=== PATIENT | female | born 1980 | race Hispanic/Latino ===

== ENCOUNTER 2018-11-29 10:14 | Inpatient (IN) | payer OTHER, SELFPAY ==
[2018-11-29 10:59] LABS: Absolute Lymphocytes (CBC) 0.7 K/uL (0.7-4.9); Absolute Neutrophil 10.1 K/uL (1.8-8.0); Basophils % 0.1 % (0-1.3); Lymphocytes % 6.3 % (15.3-44.8); MPV 8.6 fL (7.6-11.3); Monocytes % 8.8 % (3.3-12.3); RBC Red Blood Cell Count 4.02 M/uL (3.86-4.86)
[2018-11-29] MEDS ORDERED: NA CHLORIDE 0.9% 1,000 ML ONE ×2 (11:03→15:27)
--- NOTE | 2018-11-29 11:11 | RAD REPORT ---
EXAM DESCRIPTION: RAD - Chest Single View - 11/29/2018 11:03 am CLINICAL HISTORY: CHEST PAIN Chest pain. COMPARISON: CHEST SINGLE VIEW dated 06/06/2015 FINDINGS: Portable technique limits examination quality. Mild linear opacities are seen in the left lung base, suspicious developing infiltrate/pneumonia. The heart is normal in size. No displaced fractures.
[2018-11-29 11:14] LABS: BUN Blood Urea Nitrogen 10 mg/dL (7-18); Bicarbonate 25 mmol/L (21-32); Glucose Level 104 mg/dL (74-106); NT PRO-BNP 1895 pg/mL (<125); Potassium 3.5 mmol/L (3.5-5.1); Sodium Level 133 mmol/L (136-145); Troponin (Emerg Dept Use Only) < 0.02 ng/mL (0.0-0.045)
[2018-11-29] MEDS ORDERED: IBUPROFEN 200 MG TAB PO ONE (12:39)
[2018-11-29] MEDS ORDERED: Levofloxacin 750mg IV 750 MG/150 ML BAG IV ONE (12:40)
[2018-11-29 13:28] LABS: Urine Blood NEGATIVE (NEG); Urine Glucose NEGATIVE (NEG); Urine Protein NEGATIVE (NEG); Urine Specific Gravity <1.005 (1.005-1.030); Urine pH 6.5 (5.0-7.0)
--- NOTE | 2018-11-29 13:42 | RAD REPORT ---
EXAM DESCRIPTION: CT - Chest For Pe Angio - 11/29/2018 1:27 pm CLINICAL HISTORY: Chest pain COMPARISON: November 29, 2018 chest x-ray TECHNIQUE: Dynamically enhanced axial 3 mm thick images of the chest were obtained during administra tion of <100> mL Isovue 370 IV contrast. Coronal and oblique reconstruction images were generated and reviewed. Exam utilizes a protocol for optimal evaluation of pulmonary arterial tree. Maximum intensity projections 3D imaging was utilized All CT scans are performed using dose optimization technique as appropriate and may include automated exposure control or mA/KV adjustment according to patient size. FINDINGS: A pulmonary embolus is not seen. A thoracic aortic aneurysm is not noted. A pleural effusion is not seen. A pericardial effusion is not seen. A 2 centimeter left lower lobe opacity. [id number] lingular and right lower lobe alveolar opaci ties. Fatty liver IMPRESSION: Negative for a pulmonary embolism. These findings most likely represent a bilateral pneumonia. This should be followed until it is clear to help exclude a post obstructive process/underlying mass
[2018-11-29 13:50] LABS: Urine Bacteria 20-50 /HPF (<20); Urine Culture Reflex Order NOT NEEDED; Urine RBC <5 /HPF (NONE SEEN)
--- NOTE | 2018-11-29 13:57 | EDPHYS ---
Physician Documentation [facility] – [place], [place] Name: Serina Coello Age: 38 yrs Sex: Female : 1980 Arrival Date: 11/29/2018 Time: 10:18 Bed 4 Private MD: ED Physician Dennis Thao HPI: 11/29 10:33 This 38 yrs old Female presents to ER via Wheelchair with complaints of Chest rn Pain. 10:33 The patient or guardian reports chest pain that is located primarily in the anterior rn chest wall, left. The pain radiates to the left arm, the left shoulder. Associated signs and symptoms: Pertinent positives: cough, shortness of breath. The chest pain is described as tight. Duration: The patient or guardian reports a single episode. Modifying factors: The symptoms are alleviated by nothing. the symptoms are aggravated by nothing. Severity of pain: At its worst the pain was moderate in the emergency department the pain is unchanged. The patient has experienced a previous episode. Reports fever and chills last night, + mild cough and congestion, chest tightness, more trouble getting deep breath since last night, constant, not better this morning so came in for eval. Reports grandfather had heart problems at young age and of heart attack. No abd pain/vomiting/diarrhea. . 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 - Social history:: Smoking status: Patient uses tobacco products, smokes .75 packs per day, Patient uses alcohol, only on a social basis. - Ebola Screening: : No symptoms or risks identified at this time. - Family history:: pertinent for heart disease. - Hospitalizations: : No recent hospitalization is reported. ROS: 10:35 Constitutional: + fever and chills Eyes: Negative for injury, pain, redness, and rn occupational health, Neck: Negative for injury, pain, and swelling, Cardiovascular: Negative for chest pain, palpitations, and edema, Respiratory: + cough and sob Abdomen/GI: Negative for abdominal pain, nausea, vomiting, diarrhea, and constipation, Back: Negative for injury and pain, : Negative for injury, bleeding, discharge, and swelling, MS/Extremity: Negative for injury and deformity, Skin: Negative for injury, rash, and discoloration, Neuro: Negative for headache, weakness, numbness, tingling, and seizure. Exam: 10:35 Constitutional: This is a well developed, well nourished patient who is awake, alert, rn appears anxious Head/Face: Normocephalic, atraumatic. Eyes: Pupils equal round and reactive to light, extra-ocular motions intact. Lids and lashes normal. Conjunctiva and sclera are non-icteric and not injected. Cornea within normal limits. Periorbital areas with no swelling, redness, or edema. ENT: MMM Neck: Trachea midline, no thyromegaly or masses palpated, and no cervical lymphadenopathy. Supple, full range of motion without nuchal rigidity, or vertebral point tenderness. No Meningismus. Cardiovascular: tachycardic, regular, no murmur Respiratory: mild tachypnea, no retractions, clear bilaterally Abdomen/GI: soft, non-tender Skin: Warm, dry MS/ Extremity: Pulses equal, no cyanosis. Neurovascular intact. Full, normal range of motion. Equal circumference. Neuro: Awake and alert, GCS 15, oriented to person, place, time, and situation. Cranial nerves II-XII grossly intact. Motor strength 5/5 in all extremities. Sensory grossly intact. Cerebellar exam normal. Normal gait. Vital Signs: 10:30 BP 129 / 97; Pulse 107; Resp 20; Temp 97.5(O); Pulse Ox 98% on R/A; Weight 58.97 kg; sv Height 5 ft. 5 in. (165.10 cm); Pain 6/10; 11:10 BP 82 / 65; Pulse 102; Resp 18; Pulse Ox 100% on R/A; hb 12:00 BP 74 / 58; Pulse 98; Resp 16; Pulse Ox 100% on R/A; hb 12:30 BP 82 / 65; Pulse 100; Resp 24; Pulse Ox 100% on R/A; Pain 7/10; hb 12:45 BP 82 / 63; Pulse 104; Resp 21; Pulse Ox 98% on R/A; hb 13:40 BP 94 / 66 LA Supine (auto/pedi); Pulse 104; Resp 22; Pulse Ox 100% on R/A; em1 14:21 BP 93 / 67; Pulse 102; Resp 21; Pulse Ox 99% on R/A; hb 15:02 BP 82 / 57; Pulse 107; Resp 24; Pulse Ox 97% on R/A; hb 15:30 BP 78 / 48; Pulse 107; Resp 22; Pulse Ox 98% on R/A; hb 15:56 BP 96 / 77; Pulse 103; Resp 24; Pulse Ox 96% on R/A; hb 16:42 BP 102 / 89; Pulse 102; Resp 24; Pulse Ox 96% on R/A; hb 10:30 Body Mass Index 21.63 (58.97 kg, 165.10 cm) sv MDM: 10:21 Patient medically screened. rn 13:54 Differential diagnosis: chest wall pain, costochondritis, pleurisy, pneumonia, rn pneumothorax, pulmonary embolus. Data reviewed: vital signs, nurses notes, lab test result(s), EKG, radiologic studies, CT scan, plain films, and as a result, I will admit patient. Test interpretation: by ED physician or midlevel provider: plain radiologic studies, XRAY with LLL pneumonia. Counseling: I had a detailed discussion with the patient and/or guardian regarding: the historical points, exam findings, and any diagnostic results supporting the discharge/admit diagnosis, lab results, radiology results, the need for further work-up and treatment in the hospital. Admission orders: after a detailed discussion of the patient's condition and case, the admit orders are written by me. ED course: Pt with multifocal pneumonia, elevated WBC and procalcitonin, borderline BP, improving with fluids, will admit. . 11/29 10:28 Order name: Basic Metabolic Panel; Complete Time: 11: rn 11/29 10:28 Order name: CBC with Diff; Complete Time: 11: rn 11/29 10:28 Order name: NT PRO-BNP; Complete Time: rn 11/29 10:28 Order name: Troponin (emerg Dept Use Only); Complete Time: 11: rn 11/29 10:28 Order name: Flu; Complete Time: : rn 11/29 10:28 Order name: Procalcitonin; Complete Time: 13: rn 11/29 10:28 Order name: XRAY Chest (1 view); Complete Time: 11: rn 11/29 10:28 Order name: D-Dimer; Complete Time: 11:12 rn 11/29 10:28 Order name: Urine Microscopic Only; Complete Time: 13:54 rn 11/29 11:48 Order name: CT Chest For PE Angio; Complete Time: 13:43 rn 11/29 11:48 Order name: Blood Culture Adult (2) rn 11/29 13:20 Order name: Urine Dipstick--Ancillary (enter results); Complete Time: 13:43 bd 11/29 10:28 Order name: EKG; Complete Time: 10:29 rn 11/29 10:28 Order name: Cardiac monitoring; Complete Time: 10:49 rn 11/29 10:28 Order name: EKG - Nurse/Tech; Complete Time: 10:49 rn 11/29 10:28 Order name: IV Saline Lock; Complete Time: 10:49 rn 11/29 10:28 Order name: Labs collected and sent; Complete Time: 10:49 rn 11/29 10:28 Order name: O2 Per Protocol; Complete Time: 10:49 rn 11/29 10:28 Order name: O2 Sat Monitoring; Complete Time: 10:49 rn 11/29 10:28 Order name: Urine Dipstick-Ancillary (obtain specimen); Complete Time: 13:26 rn 11/29 10:28 Order name: Urine Test (obtain specimen); Complete Time: 13:26 rn Administered Medications: 10:51 Drug: NS 0.9% 1000 ml Route: IV; Rate: 1000 ml; Site: right antecubital; hb 11:20 Follow up: Response: No adverse reaction; IV Status: Completed infusion; IV Intake: hb 1000ml 11:54 Drug: NS 0.9% 1000 ml Route: IV; Rate: 1000 ml; Site: right antecubital; hb 12:33 Follow up: Response: No adverse reaction; IV Status: Completed infusion; IV Intake: hb 1000ml 11:55 Drug: NS 0.9% 1000 ml Route: IV; Rate: 1000 ml; Site: right antecubital; hb 14:25 Follow up: Response: No adverse reaction; IV Status: Completed infusion; IV Intake: hb 1000ml 12:36 Drug: LevaQUIN 750 mg Volume: 150 ml; Route: IVPB; Infused Over: 90 mins; Site: right hb antecubital; 14:02 Follow up: Response: No adverse reaction; IV Status: Completed infusion; IV Intake: hb 150ml 12:36 Drug: Motrin 800 mg Route: PO; hb 13:30 Follow up: Response: No adverse reaction; Pain is decreased hb 15:35 Drug: NS 0.9% 1000 ml Route: IV; Rate: 1000 ml; Site: right antecubital; hb 16:29 Follow up: Response: No adverse reaction; IV Intake: 1000ml hb 16:30 Follow up: Response: No adverse reaction; IV Status: Completed infusion; IV Intake: hb 1000ml Disposition: 11/29/18 13:56 Hospitalization ordered by Harmeet Ponce for Inpatient Admission. Preliminary diagnosis are Multi-focal Pneumonia, Chest pain, unspecified. - Bed requested for Telemetry/MedSurg (Inpatient). - Status is Inpatient Admission. dm5 - Condition is Stable. - Problem is new. - Symptoms have improved. UTI on Admission? No Signatures: Dispatcher [employer] EDMS Viktoriya Monson RN RN [facility] Zulma Cheung RN RN sv Woody, Diana, RN RN Dennis Thao MD MD rn Baxter, Heather, RN RN Corrections: (The following items were deleted from the chart) 10:35 10:35 Family history: not pertinent, rn rn 16:38 13:56 Hospitalization Ordered by Harmeet Ponce DO for Inpatient Admission. Preliminary dw diagnosis is Multi-focal Pneumonia; Chest pain, unspecified. Bed requested for Telemetry/MedSurg (Inpatient). Status is Inpatient Admission. Condition is Stable. Problem is new. Symptoms have improved. UTI on Admission? No. rn 17:45 16:38 11/29/2018 13:56 Hospitalization Ordered by Harmeet Ponce DO for Inpatient dm5 Admission. Preliminary diagnosis is Multi-focal Pneumonia; Chest pain, unspecified. Bed requested for Telemetry/MedSurg (Inpatient). Status is Inpatient Admission. Condition is Stable. Problem is new. Symptoms have improved. UTI on Admission? No. dw
--- NOTE | 2018-11-29 13:57 | ER ---
Nurse's Notes [facility] Name: Serina Coello Age: 38 yrs Sex: Female : 1980 Arrival Date: 11/29/2018 Time: 10:18 Bed 4 Private MD: Diagnosis: Multi-focal Pneumonia;Chest pain, unspecified Presentation: 11/29 10:21 Presenting complaint: Patient states: left sided chest pain with left arm numbness, sv head heavy, chest congestion, subjective fever x 1 day. Stated her BP at work was 60/40 and has been dizzy. Transition of care: patient was not received from another setting of care. Onset of symptoms was November 28, 2018. Risk Assessment: Do you want to hurt yourself or someone else? Patient reports no desire to harm self or others. Initial Sepsis Screen: Does the patient meet any 2 criteria? No. Patient's initial sepsis screen is negative. Does the patient have a suspected source of infection? No. Patient's initial sepsis screen is negative. Care prior to arrival: None. 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 - Social history:: Smoking status: Patient uses tobacco products, smokes .75 packs per day, Patient uses alcohol, only on a social basis. - Ebola Screening: : No symptoms or risks identified at this time. - Family history:: pertinent for heart disease. - Hospitalizations: : No recent hospitalization is reported. Screenin:52 Abuse screen: Denies threats or abuse. Denies injuries from another. Nutritional hb screening: No deficits noted. Tuberculosis screening: No symptoms or risk factors identified. Fall Risk None identified. Assessment: 10:52 General: Appears in no apparent distress. Behavior is calm, cooperative. Pain: hb Complains of pain in chest Pain radiates to left arm Pain currently is 4 out of 10 on a pain scale. Pain began gradually, 1 day ago. Neuro: Level of Consciousness is awake, alert, obeys commands, Oriented to person, place, time, situation. Cardiovascular: Heart tones S1 S2 present Capillary refill < 3 seconds Patient's skin is warm and dry. Respiratory: Reports cough that is Airway is patent Respiratory effort is even, unlabored, Respiratory pattern is regular, symmetrical, Breath sounds are clear bilaterally. GI: No signs and/or symptoms were reported involving the gastrointestinal system. : No signs and/or symptoms were reported regarding the genitourinary system. EENT: No signs and/or symptoms were reported regarding the EENT system. Derm: Skin is intact, is healthy with good turgor. 11:30 Reassessment: SBP 70s-80s, GCS15, Dr. Thao aware, NS bolus infusing at this time. hb Family remains at bedside. 12:30 Reassessment: Patient appears in no apparent distress at this time. Patient and/or hb family updated on plan of care and expected duration. Pain level reassessed. Patient is alert, oriented x 3, equal unlabored respirations, skin warm/dry/pink. 13:30 Reassessment: Patient appears in no apparent distress at this time. Patient and/or hb family updated on plan of care and expected duration. Pain level reassessed. Patient is alert, oriented x 3, equal unlabored respirations, skin warm/dry/pink. 14:22 Reassessment: Patient appears in no apparent distress at this time. Patient and/or hb family updated on plan of care and expected duration. Pain level reassessed. Patient is alert, oriented x 3, equal unlabored respirations, skin warm/dry/pink. Admission ordered, awaiting room assignment at this time. 15:00 Reassessment: Patient appears in no apparent distress at this time. No changes from previously documented assessment. Patient and/or family updated on plan of care and expected duration. Pain level reassessed. Patient is alert, oriented x 3, equal unlabored respirations, skin warm/dry/pink. 15:35 Reassessment: [id number], HR 107, Dr. Thao notified, repeat NS bolus administered as hb ordered. Awaiting room assignment at this time. Family remains at bedside. 16:30 Reassessment: Patient appears in no apparent distress at this time. Patient and/or hb family updated on plan of care and expected duration. Pain level reassessed. Patient is alert, oriented x 3, equal unlabored respirations, skin warm/dry/pink. Patient states symptoms have improved. Vital Signs: 10:30 BP 129 / 97; Pulse 107; Resp 20; Temp 97.5(O); Pulse Ox 98% on R/A; Weight 58.97 kg; sv Height 5 ft. 5 in. (165.10 cm); Pain 6/10; 11:10 BP 82 / 65; Pulse 102; Resp 18; Pulse Ox 100% on R/A; hb 12:00 BP 74 / 58; Pulse 98; Resp 16; Pulse Ox 100% on R/A; hb 12:30 BP 82 / 65; Pulse 100; Resp 24; Pulse Ox 100% on R/A; Pain 7/10; hb 12:45 BP 82 / 63; Pulse 104; Resp 21; Pulse Ox 98% on R/A; hb 13:40 BP 94 / 66 LA Supine (auto/pedi); Pulse 104; Resp 22; Pulse Ox 100% on R/A; em1 14:21 BP 93 / 67; Pulse 102; Resp 21; Pulse Ox 99% on R/A; hb 15:02 BP 82 / 57; Pulse 107; Resp 24; Pulse Ox 97% on R/A; hb 15:30 BP 78 / 48; Pulse 107; Resp 22; Pulse Ox 98% on R/A; hb 15:56 BP 96 / 77; Pulse 103; Resp 24; Pulse Ox 96% on R/A; hb 16:42 BP 102 / 89; Pulse 102; Resp 24; Pulse Ox 96% on R/A; hb 10:30 Body Mass Index 21.63 (58.97 kg, 165.10 cm) sv ED Course: 10:18 Patient arrived in ED. mr 10:21 Dennis Thao MD is Attending Physician. rn 10:24 Cuca Alexander, RN is Primary Nurse. iw 10:29 Triage completed. sv 10:30 Arm band placed on. sv 10:39 EKG done, by ED staff, reviewed by Dennis Thao MD. em1 10:47 Cuca Alexander, RN is Primary Nurse. iw 10:47 Primary Nurse role handed off by Cuca Alexander, RN hb 10:47 Gabriela Carrillo, RN is Primary Nurse. hb 10:51 Initial lab(s) drawn, by ED staff, sent to lab. Flu and/or RSV swab sent to lab. em1 Inserted saline lock: 20 gauge in right antecubital area, using aseptic technique. Blood collected. 10:52 Patient has correct armband on for positive identification. Placed in gown. Bed in low hb position. Call light in reach. Side rails up X 1. forensic anthropologist on. Pulse ox on. NIBP on. 10:52 Patient maintains SpO2 saturation greater than 95% on room air. hb 11:03 XRAY Chest (1 view) In Process Unspecified. EDMS 11:04 X-ray completed. Portable x-ray completed in exam room. Patient tolerated procedure sw well. 11:11 Notified ED physician of a critical lab result(s). DDIMER [id number]. ss 12:07 Radiology exam delayed due to test not completed at this time. sj 12:58 Radiology exam delayed due to test not completed at this time. kw1 13:25 CT completed. Patient tolerated procedure well. Patient moved to CT via wheelchair. ls3 Patient moved back from CT. 13:27 CT Chest For PE Angio In Process Unspecified. EDMS 13:55 Harmeet Ponce DO is Hospitalizing Provider. rn 17:30 No provider procedures requiring assistance completed. Patient admitted, IV remains in hb place. Administered Medications: 10:51 Drug: NS 0.9% 1000 ml Route: IV; Rate: 1000 ml; Site: right antecubital; hb 11:20 Follow up: Response: No adverse reaction; IV Status: Completed infusion; IV Intake: hb 1000ml 11:54 Drug: NS 0.9% 1000 ml Route: IV; Rate: 1000 ml; Site: right antecubital; hb 12:33 Follow up: Response: No adverse reaction; IV Status: Completed infusion; IV Intake: hb 1000ml 11:55 Drug: NS 0.9% 1000 ml Route: IV; Rate: 1000 ml; Site: right antecubital; hb 14:25 Follow up: Response: No adverse reaction; IV Status: Completed infusion; IV Intake: hb 1000ml 12:36 Drug: LevaQUIN 750 mg Volume: 150 ml; Route: IVPB; Infused Over: 90 mins; Site: right hb antecubital; 14:02 Follow up: Response: No adverse reaction; IV Status: Completed infusion; IV Intake: hb 150ml 12:36 Drug: Motrin 800 mg Route: PO; hb 13:30 Follow up: Response: No adverse reaction; Pain is decreased hb 15:35 Drug: NS 0.9% 1000 ml Route: IV; Rate: 1000 ml; Site: right antecubital; hb 16:29 Follow up: Response: No adverse reaction; IV Intake: 1000ml hb 16:30 Follow up: Response: No adverse reaction; IV Status: Completed infusion; IV Intake: hb 1000ml Intake: 11:20 IV: 1000ml; Total: 1000ml. hb 12:33 IV: 1000ml; Total: 2000ml. hb 14:02 IV: 150ml; Total: 2150ml. hb 14:25 IV: 1000ml; Total: 3150ml. hb 16:29 IV: 1000ml; Total: 4150ml. hb 16:30 IV: 1000ml; Total: 5150ml. hb Outcome: 13:56 Decision to Hospitalize by Provider. rn 17:44 Admitted to Tele accompanied by nurse, via stretcher, with chart. dm5 17:44 Condition: stable 17:44 Discharge instructions given to patient, Instructed on the need for admit. 17:45 Patient left the ED. dm5 Signatures: Dispatcher [employer] EDMS Viktoriya Monson, RN RN dm5 Zulma Cheung RN ANDREY Montgomery, Courtney mr Wlison, Cuca Winn, RN Dennis Engel MD MD rn Martinez, Saji em1 Junie Sutherland RN RN ss Warren, Shannon sw Baxter, Heather, RN RN Evin, Mary kw1 Madhav Pritchett ls3 Corrections: (The following items were deleted from the chart) 10:35 10:35 Family history: not pertinent, rn rn 10:37 10:21 Presenting complaint: Patient states: left sided chest pain with left arm sv numbness, head heavy, chest congestion, subjective fever x 1 day. sv
--- NOTE | 2018-11-29 14:58 | P.HP ---
Certification for Inpatient Patient admitted to: Inpatient With expected LOS: >2 Midnights Patient will require the following post-hospital care: None Practitioner: I am a practitioner with admitting privileges, knowledge of patient current condition, hospital course, and medical plan of care. Services: Services provided to patient in accordance with Admission requirements found in Title 42 Section 412.3 of the Code of Federal Regulations Patient History Date of Service: 11/29/18 Primary Care Provider: Dr. Berkowitz Reason for admission: Chest pain, shortness of breath, fever History of Present Illness: 38-year-old female presented to the emergency room with chest pain, shortness of breath and fever. She reports chest pain and shortness of breath starting yesterday. She also reported fever. She had reported a cough about 3 weeks ago. She never really cleared from the cough. Last night she start to notice increased chills and sweats. She felt very tired and weak today. She came to the ER for further evaluation. In the ER patient was evaluated. Initially blood pressure was stable. Then she had some hypotension. She was given IV fluid bolus. Fever and tachycardia was noted. Initial chest x-ray showed left lower lobe pneumonia. CT chest showed no pulmonary embolism but multifocal bilateral pneumonia noted white count 11.9, hemoglobin 14. Pro calcitonin elevated at 23.6. Sodium 133, potassium 3.5, BUN of 10, creatinine 1.2 with a GFR 50. Patient was given IV antibiotic therapy. Patient admitted for further treatment. When I saw the patient in ER, she appeared comfortable. Some chills noted. Patient with underlying history of fatty liver-PLATA,hypothyroidism, depression and tobacco use. Allergies PENICILLINS Allergy (Uncoded 06/06/15 22:23) Unknown Home medications list reviewed: Yes Home Medications: Esomeprazole Mag Trihydrate [Nexium] 1 cap PO DAILY 04/14/17 Levothyroxine Sodium 50 mcg PO DAILY 04/14/17 - Past Medical/Surgical History Diabetic: No -: Hypothyroidism -: Depression -: Fatty liver/PLATA -: Tobacco abuse -: Alcohol use -: History of gastric surgery -: Gastric sleeve Psychosocial/ Personal History: Patient is . She has 3 children. 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 - Family History Father -: Heart disease, Liver disease, Other (see notes) (Fatty liver) - Social History Smoking Status: Light Tobacco smoker (1-9 cigarettes/day) Smoking therapy provided: Yes Patient receptive to therapy: Yes Alcohol use: Yes CD- Drugs: No Caffeine use: Yes Place of Residence: Home Review of Systems General: Fever, Chills, Sweats, Weakness, Malaise, As per HPI Eyes: Unremarkable ENT: Nose Congestion, As per HPI Respiratory: Cough, Shortness of Breath, SOB with Excertion, As per HPI Cardiovascular: Chest Pain, As per HPI Gastrointestinal: Unremarkable Genitourinary: Dysuria, As per HPI Musculoskeletal: As per HPI Integumentary: Unremarkable Neurological: As per HPI Lymphatics: Unremarkable Physical Examination - Physical Exam General: Alert, In no apparent distress, Oriented x3, Cooperative HEENT: Atraumatic, Normocephalic, Other (Nasal congestion bilateral), EOMI Neck: Supple Respiratory: Crackles/rales (Crackles to the bases) Cardiovascular: Normal pulses, Regular rate/rhythm Gastrointestinal: Normal bowel sounds, Soft and benign, Non-distended Musculoskeletal: No erythema, No tenderness, No warmth Integumentary: No tenderness/swelling, No erythema, No warmth, No cyanosis Neurological: Normal speech, Normal strength at 5/5 x4 extr, Normal tone - Studies Laboratory Data (last 24 hrs) 11/29/18 10:48: WBC 11.9 H, Hgb 14.7, Hct 42.0, Plt Count 210 11/29/18 10:48: Sodium 133 L, Potassium 3.5, BUN 10, Creatinine 1.20, Glucose 104 Microbiology Data (last 24 hrs): 11/29/18 10:48 Nasopharnyx Influenza Type A Antigen Screen - Final 11/29/18 10:48 Nasopharnyx Influenza Type B Antigen Screen - Final Assessment and Plan - Plan Impression: Chest pain, shortness of breath, fever secondary to sepsis related to bilateral multifocal pneumonia and UTI Hypothyroidism Depression Tobacco and alcohol use Plan: Chest pain, shortness of breath, fever secondary to sepsis related to bilateral multifocal pneumonia and UTI: Patient will be admitted for further treatment. Will continue with IV Levaquin. Continue with aggressive IV fluids. Patient given fluid bolus in the emergency room. Will continue sepsis protocol. Will monitor closely. Blood, sputum and urine cultures obtained. Will provide medication for cough and congestion. Will continue with DVT prophylaxis- Lovenox. Recheck chest x-ray tomorrow. Maintain sats above 90%. Will provide medication for shortness of breath. Will consult pulmonology for further recommendation. Hypothyroidism: Restart home medication. Depression: Restart home medication. Tobacco and alcohol use: Will address lifestyle modification education and cessation. Discharge Plan: Home Plan to discharge in: Greater than 2 days - Advance Directives Does patient have a Living Will: No Does patient have a Durable POA for Healthcare: No - Code Status/Comfort Care Code Status Assessed: Yes (Patient is full code.) Time Spent Managing Pts Care (In Minutes): 55
--- NOTE | 2018-11-29 15:42 | EKG ---
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
[2018-11-29] MEDS: NA CHLORIDE 0.9% 1,000 ML IV SCH (17:42)
[2018-11-29] MEDS: ALBUTEROL 2.5 MG/3 ML NEB SOL NEB PRN (20:30)
[2018-11-29] MEDS: FAMOTIDINE 20 MG TAB PO SCH (20:57)
[2018-11-29] MEDS: GUAIFENESIN 600 MG SA TAB PO SCH (20:57)
[2018-11-29] MEDS ORDERED: MELATONIN 3 MG TABLET PO ONE (22:25)
[2018-11-29] MEDS: NICOTINE 21 MG/PAT TD SCH (23:22)
[2018-11-29] MEDS: TRAMADOL HCL 50 MG TAB PO PRN (23:22)
[2018-11-30] MEDS: NA CHLORIDE 0.9% 1,000 ML IV SCH ×4 (01:39→17:11)
[2018-11-30] MEDS: ALBUTEROL 2.5 MG/3 ML NEB SOL NEB PRN ×2 (02:30→14:50)
[2018-11-30] MEDS ORDERED: NA CHLORIDE 0.9% 1,000 ML IV ONE (03:29)
--- NOTE | 2018-11-30 05:00 | P.INFCA ---
Sepsis Focused Assessment - Focused Assessment Complete? Sepsis Focused Assessment Completed?: Yes - Sepsis Screen Result Severe Sepsis: Positive - Evaluation Current stage of sepsis: Severe sepsis - Vital Signs Reviewed: Yes Temperature: 98.6 F Heart rate: 111 Blood Pressure: 90/54 Respiratory Rate: 22 O2 Sat by Pulse Oximetry: 97 - Examination Date exam was performed: 11/29/18 Time exam was performed: 21:00 Heart: Regular rate/rhythm Lungs: Crackles Peripheral pulses: 3+ Normal Capillary refill: <2 Seconds Skin examination: Normal turgor
[2018-11-30] MEDS: LEVOTHYROXINE SOD 0.05 MG TABLET PO SCH (05:54)
[2018-11-30] MEDS: TRAMADOL HCL 50 MG TAB PO PRN (05:54)
[2018-11-30] MEDS: NICOTINE 21 MG/PAT TD SCH (08:19)
[2018-11-30] MEDS: CITALOPRAM 10 MG TABLET PO SCH (08:19)
[2018-11-30] MEDS: FOLIC ACID 1 MG TABLET PO SCH (08:20)
[2018-11-30] MEDS: FAMOTIDINE 20 MG TAB PO SCH ×2 (08:20→20:11)
[2018-11-30] MEDS: GUAIFENESIN 600 MG SA TAB PO SCH ×2 (08:20→20:11)
[2018-11-30] MEDS: Levofloxacin 750mg IV 750 MG/150 ML BAG IV SCH (08:20)
--- NOTE | 2018-11-30 08:31 | P.CNS ---
Date of Consult: 11/30/18 Primary Care Provider: Dr. Berkowitz Chief Complaint: Pneumonia History of Present Illness: Patient is 38 years of age has had chest congestion for several weeks including intermittent cough she took [id number] Mucinex got worse over the weekend developed so throat on Thursday she had a high fever, shaking chills and some left -sided chest pain felt lightheaded and appeared in the emergency room with a diagnosis of left lower lobe pneumonia feels a little better still having the above symptoms no history off prior cardiopulmonary problems patient is an active smoker Allergies PENICILLINS Allergy (Uncoded 11/29/18 18:12) Hives Home Medications: Levothyroxine Sodium 50 mcg PO DAILY 04/14/17 Citalopram [Celexa*] 20 mg PO DAILY 11/29/18 - Past Medical/Surgical History Diabetic: No -: Hypothyroidism -: Depression -: Fatty liver/PLATA -: Tobacco abuse -: Alcohol use -: History of gastric surgery -: Gastric sleeve Psychosocial/ Personal History: Patient is . She has 3 children. 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 - Family History Father Medical History: Heart disease, Liver disease, Other (see notes) Mother Notes: cirrohsis - Social History Smoking Status: Current every day smoker Alcohol use: Yes CD- Drugs: No Caffeine use: Yes Place of Residence: Home Review of Systems 10-point ROS is otherwise unremarkable General: Weakness Respiratory: Cough, Shortness of Breath Cardiovascular: Chest Pain Physical Examination Temp Pulse Resp BP Pulse Ox 98.6 F 111 H 22 H 90/54 L 97 11/30/18 05:00 11/30/18 05:00 11/30/18 05:00 11/30/18 05:00 11/30/18 05:00 General: Alert, Oriented x3 HEENT: Atraumatic Neck: Supple Respiratory: Clear to auscultation bilaterally Cardiovascular: No edema, Regular rate/rhythm Gastrointestinal: Normal bowel sounds, Soft and benign Laboratory Data (last 24 hrs) 11/29/18 10:48: WBC 11.9 H, Hgb 14.7, Hct 42.0, Plt Count 210 11/29/18 10:48: Sodium 133 L, Potassium 3.5, BUN 10, Creatinine 1.20, Glucose 104 - Problems (1) Pneumonia Current Visit: Yes Status: Acute Plan: Patient is 38 years of age admitted with acute left lower lobe pneumonia not visible on the chest x-ray white count is mildly elevated patient's blood pressure is low on IV levofloxacin labs reviewed cultures are all pending continue with IV levofloxacin fluid boluses saturation satisfactory still complaining of some chest discomfort Qualifiers: Laterality: left Lung location: lower lobe of lung
[2018-11-30 08:49] LABS: Absolute Lymphocytes (CBC) 1.1 K/uL (0.7-4.9); Absolute Monocytes 0.5 K/uL (0.1-1.3); Absolute Neutrophil 7.5 K/uL (1.8-8.0); Basophils % 0.2 % (0-1.3); Eosinophils % 0.6 % (0-4.4); Hematocrit 37.5 % (36.0-45.0); Lymphocytes % 12.2 % (15.3-44.8); MPV 8.9 fL (7.6-11.3); Monocytes % 5.1 % (3.3-12.3); RBC Red Blood Cell Count 3.53 M/uL (3.86-4.86)
[2018-11-30 09:16] LABS: Albumin 2.1 g/dL (3.4-5.0); Bilirubin Direct 0.8 mg/dL (0-0.2); Bilirubin Total 1.3 mg/dL (0.2-1.0); Protein, Total 5.5 g/dL (6.4-8.2)
[2018-11-30 09:20] LABS: BUN Blood Urea Nitrogen 7 mg/dL (7-18); Bicarbonate 23 mmol/L (21-32); Glucose Level 76 mg/dL (74-106); Potassium 3.4 mmol/L (3.5-5.1); Sodium Level 141 mmol/L (136-145)
[2018-11-30 09:37] LABS: Magnesium 1.3 mg/dL (1.8-2.4)
[2018-11-30] MEDS ORDERED: Magnesium Sulfate 2gm IVPB 2 G/50 ML BAG IV ONE (09:42)
[2018-11-30 10:49] LABS: Blood Morphology Comment NOTED (NOT SEEN); Macrocytosis 1+; Platelet Estimate ADEQ; Urine White Blood Cell Casts OK
--- NOTE | 2018-11-30 11:17 | RAD REPORT ---
EXAM DESCRIPTION: US - Abdomen Exam Complete - 11/30/2018 11:01 am CLINICAL HISTORY: Right upper quadrant pain COMPARISON: March 2017 FINDINGS: Gallbladder size is normal. No gallstones or measurable sludge seen. Gallbladder wall thic kening is present up to 7-8 mm. Minimal pericholecystic fluid is seen. Common bile duct is normal at 3 mm with no common duct stone identified. Liver is 16 cm in maximum dimension. No nodularity of the liver capsule. Liver parenchyma is minimall y echogenic which is nonspecific. No focal liver lesion identified. Doppler evaluation shows normal v elocity and flow direction of the portal vein. Spleen is 11-12 cm with no focal splenic abnormality. The pancreas is normal. No hydronephrosis or suspicious mass in either kidney. Aorta is normal is size. No ascites or bulky lymphadenopathy. No IVC abnormality. IMPRESSION: Gallbladder wall thickening without stones or sludge identifiable. No biliary tree abnor mality seen. Gallbladder findings may be secondary to underlying liver disease. An acalculous cholecystitis would be possible but needs corresponding clinical findings. Liver size is normal with no focal liver lesion.
--- NOTE | 2018-11-30 11:50 | P.PN ---
Subjective Date of Service: 11/30/18 Primary Care Provider: Dr. Berkowitz Chief Complaint: Pneumonia Subjective: Other (Patient received fluid bolus this morning due to low blood pressure. Patient still with fatigue. Shortness of breath improved.) Physical Examination - Vital Signs Temperature: 97.8 F Blood Pressure: 74/51 Pulse: 96 Respirations: 26 Pulse Ox (%): 97 - Physical Exam General: Alert, In no apparent distress, Oriented x3, Cooperative HEENT: Atraumatic Neck: Supple Respiratory: Crackles/rales (To the bases bilateral), Other (Better air movement bilateral) Cardiovascular: Normal pulses, Regular rate/rhythm Gastrointestinal: Normal bowel sounds, Soft and benign, Non-distended, No masses , No rebound, No guarding, Tenderness (Minimal pain to the right upper quadrant) Musculoskeletal: No erythema, No tenderness, No warmth Integumentary: No erythema, No warmth, No cyanosis Neurological: Normal speech, Normal strength at 5/5 x4 extr, Normal tone, Normal affect - Studies Microbiology Data (last 24 hrs): 11/29/18 10:48 Nasopharnyx Influenza Type A Antigen Screen - Final 11/29/18 10:48 Nasopharnyx Influenza Type B Antigen Screen - Final Medications List Reviewed: Yes Assessment & Plan Discharge Plan: Home Plan to discharge in: Greater than 2 days Physician Review Additional Text: Impression: Chest pain, shortness of breath, fever secondary to sepsis related to bilateral multifocal pneumonia and UTI Hypothyroidism Depression Tobacco and alcohol use Plan: Chest pain, shortness of breath, fever secondary to sepsis related to bilateral multifocal pneumonia and UTI: Patient received fluid bolus early this morning. Will give another bolus to help with blood pressure control. Patient has received 3 total IV fluid boluses. Will continue with aggressive IV fluids. Continue with IV antibiotic therapy. Await blood, sputum and urine culture results. Will discuss with pulmonology. Recheck chest x-ray. Patient reports mild pain to the upper quadrant. Ultrasound negative. Will maintain sats above 90%. Will continue to monitor closely. Keep at bed rest until blood pressures are better controlled. Continue to monitor closely. Hypothyroidism: Continue home medication. Depression: Continue home medication. Tobacco and alcohol use: Will address lifestyle modification education and cessation. Time Spent Managing Pts Care (In Minutes): 55
[2018-11-30] MEDS ORDERED: VANCOMYCIN 1.5 GM in NA CHLORIDE 0.9% 500 ML IVPB ONE (13:00)
--- NOTE | 2018-11-30 15:50 | RAD REPORT ---
EXAM DESCRIPTION: RAD - Chest Single View - 11/30/2018 2:54 pm CLINICAL HISTORY: Pneumonia COMPARISON: November 29 TECHNIQUE: AP portable chest image was obtained 1450 hours . FINDINGS: Normal lung volumes noted. Patchy right lung base opacification is similar to comparison. Dense perihilar and infrahilar consolidation on the left appears to have progressed. Left heart borde r is mostly obscured. Left pleural effusion has developed. . Heart and vasculature are normal. No pne umothorax. No acute bony abnormality seen. No acute aortic findings suspected. IMPRESSION: Slight worsening of the left base consolidated pneumonia with development of pleural eff usion since prior imaging. No change to the right lung field.
[2018-11-30] MEDS: ENOXAPARIN 40 MG/0.4 ML SQ SCH (16:04)
[2018-11-30] MEDS: NAPROXEN 250 MG TAB PO PRN (20:11)
[2018-12-01] MEDS: VANCOMYCIN/NS 1 gm 1 GM/250 ML BAG IV SCH ×2 (00:27→13:38)
[2018-12-01] MEDS: NICOTINE 21 MG/PAT TD SCH ×3 (00:27→21:50)
[2018-12-01] MEDS: BENZONATATE 100 MG CAP PO PRN ×2 (00:34→21:50)
[2018-12-01] MEDS: NA CHLORIDE 0.9% 1,000 ML IV SCH ×4 (00:37→21:49)
[2018-12-01 05:11] LABS: Absolute Lymphocytes (CBC) 1.7 K/uL (0.7-4.9); Absolute Monocytes 0.5 K/uL (0.1-1.3); Absolute Neutrophil 6.7 K/uL (1.8-8.0); Basophils % 0.2 % (0-1.3); Eosinophils % 1.8 % (0-4.4); Hematocrit 34.4 % (36.0-45.0); Lymphocytes % 18.8 % (15.3-44.8); Monocytes % 5.3 % (3.3-12.3)
[2018-12-01 05:28] LABS: BUN Blood Urea Nitrogen 4 mg/dL (7-18); Bicarbonate 24 mmol/L (21-32); Glucose Level 74 mg/dL (74-106); Magnesium 2.1 mg/dL (1.8-2.4); Potassium 3.4 mmol/L (3.5-5.1); Sodium Level 142 mmol/L (136-145)
[2018-12-01] MEDS: LEVOTHYROXINE SOD 0.05 MG TABLET PO SCH (05:53)
[2018-12-01] MEDS: ALBUTEROL 2.5 MG/3 ML NEB SOL NEB PRN ×3 (08:00→19:50)
[2018-12-01] MEDS: FOLIC ACID 1 MG TABLET PO SCH (08:04)
[2018-12-01] MEDS: FAMOTIDINE 20 MG TAB PO SCH ×2 (08:04→21:50)
[2018-12-01] MEDS: GUAIFENESIN 600 MG SA TAB PO SCH ×2 (08:04→21:50)
[2018-12-01] MEDS: CITALOPRAM 10 MG TABLET PO SCH (08:04)
[2018-12-01] MEDS: Levofloxacin 750mg IV 750 MG/150 ML BAG IV SCH (08:05)
--- NOTE | 2018-12-01 08:30 | ECHO ---
HEIGHT: 5 ft 5 in WEIGHT: 131 lb 0 oz DATE OF STUDY: 11/30/[address]: Harmeet Ponce DO 2-DIMENSIONAL: YES M.MODE: YES DOPPLER: YES COLOR FLOW: YES TDS: YES PORTABLE: NO DEFINITY: NO BUBBLE STUDY: NO DIAGNOSIS: SEPSIS, BILATERAL PNEUMONIA, HYPOTENSION CARDIAC HISTORY: CATHERIZATION: NO SURGERY: NO PROSTHETIC VALVE: NO PACEMAKER: NO MEASUREMENTS (cm) DIASTOLIC (NORMALS) SYSTOLIC (NORMALS) IVSd 1.0 (0.6-1.2) LA Diam 2.5 (1.9-4.0) LVEF 61% LVIDd 3.6 (3.5-5.7) LVIDs 2.4 (2.0-3.5) %FS 32% LVPWd 1.0 (0.6-1.2) Ao Diam 2.2 (2.0-3.7) 2 DIMENSIONAL ASSESSMENT: RIGHT ATRIUM: NORMAL LEFT ATRIUM: NORMAL RIGHT VENTRICLE: NORMAL LEFT VENTRICLE: NORMAL TRICUSPID VALVE: NORMAL MITRAL VALVE: NORMAL PULMONIC VALVE: NORMAL AORTIC VALVE: NORMAL PERICARDIAL EFFUSION: NONE AORTIC ROOT: NORMAL LEFT VENTRICULAR WALL MOTION: NORMAL DOPPLER/COLOR FLOW: NORMAL COMMENTS: NORMAL 2D ECHOCARDIOGRAM WITH DOPPLER. TECHNOLOGIST: Jorge MEJÍA
--- NOTE | 2018-12-01 08:43 | P.PN ---
Subjective Date of Service: 12/01/18 Primary Care Provider: Dr. Berkowitz Chief Complaint: Pneumonia Subjective: Improving (Patient is feeling better will complaining of chest pain weak coughing white count is declining) Review of Systems General: Weakness ENT: Nose Discharge Respiratory: Cough, Shortness of Breath Cardiovascular: Chest Pain Physical Examination - Vital Signs Temperature: 98 F Blood Pressure: 96/67 Pulse: 81 Respirations: 14 Pulse Ox (%): 99 - Physical Exam General: Alert Neck: Supple Respiratory: Clear to auscultation bilaterally Cardiovascular: No edema, Regular rate/rhythm - Studies Medications List Reviewed: Yes Assessment & Plan - Problems (Diagnosis) (1) Pneumonia Current Visit: Yes Status: Acute Plan: Patient admitted with pneumonia he is doing better white count is declining oxygenation satisfactory blood pressure now stable plan to ambulate cultures negative plan to ambulate possible discharge tomorrow on levofloxacin continue with IV fluids Qualifiers: Laterality: left Lung location: lower lobe of lung Physician Review Additional Text: Impression: Chest pain, shortness of breath, fever secondary to sepsis related to bilateral multifocal pneumonia and UTI Hypothyroidism Depression Tobacco and alcohol use Plan: Chest pain, shortness of breath, fever secondary to sepsis related to bilateral multifocal pneumonia and UTI: Patient received fluid bolus early this morning. Will give another bolus to help with blood pressure control. Patient has received 3 total IV fluid boluses. Will continue with aggressive IV fluids. Continue with IV antibiotic therapy. Await blood, sputum and urine culture results. Will discuss with pulmonology. Recheck chest x-ray. Patient reports mild pain to the upper quadrant. Ultrasound negative. Will maintain sats above 90%. Will continue to monitor closely. Keep at bed rest until blood pressures are better controlled. Continue to monitor closely. Hypothyroidism: Continue home medication. Depression: Continue home medication. Tobacco and alcohol use: Will address lifestyle modification education and cessation.
[2018-12-01] MEDS: CALCIUM CARB 500MG/VIT D 200 IU TAB PO SCH ×4 (08:51→22:03)
[2018-12-01] MEDS: NAPROXEN 250 MG TAB PO PRN (10:29)
--- NOTE | 2018-12-01 11:33 | RAD REPORT ---
EXAM DESCRIPTION: RAD - Chest Pa And Lat (2 Views) - 12/01/2018 11:14 am CLINICAL HISTORY: follow up pneumonia Chest pain. COMPARISON: Chest Single View dated 11/30/2018; Chest Single View dated 11/29/2018; CHEST SINGLE VIEW dated 06/06/2015 FINDINGS: Left lung base consolidation with trace pleural fluid appears essentially stable since yes terday's study. The right lung appears grossly clear. The heart is normal in size. No displaced fract ures. IMPRESSION: Stable left lung base pneumonia since preceding day's comparative examination.
--- NOTE | 2018-12-01 13:19 | P.PN ---
Subjective Date of Service: 12/01/18 Primary Care Provider: Dr. Berkowitz Chief Complaint: Pneumonia Subjective: Improving Physical Examination - Vital Signs Temperature: 98.1 F Blood Pressure: 107/67 Pulse: 85 Respirations: 18 Pulse Ox (%): 99 - Physical Exam General: Alert, In no apparent distress, Oriented x3, Cooperative HEENT: Atraumatic Neck: Supple Respiratory: Crackles/rales (Crackles to the left base, better air movement) Cardiovascular: Normal pulses, Regular rate/rhythm Gastrointestinal: Normal bowel sounds, Soft and benign, Non-distended, No tenderness, No masses, No rebound, No guarding Neurological: Normal speech, Normal strength at 5/5 x4 extr, Normal tone - Studies Medications List Reviewed: Yes Assessment & Plan Discharge Plan: Home Plan to discharge in: 24 Hours Physician Review Additional Text: Impression: Chest pain, shortness of breath, fever secondary to sepsis related to bilateral multifocal pneumonia and UTI Hypothyroidism Depression Tobacco and alcohol use Plan: Chest pain, shortness of breath, fever secondary to sepsis related to bilateral multifocal pneumonia and UTI: Patient overall improved. Continue IV fluids. Continue IV antibiotic therapy. Possible discharge as early as tomorrow. Case discussed with pulmonology. Encourage incentive spirometer. Encourage ambulation if blood pressure remains stable. Hypothyroidism: Continue home medication. Depression: Continue home medication. Tobacco and alcohol use: Will address lifestyle modification education and cessation. Time Spent Managing Pts Care (In Minutes): 55
[2018-12-01] MEDS: ENOXAPARIN 40 MG/0.4 ML SQ SCH (16:08)
[2018-12-01] MEDS: TRAMADOL HCL 50 MG TAB PO PRN (21:49)
[2018-12-02] MEDS: ALBUTEROL 2.5 MG/3 ML NEB SOL NEB PRN ×2 (01:30→07:35)
[2018-12-02] MEDS: NA CHLORIDE 0.9% 1,000 ML IV SCH ×3 (01:42→09:42)
[2018-12-02] MEDS: LEVOTHYROXINE SOD 0.05 MG TABLET PO SCH (06:27)
[2018-12-02] MEDS: VANCOMYCIN/NS 1 gm 1 GM/250 ML BAG IV SCH (06:27)
[2018-12-02 06:39] LABS: Absolute Lymphocytes (CBC) 1.8 K/uL (0.7-4.9); Absolute Monocytes 0.7 K/uL (0.1-1.3); Absolute Neutrophil 3.2 K/uL (1.8-8.0); Basophils % 0.2 % (0-1.3); Eosinophils % 1.5 % (0-4.4); Lymphocytes % 30.7 % (15.3-44.8); MPV 9.4 fL (7.6-11.3); RBC Red Blood Cell Count 3.07 M/uL (3.86-4.86)
[2018-12-02 06:55] LABS: BUN Blood Urea Nitrogen 3 mg/dL (7-18); Bicarbonate 25 mmol/L (21-32); Glucose Level 61 mg/dL (74-106); Magnesium 1.9 mg/dL (1.8-2.4); Potassium 3.3 mmol/L (3.5-5.1); Sodium Level 145 mmol/L (136-145)
[2018-12-02] MEDS ORDERED: POTASSIUM CL SA 10 MEQ TAB PO ONE (08:12)
--- NOTE | 2018-12-02 09:22 | P.DS ---
Admission Date: 11/29/18 Discharge Date: 12/02/18 Primary Care Provider: Dr. Berkowitz Disposition: ROUTINE DISCHARGE Discharge Condition: GOOD Reason for Admission: Pneumonia Consultations: Pulmonary-Dr. Baca Procedures: ECHO: Ejection fraction 61% Left ventricular wall motion normal. Normal 2D echo with Doppler. CT scan: COMPARISON: November 29, 2018 chest x-ray TECHNIQUE: Dynamically enhanced axial 3 mm thick images of the chest were obtained during administration of <100> mL Isovue 370 IV contrast. Coronal and oblique reconstruction images were generated and reviewed. Exam utilizes a protocol for optimal evaluation of pulmonary arterial tree. Maximum intensity projections 3D imaging was utilized All CT scans are performed using dose optimization technique as appropriate and may include automated exposure control or mA/KV adjustment according to patient size. FINDINGS: A pulmonary embolus is not seen. A thoracic aortic aneurysm is not noted. A pleural effusion is not seen. A pericardial effusion is not seen. A 2 centimeter left lower lobe opacity. [id number] lingular and right lower lobe alveolar opacities. Fatty liver IMPRESSION: Negative for a pulmonary embolism. These findings most likely represent a bilateral pneumonia. Follow up CXR: COMPARISON: Chest Single View dated 11/30/2018; Chest Single View dated 2018; CHEST SINGLE VIEW dated 06/06/2015 FINDINGS: Left lung base consolidation with trace pleural fluid appears essentially stable since yesterday's study. The right lung appears grossly clear. The heart is normal in size. No displaced fractures. IMPRESSION: Stable left lung base pneumonia since preceding day's comparative examination Abdominal ultrasound: COMPARISON: March 2017 FINDINGS: Gallbladder size is normal. No gallstones or measurable sludge seen. Gallbladder wall thickening is present up to 7-8 mm. Minimal pericholecystic fluid is seen. Common bile duct is normal at 3 mm with no common duct stone identified. Liver is 16 cm in maximum dimension. No nodularity of the liver capsule. Liver parenchyma is minimally echogenic which is nonspecific. No focal liver lesion identified. Doppler evaluation shows normal velocity and flow direction of the portal vein. Spleen is 11-12 cm with no focal splenic abnormality. The pancreas is normal. No hydronephrosis or suspicious mass in either kidney. Aorta is normal is size. No ascites or bulky lymphadenopathy. No IVC abnormality. IMPRESSION: Gallbladder wall thickening without stones or sludge identifiable. No biliary tree abnormality seen. Gallbladder findings may be secondary to underlying liver disease. Liver size is normal with no focal liver lesion. Medical Problem List: Chest pain, shortness of breath, fever secondary to sepsis related to bilateral multifocal pneumonia Hypothyroidism Depression Tobacco and alcohol use Brief History of Present Illness: 38-year-old female presented to the emergency room with chest pain, shortness of breath and fever. She reports chest pain and shortness of breath starting yesterday. She also reported fever. She had reported a cough about 3 weeks ago. She never really cleared from the cough. Last night she start to notice increased chills and sweats. She felt very tired and weak today. She came to the ER for further evaluation. In the ER patient was evaluated. Initially blood pressure was stable. Then she had some hypotension. She was given IV fluid bolus. Fever and tachycardia was noted. Initial chest x-ray showed left lower lobe pneumonia. CT chest showed no pulmonary embolism but multifocal bilateral pneumonia noted white count 11.9, hemoglobin 14. Pro calcitonin elevated at 23.6. Sodium 133, potassium 3.5, BUN of 10, creatinine 1.2 with a GFR 50. Patient was given IV antibiotic therapy. Patient admitted for further treatment. When I saw the patient in ER, she appeared comfortable. Some chills noted. Patient with underlying history of fatty liver-PLATA,hypothyroidism, depression and tobacco use. Hospital Course: Patient presented with chest pain, shortness of breath and fever. Patient also was hypotensive. Patient found to have sepsis related to bilateral multifocal pneumonia. Early on UTI was suspected, this was ruled out. Blood cultures negative. Strep test and influenza tests unremarkable. Chest x-ray showed improvement. During the course of her stay patient was given aggressive IV fluids, antibiotic therapy. Patient improved. Patient was seen and evaluated by pulmonology. No further intervention was required. At discharge she does not require any oxygen. Blood pressure is back to baseline. White count within normal range. Pro calcitonin shows improvement. At discharge she will continue with Levaquin 750 mg 1 pill once daily for 5 more days. Patient will also be provided Pro air 2 puffs 3 times a day as needed for shortness of breath , Tessalon Perles 100 mg 3 times a day as needed for cough and Mucinex 600 mg twice daily as needed for congestion. Recommended follow up with pulmonology in 1-2 weeks to follow up this hospitalization. Recommend to recheck chest x-ray and CBC in 2-4 weeks to monitor resolution. Recommend to follow up with her PCP in 1 week to follow up this hospitalization. Patient to continue with increased oral intake. May return to work as early as Thursday or after 1 week to fully recover. Patient with tobacco history. Patient will be provided nicotine patch to help with cessation. Cessation education will be provided. Patient with hypothyroidism. Patient may continue with Levoxyl 50 mcg daily. Patient with depression. Patient continue with Celexa 20 mg daily. Patient had low calcium. Recommend to continue with Caltrate plus D twice daily. This can be further addressed by her PCP. Recommend to recheck lab-CBC , CMP in 1-2 weeks to monitor progress. Vital Signs/Physical Exam: Temp Pulse Resp BP Pulse Ox 97.2 F 72 20 107/62 96 12/02/18 08:00 12/02/18 08:00 12/02/18 08:00 12/02/18 08:00 12/02/18 08:00 General: Alert, In no apparent distress, Oriented x3, Cooperative HEENT: Atraumatic Neck: Supple Respiratory: Clear to auscultation bilaterally, Normal air movement Cardiovascular: Normal pulses, Regular rate/rhythm Gastrointestinal: Normal bowel sounds, Soft and benign, Non-distended, No tenderness, No masses, No rebound, No guarding Musculoskeletal: No erythema, No tenderness, No warmth Integumentary: No tenderness/swelling, No erythema, No warmth, No cyanosis Neurological: Normal speech, Normal strength at 5/5 x4 extr, Normal tone, Normal affect Laboratory Data at Discharge: WBC 5.8 K/uL (4.3-10.9) D 12/02/18 05:27 Hgb 11.7 g/dL (12.0-15.0) L 12/02/18 05:27 Hct 33.0 % (36.0-45.0) L 12/02/18 05:27 Plt Count 119 K/uL (152-406) L 12/02/18 05:27 Sodium 145 mmol/L (136-145) 12/02/18 05:27 Potassium 3.3 mmol/L (3.5-5.1) L 12/02/18 05:27 BUN 3 mg/dL (7-18) L 12/02/18 05:27 Creatinine 0.42 mg/dL (0.55-1.3) L 12/02/18 05:27 Glucose 61 mg/dL (74-106) L 12/02/18 05:27 Magnesium 1.9 mg/dL (1.8-2.4) 12/02/18 05:27 Total Bilirubin 1.3 mg/dL (0.2-1.0) H 11/30/18 08:27 AST 51 U/L (15-37) H 11/30/18 08:27 ALT 40 U/L (12-78) 11/30/18 08:27 Alkaline Phosphatase 48 U/L (45-117) 11/30/18 08:27 Home Medications: Levothyroxine Sodium 50 mcg PO DAILY 04/14/17 Citalopram [Celexa*] 20 mg PO DAILY 11/29/18 Albuterol Sulfate [Proair Hfa] 2 puff IH TID PRN #1 hfa.aer.ad 12/02/18 Benzonatate [Tessalon Perle*] 100 mg PO TID PRN #20 cap 12/02/18 Calcium Carbonate/Vitamin D3 [Oscal 500 + Vit D 200 Iu Tab*] 1 tab PO BID #60 tab 12/02/18 Guaifenesin [Mucinex] 600 mg PO BID #10 tab.er.12h 12/02/18 Nicotine [Nicoderm*] 21 mg TD DAILY #30 patch.td24 12/02/18 levoFLOXacin [Levaquin] 750 mg PO DAILY #5 tab 12/02/18 New Medications: Albuterol Sulfate [Proair Hfa] 2 puff IH TID PRN #1 hfa.aer.ad PRN Reason: Shortness Of Breath Benzonatate [Tessalon Perle*] 100 mg PO TID PRN #20 cap PRN Reason: Cough Calcium Carbonate/Vitamin D3 [Oscal 500 + Vit D 200 Iu Tab*] 1 tab PO BID #60 tab Guaifenesin [Mucinex] 600 mg PO BID #10 tab.er.12h levoFLOXacin [Levaquin] 750 mg PO DAILY #5 tab Nicotine [Nicoderm*] 21 mg TD DAILY #30 patch.td24 Patient Discharge Instructions: 1. Recommend to follow up with her PCP in 1 week to follow up this hospitalization. 2. Patient presented with chest pain, shortness of breath and fever. Patient also was hypotensive. Patient found to have sepsis related to bilateral multifocal pneumonia. Early on UTI was suspected, this was ruled out. Blood cultures negative. Strep test and influenza tests unremarkable. Chest x-ray showed improvement. During the course of her stay patient was given aggressive IV fluids, antibiotic therapy. Patient improved. Patient was seen and evaluated by pulmonology. No further intervention was required. At discharge she does not require any oxygen. Blood pressure is back to baseline. White count within normal range. Pro calcitonin shows improvement. At discharge she will continue with Levaquin 750 mg 1 pill once daily for 5 more days. Patient will also be provided Pro air 2 puffs 3 times a day as needed for shortness of breath, Tessalon Perles 100 mg 3 times a day as needed for cough and Mucinex 600 mg twice daily as needed for congestion. Recommended follow up with pulmonology in 1-2 weeks to follow up this hospitalization. Recommend to recheck chest x-ray and CBC in 2-4 weeks to monitor resolution. Recommend to follow up with her PCP in 1 week to follow up this hospitalization. Patient to continue with increased oral intake. May return to work as early as Thursday or after 1 week to fully recover. 3. Patient with tobacco history. Patient will be provided nicotine patch to help with cessation. Cessation education will be provided. 4. Patient with hypothyroidism. Patient may continue with Levoxyl 50 mcg daily. 5. Patient with depression. Patient continue with Celexa 20 mg daily. 6. Patient had low calcium. Recommend to continue with Caltrate plus D twice daily. This can be further addressed by her PCP. Recommend to recheck lab-CBC, CMP in 1-2 weeks to monitor progress. Diet: AHA Activity: Ad geni Time spent managing pt's care (in minutes): 55
[2018-12-02] MEDS: FAMOTIDINE 20 MG TAB PO SCH (10:06)
[2018-12-02] MEDS: FOLIC ACID 1 MG TABLET PO SCH (10:06)
[2018-12-02] MEDS: CITALOPRAM 10 MG TABLET PO SCH (10:06)
[2018-12-02] MEDS: GUAIFENESIN 600 MG SA TAB PO SCH (10:06)
[2018-12-02] MEDS: CALCIUM CARB 500MG/VIT D 200 IU TAB PO SCH (10:07)
[2018-12-02] MEDS: Levofloxacin 750mg IV 750 MG/150 ML BAG IV SCH (10:07)
[2018-12-02] MEDS: NICOTINE 21 MG/PAT TD SCH (10:07)
[2018-12-02] MEDS ORDERED: VANCOMYCIN 1.25 GM in NA CHLORIDE 0.9% 250 ML IVPB SCH (13:00)
== END 2018-12-02 13:02 | disposition home or self-care (01) | DRG 871 ==
LOC: ER 10:14 → ERHOLD 14:44 → 4TH 17:05
PROVIDERS: ADMIT Family Medicine; ATTEND Family Medicine
DX: A41.9 Sepsis, unspecified organism (principal); J18.1 Lobar pneumonia, unspecified organism; F17.210 Nicotine dependence, cigarettes, uncomplicated; E03.9 Hypothyroidism, unspecified; F32.9 Major depressive disorder, single episode, unspecified; Z72.89 Other problems related to lifestyle; K76.0 Fatty (change of) liver, not elsewhere classified; K75.81 Nonalcoholic steatohepatitis (NASH); Z90.3 Acquired absence of stomach [part of]; Z88.0 Allergy status to penicillin
CPT/HCPCS: 36415; 71045; 71046; 71275; 76700; 80048; 80076; 80202; 81003; 81015; 82330; 83605; 83735; 83880; 84145; 84484; 85025; 85379; 87040; 87070; 87081; 87086; 87088; 87804; 93005; 93306; 94640; 94760; 96361; 96365; 96367; 99285; J1650; J3370; J3475; J7030; Q9967

== ENCOUNTER 2019-03-24 12:18 | Emergency (ER) | payer SELFPAY ==
[2019-03-24] MEDS ORDERED: MORPHINE 4 MG/ML SYR ONE ×2 (12:50→15:21)
[2019-03-24] MEDS ORDERED: ONDANSETRON 4 MG/2 ML VIAL ONE (12:51)
[2019-03-24] MEDS ORDERED: NA CHLORIDE 0.9% 1,000 ML ONE ×3 (12:51→16:08)
[2019-03-24 13:01] LABS: Absolute Lymphocytes (CBC) 0.9 K/uL (0.7-4.9); Basophils % 0.3 % (0-1.3); Hematocrit 48.8 % (36.0-45.0); Lymphocytes % 15.4 % (15.3-44.8); MPV 8.6 fL (7.6-11.3); RBC Red Blood Cell Count 4.51 M/uL (3.86-4.86)
[2019-03-24 13:11] LABS: Protime INR 1.04
[2019-03-24 13:24] LABS: ALT/SGPT 110 U/L (12-78); AST/SGOT 261 U/L (15-37); Albumin 3.4 g/dL (3.4-5.0); Alkaline Phosphatase 195 U/L (45-117); BUN Blood Urea Nitrogen 3 mg/dL (7-18); Bicarbonate 25 mmol/L (21-32); Bilirubin Direct 0.5 mg/dL (0-0.2); Glucose Level 108 mg/dL (74-106); Magnesium 1.8 mg/dL (1.8-2.4); NT PRO-BNP 49 pg/mL (<125); Protein, Total 8.9 g/dL (6.4-8.2); Sodium Level 136 mmol/L (136-145); Troponin (Emerg Dept Use Only) < 0.02 ng/mL (0.0-0.045)
[2019-03-24 13:30] LABS: Urine Blood 1+ (NEG); Urine Glucose NEGATIVE (NEG); Urine Protein 2+ (NEG)
--- NOTE | 2019-03-24 13:37 | RAD REPORT ---
EXAM DESCRIPTION: Dejuan Single View03/24/2019 1:17 pm CLINICAL HISTORY: Chest pain COMPARISON: November 2018 FINDINGS: The lungs appear clear of acute infiltrate. The heart is normal size IMPRESSION: No acute abnormalities displayed
[2019-03-24 13:38] LABS: Blood Morphology Comment NOTED (NOT SEEN); Macrocytosis 1+; Platelet Estimate ADEQ; Urine White Blood Cell Casts OK
[2019-03-24 13:42] LABS: Urine Bacteria >50 /HPF (<20); Urine Culture Reflex Order REFLEXED
--- NOTE | 2019-03-24 14:31 | RAD REPORT ---
EXAM DESCRIPTION: CT - Abdomen Pelvis W Contrast - 03/24/2019 2:13 pm CLINICAL HISTORY: Abdominal pain with vomiting COMPARISON: 2016 TECHNIQUE: Computed axial tomography of the abdomen pelvis was obtained. 100 cc Isovue-300 was admin istered intravenously. Oral contrast was not requested which limits evaluation of bowel. All CT scans are performed using dose optimization technique as appropriate and may include automated exposure control or mA/KV adjustment according to patient size. FINDINGS: Fatty liver. Postsurgical changes involve the stomach. Spleen, pancreas, adrenal and kidneys appear unremarkable. There is no evidence of diverticulitis. Small appendicolith is present. The appendix is normal caliber. No stranding within the adjacent fat IMPRESSION: Small appendicolith. Appendix is normal caliber without stranding in the adjacent fat. Fatty liver
--- NOTE | 2019-03-24 15:18 | ER ---
Nurse's Notes [facility] Name: Serina Coello Age: 38 yrs Sex: Female : 1980 Arrival Date: 03/24/2019 Time: 12:19 Bed 25 Private MD: Diagnosis: Chest pain, unspecified;Urinary tract infection, site not specified;Vomiting;Unspecified abdominal pain Presentation: 03/24 12:31 Presenting complaint: Patient states: she's having chest pain and shortness of breath ca1 for about a week, N\T\V for about 3 months. Pt had a gastric sleeve over a year ago and lost 90 lbs post procedure. Transition of care: patient was not received from another setting of care. Onset of symptoms was March 24, 2019. Risk Assessment: Do you want to hurt yourself or someone else? Patient reports no desire to harm self or others. Initial Sepsis Screen: Does the patient meet any 2 criteria? Yes Does the patient have a suspected source of infection? No. Patient's initial sepsis screen is negative. Care prior to arrival: None. 12:31 Method Of Arrival: Wheelchair ca1 12:31 Acuity: PAYAL 3 ca1 Triage Assessment: 12:35 General: Appears in no apparent distress. comfortable, Behavior is calm, cooperative, ca1 appropriate for age. Pain: Complains of pain in chest Pain does not radiate. Pain currently is 6 out of 10 on a pain scale. Quality of pain is described as tightness Pain began 1 day ago. Cardiovascular: Heart tones S1 S2 present Capillary refill < 3 seconds Patient's skin is warm and dry. Pulses Rhythm is sinus rhythm. 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 - Social history:: Smoking status: Patient uses tobacco products, smokes one pack cigarettes per day. - Ebola Screening: : Patient negative for fever greater than or equal to 101.5 degrees Fahrenheit, and additional compatible Ebola Virus Disease symptoms Patient denies exposure to infectious person Patient denies travel to an Ebola-affected area in the 21 days before illness onset No symptoms or risks identified at this time. Screenin:40 Abuse screen: Denies injuries from another. Nutritional screening: No deficits noted. ca1 Tuberculosis screening: No symptoms or risk factors identified. Fall Risk IV access (20 points). Assessment: 12:40 General: Appears in no apparent distress. uncomfortable, Behavior is calm, cooperative, ca1 appropriate for age. Pain: Complains of pain in chest Pain does not radiate. Pain currently is 6 out of 10 on a pain scale. Quality of pain is described as tightness Pain began 1 day ago. 12:40 Neuro: Level of Consciousness is awake, alert, obeys commands, Oriented to person, ca1 place, time, situation. Neuro: Reports dizziness, since this morning. Cardiovascular: Cardiovascular: Heart tones S1 S2 present Capillary refill < 3 seconds Patient's skin is warm and dry. Rhythm is sinus rhythm. 12:40 Respiratory: Reports shortness of breath Airway is patent Respiratory effort is even, ca1 unlabored, Respiratory pattern is regular, symmetrical, Breath sounds are clear bilaterally. GI: Bowel sounds present X 4 quads. Abdomen is tender to palpation X 4 quads. Reports nausea, vomiting, since 3 months ago. : No deficits noted. No signs and/or symptoms were reported regarding the genitourinary system. EENT: No deficits noted. No signs and/or symptoms were reported regarding the EENT system. Derm: Skin is intact, is healthy with good turgor, Skin is pink, warm \T\ dry. Musculoskeletal: Circulation, motion, and sensation intact. Capillary refill < 3 seconds, Range of motion: intact in all extremities. 13:41 Reassessment: Pt reports dizziness, unable to perform orthostatics. Notified provider. ca1 13:58 Reassessment: Patient appears in no apparent distress at this time. Patient and/or ca1 family updated on plan of care and expected duration. Pain level reassessed. Patient is alert, oriented x 3, equal unlabored respirations, skin warm/dry/pink. 14:50 Reassessment: Patient appears in no apparent distress at this time. Patient and/or ca1 family updated on plan of care and expected duration. Pain level reassessed. Patient is alert, oriented x 3, equal unlabored respirations, skin warm/dry/pink. 15:22 Reassessment: Patient appears in no apparent distress at this time. Patient is alert, ca1 oriented x 3, equal unlabored respirations, skin warm/dry/pink. 15:27 Reassessment: Pt vomited after drinking water. Notified provider. Order given. ca1 16:24 Reassessment: Patient appears in no apparent distress at this time. Patient is alert, ca1 oriented x 3, equal unlabored respirations, skin warm/dry/pink. IVF added and infusing. Will discharge once IVF is completed. 17:31 Reassessment: Patient appears in no apparent distress at this time. Patient is alert, ca1 oriented x 3, equal unlabored respirations, skin warm/dry/pink. Pt able to tolerate juice and turkey sandwich Patient states feeling better. Vital Signs: 12:35 BP 116 / 94; Pulse 98; Resp 19; Temp 97.7(TE); Pulse Ox 100% on R/A; Weight 54.43 kg ca1 (R); Height 5 ft. 5 in. (165.10 cm) (R); Pain 6/10; 13:48 BP 124 / 83 Supine; Pulse 77; lt1 13:48 BP 116 / 83 Sitting; Pulse 72; Resp 15; Temp 97.9(O); Pulse Ox 100% ; lt1 14:50 BP 122 / 95; Pulse 80; Resp 15 S; Pulse Ox 100% on R/A; ca1 15:30 BP 125 / 81; Pulse 76; Resp 18 S; Temp 98(TE); Pulse Ox 100% on R/A; ca1 16:24 BP 118 / 92; Pulse 86; Resp 20; Pulse Ox 100% on R/A; ca1 17:31 BP 131 / 90; Pulse 67; Resp 17 S; Temp 97.9(TE); Pulse Ox 100% on R/A; ca1 12:35 Body Mass Index 19.97 (54.43 kg, 165.10 cm) ca1 ED Course: 12:19 Patient arrived in ED. as 12:20 Juan Lowe NP is PHCP. pm1 12:20 Dennis Thao MD is Attending Physician. pm1 12:25 Marcela Salgado, ANDREY is Primary Nurse. ca1 12:34 Triage completed. ca1 12:35 Arm band placed on right wrist. EKG completed in triage. Results shown to MD. ca1 12:40 Patient has correct armband on for positive identification. Placed in gown. Bed in low ca1 position. Call light in reach. Side rails up X2. monitoring coordinator on. Pulse ox on. NIBP on. Warm blanket given. 12:44 EKG done, by electronics technician apprentice. reviewed by Juan Lowe NP. tc 12:46 No provider procedures requiring assistance completed. Inserted saline lock: 20 gauge ca1 in left antecubital area, using aseptic technique. Blood collected. Patient maintains SpO2 saturation greater than 95% on room air. 13:21 Urine Microscopic Only Sent. lt1 13:23 XRAY Chest (1 view) In Process Unspecified. EDMS 14:17 CT Abd/Pelvis - IV Contrast Only In Process Unspecified. EDMS 17:30 IV discontinued, intact, bleeding controlled, No redness/swelling at site. Pressure ca1 dressing applied. Administered Medications: 12:47 Drug: NS 0.9% 1000 ml Route: IV; Rate: 1000 ml; Site: left antecubital; ca1 14:45 Follow up: Response: No adverse reaction; IV Status: Completed infusion ca1 12:50 Drug: morphine 4 mg {Note: RASS - 0.} Route: IVP; Site: left antecubital; ca1 14:00 Follow up: Response: No adverse reaction; Pain is decreased; RASS: Alert and Calm (0) ca1 12:52 Drug: Zofran 4 mg Route: IVP; Site: left antecubital; ca1 13:50 Follow up: Response: No adverse reaction; Nausea is decreased ca1 14:52 Drug: NS 0.9% 1000 ml Route: IV; Rate: 1000 ml; Site: left antecubital; ca1 16:24 Follow up: IV Status: Completed infusion; IV Intake: 1000ml ca1 15:21 Drug: morphine 4 mg {Note: RASS - 0.} Route: IVP; Site: left antecubital; ca1 15:46 Follow up: Response: No adverse reaction; Pain is decreased; RASS: Alert and Calm (0) ca1 15:27 Drug: Phenergan 12.5 mg Route: IVP; Site: left antecubital; ca1 15:46 Follow up: Response: No adverse reaction; Nausea is decreased ca1 16:12 Drug: NS 0.9% 1000 ml Route: IV; Rate: 1000 ml; Site: left antecubital; wh 17:31 Follow up: IV Status: Completed infusion; IV Intake: 1000ml ca1 Intake: 16:24 IV: 1000ml; Total: 1000ml. ca1 17:31 IV: 1000ml; Total: 2000ml. ca1 Outcome: 15:17 Discharge ordered by . pm1 17:30 Discharged to home ambulatory, with family. ca1 17:30 Condition: stable 17:30 Discharge instructions given to patient, Instructed on discharge instructions, follow up and referral plans. medication usage, Demonstrated understanding of instructions, follow-up care, medications, Prescriptions given X 4. 17:33 Patient left the ED. ca1 Addendum: 03/28/2019 17:06 Addendum: Culture Results: Positive urine culture. Bacteria is resistant to, has s s intermediate sensitivity, or is not tested against prescribed antibiotics. Report given to JASMINE for further evaluation and then to cupola melting supervisor for follow up with patient. Phone call Attempt #1 Recommendation by TALYA Church to call in Macrobid 100 mg PO BID x 7 days if symptoms have not improved. Patient reports that symptoms have improved greatly and she plans to see her PCP in 3 days. Signatures: Dispatcher [employer] EDMS Maeve Bustamante Shelby, ANDREY RN ss Tiffanie Galloway, staff air tactical officer EKG Ttc Juan Lowe, MOISES DIRECTOR MARKET INTELLIGENCE pm1 Laura Sena Marcela Salgado RN RN ca1 Kailey Rocha lt1 Corrections: (The following items were deleted from the chart) 03/24 12:38 12:31 Presenting complaint: Patient states: she's having chest pain and shortness of ca1 breath for about a week, N\T\V for about 3 months. Pt had a gastric sleeve over a week ago and lost 90 lbs post procedure ca1 13:47 12:40 Pain: Complains of pain in chest Pain does not radiate. Pain ca1 ca1
--- NOTE | 2019-03-24 15:18 | EDPHYS ---
Physician Documentation [facility] Name: Serina Coello Age: 38 yrs Sex: Female : 1980 Arrival Date: 03/24/2019 Time: 12:19 Bed 25 Private MD: ED Physician Dennis Thao HPI: 03/24 13:08 This 38 yrs old Female presents to ER via Wheelchair with complaints of Chest pm1 Pain, Shortness Of Breath. 13:08 The patient presents to the emergency department with nausea, vomiting, chest pain and pm1 shortness of breath. Onset: The symptoms/episode began/occurred chest pain and shortness of breath for 1 week. Nausea and vomiting for the past 3 months. Possible causes: unknown. The symptoms are aggravated by nothing. The symptoms are alleviated by nothing. Associated signs and symptoms: Pertinent positives: abdominal pain, dysuria, Pertinent negatives: constipation, diarrhea, fever. Severity of symptoms: in the emergency department the symptoms are worse. The patient has not recently seen a physician. Patient with gastric sleeve in November 2017. 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 - Social history:: Smoking status: Patient uses tobacco products, smokes one pack cigarettes per day. - Ebola Screening: : Patient negative for fever greater than or equal to 101.5 degrees Fahrenheit, and additional compatible Ebola Virus Disease symptoms Patient denies exposure to infectious person Patient denies travel to an Ebola-affected area in the 21 days before illness onset No symptoms or risks identified at this time. ROS: 13:08 Constitutional: Negative for fever, chills, and weight loss, Eyes: Negative for injury, pm1 pain, redness, and discharge, ENT: Negative for injury, pain, and discharge, Neck: Negative for injury, pain, and swelling. 13:08 Back: Negative for injury and pain, : Negative for injury, bleeding, discharge, and swelling, MS/Extremity: Negative for injury and deformity, Skin: Negative for injury, rash, and discoloration, Neuro: Negative for headache, weakness, numbness, tingling, and seizure. 13:08 Cardiovascular: Positive for chest pain, Negative for edema, orthopnea, palpitations. 13:08 Respiratory: Positive for shortness of breath, Negative for cough, sputum production, wheezing. 13:08 Abdomen/GI: Positive for abdominal pain, nausea and vomiting, Negative for diarrhea, constipation. Exam: 13:08 Constitutional: This is a well developed, well nourished patient who is awake, alert, pm1 and in no acute distress. Head/Face: Normocephalic, atraumatic. Eyes: Pupils equal round and reactive to light, extra-ocular motions intact. Lids and lashes normal. Conjunctiva and sclera are non-icteric and not injected. Cornea within normal limits. Periorbital areas with no swelling, redness, or edema. ENT: Nares patent. No nasal discharge, no septal abnormalities noted. Tympanic membranes are normal and external auditory canals are clear. Oropharynx with no redness, swelling, or masses, exudates, or evidence of obstruction, uvula midline. Mucous membranes moist. Neck: Trachea midline, no thyromegaly or masses palpated, and no cervical lymphadenopathy. Supple, full range of motion without nuchal rigidity, or vertebral point tenderness. No Meningismus. Chest/axilla: Normal chest wall appearance and motion. Nontender with no deformity. No lesions are appreciated. Cardiovascular: Regular rate and rhythm with a normal S1 and S2. No gallops, murmurs, or rubs. Normal PMI, no JVD. No pulse deficits. Respiratory: Lungs have equal breath sounds bilaterally, clear to auscultation and percussion. No rales, rhonchi or wheezes noted. No increased work of breathing, no retractions or nasal flaring. 13:08 Back: No spinal tenderness. No costovertebral tenderness. Full range of motion. Skin: Warm, dry with normal turgor. Normal color with no rashes, no lesions, and no evidence of cellulitis. MS/ Extremity: Pulses equal, no cyanosis. Neurovascular intact. Full, normal range of motion. 13:08 Abdomen/GI: Inspection: abdomen appears normal, Bowel sounds: normal, Palpation: abdomen is soft and non-tender, in all quadrants, mass, is not appreciated, rebound tenderness, is not appreciated. 13:08 Neuro: Orientation: is normal, Motor: is normal, moves all fours. Vital Signs: 12:35 BP 116 / 94; Pulse 98; Resp 19; Temp 97.7(TE); Pulse Ox 100% on R/A; Weight 54.43 kg ca1 (R); Height 5 ft. 5 in. (165.10 cm) (R); Pain 6/10; 13:48 BP 124 / 83 Supine; Pulse 77; lt1 13:48 BP 116 / 83 Sitting; Pulse 72; Resp 15; Temp 97.9(O); Pulse Ox 100% ; lt1 14:50 BP 122 / 95; Pulse 80; Resp 15 S; Pulse Ox 100% on R/A; ca1 15:30 BP 125 / 81; Pulse 76; Resp 18 S; Temp 98(TE); Pulse Ox 100% on R/A; ca1 16:24 BP 118 / 92; Pulse 86; Resp 20; Pulse Ox 100% on R/A; ca1 17:31 BP 131 / 90; Pulse 67; Resp 17 S; Temp 97.9(TE); Pulse Ox 100% on R/A; ca1 12:35 Body Mass Index 19.97 (54.43 kg, 165.10 cm) ca1 MDM: 12:23 Patient medically screened. pm1 15:10 Data reviewed: vital signs. Data interpreted: Pulse oximetry: on room air is 100 %. pm1 Interpretation: normal. 15:11 ED course: Patient without abdominal tenderness on re-examination. No right lower pm1 quadrant tenderness. Patient educated on presence of appendicolith without any signs of appendicitis. Educated on return precautions for abdominal pain. 15:16 Counseling: I had a detailed discussion with the patient and/or guardian regarding: the pm1 historical points, exam findings, and any diagnostic results supporting the discharge/admit diagnosis, lab results, radiology results, the need for outpatient follow up, to return to the emergency department if symptoms worsen or persist or if there are any questions or concerns that arise at home. 15:16 Special discussion: Based on the patient's Hx, exam, and Dx evaluation, there is no pm1 indication for emergent surgery or inpatient Tx. It is understood by the patient/guardian that if the Sx's persist or worsen they need to return immediately for re-evaluation. 17:30 ED course: Patient able to eat sandwich and drink juice per RN without difficulty. pm1 03/24 12:29 Order name: Basic Metabolic Panel; Complete Time: 13:45 pm1 03/24 12:29 Order name: CBC with Diff; Complete Time: 13:45 pm1 03/24 12:29 Order name: LFT's; Complete Time: 13:45 pm1 03/24 12:29 Order name: Magnesium; Complete Time: 13:45 pm1 03/24 12:29 Order name: NT PRO-BNP; Complete Time: 13:45 pm1 03/24 12:29 Order name: PT-INR; Complete Time: 13:45 pm1 03/24 12:29 Order name: Troponin (emerg Dept Use Only); Complete Time: 13:45 pm1 03/24 12:29 Order name: D-Dimer; Complete Time: 13:45 pm1 03/24 13:06 Order name: Urine Microscopic Only; Complete Time: 13:45 pm1 03/24 13:23 Order name: Urine Dipstick--Ancillary (enter results); Complete Time: 13:45 bd 03/24 13:23 Order name: Urine --Ancillary (enter results); Complete Time: 13:45 bd 03/24 13:37 Order name: CBC Smear Scan; Complete Time: 13:45 EDMS 03/24 13:47 Order name: Urine Culture EDMS 03/24 13:47 Order name: Lipase; Complete Time: 14:23 pm1 03/24 12:29 Order name: XRAY Chest (1 view); Complete Time: 14:06 pm1 03/24 12:29 Order name: EKG; Complete Time: 12:31 pm1 03/24 12:29 Order name: Cardiac monitoring; Complete Time: 12:40 pm1 03/24 12:29 Order name: EKG - Nurse/Tech; Complete Time: 12:40 pm1 03/24 12:29 Order name: IV Saline Lock; Complete Time: 12:50 pm1 03/24 12:29 Order name: Labs collected and sent; Complete Time: 12:50 pm1 03/24 12:29 Order name: O2 Per Protocol; Complete Time: 12:40 pm03/24 12:29 Order name: O2 Sat Monitoring; Complete Time: 12:40 pm03/24 13:46 Order name: CT Abd/Pelvis - IV Contrast Only; Complete Time: 14:45 pm1 03/24 12:39 Order name: Orthostatic Blood Pressure; Complete Time: 13:53 pm1 03/24 13:06 Order name: Urine Dipstick-Ancillary (obtain specimen); Complete Time: 13:21 pm1 03/24 13:07 Order name: Urine Test (obtain specimen); Complete Time: 13:20 pm1 Administered Medications: 12:47 Drug: NS 0.9% 1000 ml Route: IV; Rate: 1000 ml; Site: left antecubital; ca1 14:45 Follow up: Response: No adverse reaction; IV Status: Completed infusion ca1 12:50 Drug: morphine 4 mg {Note: RASS - 0.} Route: IVP; Site: left antecubital; ca1 14:00 Follow up: Response: No adverse reaction; Pain is decreased; RASS: Alert and Calm (0) ca1 12:52 Drug: Zofran 4 mg Route: IVP; Site: left antecubital; ca1 13:50 Follow up: Response: No adverse reaction; Nausea is decreased ca1 14:52 Drug: NS 0.9% 1000 ml Route: IV; Rate: 1000 ml; Site: left antecubital; ca1 16:24 Follow up: IV Status: Completed infusion; IV Intake: 1000ml ca1 15:21 Drug: morphine 4 mg {Note: RASS - 0.} Route: IVP; Site: left antecubital; ca1 15:46 Follow up: Response: No adverse reaction; Pain is decreased; RASS: Alert and Calm (0) ca1 15:27 Drug: Phenergan 12.5 mg Route: IVP; Site: left antecubital; ca1 15:46 Follow up: Response: No adverse reaction; Nausea is decreased ca1 16:12 Drug: NS 0.9% 1000 ml Route: IV; Rate: 1000 ml; Site: left antecubital; wh 17:31 Follow up: IV Status: Completed infusion; IV Intake: 1000ml ca1 Disposition: 18:42 Co-signature as Attending Physician, Dennis Thao MD. rn Disposition: 03/24/19 15:17 Discharged to Home. Impression: Chest pain, unspecified, Urinary tract infection, site not specified, Vomiting, Unspecified abdominal pain. - Condition is Stable. - Discharge Instructions: Abdominal Pain, Adult, Nonspecific Chest Pain, Urinary Tract Infection, Adult, Vomiting, Adult. - Prescriptions for Zofran 4 mg Oral Tablet - take 1 tablet by ORAL route every 12 hours As needed; 20 tablet. Tylenol- Codeine #3 300-30 mg Oral Tablet - take 2 tablets by ORAL route every 6 hours As needed; 20 tablet. Bactrim DS 800- 160 mg Oral Tablet - take 1 tablet by ORAL route every 12 hours for 10 days; 20 tablet. promethazine 25 mg Oral Tablet - take 1 tablet by ORAL route every 6 hours As needed; 20 tablet. - Medication Reconciliation Form, Thank You Letter, Antibiotic Education, Prescription Opioid Use form. - Follow up: Emergency Department; When: As needed; Reason: Worsening of condition. Follow up: Private Physician; When: 2 - 3 days; Reason: Recheck today's complaints, Continuance of care, Re-evaluation by your physician. - Problem is new. - Symptoms have improved. Signatures: Dispatcher [employer] EDMS Dennis Thao MD MD rn Marinas, Patrick, MOIS[employer]IVEST[employer] COUNTER pm1 Laura Sena Cheryl RN RN ca1 Corrections: (The following items were deleted from the chart) 15:17 15:17 03/24/2019 15:17 Discharged to Home. Impression: Chest pain, unspecified; Urinary pm1 tract infection, site not specified; Vomiting. Condition is Stable. Forms are Medication Reconciliation Form, Thank You Letter, Antibiotic Education, Prescription Opioid Use. Follow up: Emergency Department; When: As needed; Reason: Worsening of condition. Follow up: Private Physician; When: 2 - 3 days; Reason: Recheck today's complaints, Continuance of care, Re-evaluation by your physician. Problem is new. Symptoms have improved. pm1 17:33 15:17 03/24/2019 15:17 Discharged to Home. Impression: Chest pain, unspecified; Urinary ca1 tract infection, site not specified; Vomiting; Unspecified abdominal pain. Condition is Stable. Forms are Medication Reconciliation Form, Thank You Letter, Antibiotic Education, Prescription Opioid Use. Follow up: Emergency Department; When: As needed; Reason: Worsening of condition. Follow up: Private Physician; When: 2 - 3 days; Reason: Recheck today's complaints, Continuance of care, Re-evaluation by your physician. Problem is new. Symptoms have improved. pm1
[2019-03-24] MEDS ORDERED: PROMETHAZINE 25 MG/ML VIAL ONE (15:26)
--- NOTE | 2019-03-24 16:56 | EKG ---
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
== END 2019-03-24 17:33 | disposition home or self-care (01) ==
LOC: ER 12:18
DX: N39.0 Urinary tract infection, site not specified (principal); R11.10 Vomiting, unspecified; R10.9 Unspecified abdominal pain; F17.210 Nicotine dependence, cigarettes, uncomplicated; Z88.0 Allergy status to penicillin; Z98.82 Breast implant status
CPT/HCPCS: 36415; 71045; 74177; 80048; 80076; 81003; 81015; 81025; 83690; 83735; 83880; 84484; 85025; 85379; 85610; 87077; 87086; 87088; 87186; 93005; 96361; 96374; 96375; 99285; J2405; J2550; J7030; Q9967

== ENCOUNTER 2019-09-19 13:26 | Emergency (ER) | payer SELFPAY ==
[2019-09-19] MEDS ORDERED: MORPHINE 2 MG/ML SYR ONE ×2 (16:05→16:22)
[2019-09-19] MEDS ORDERED: FAMOTIDINE 20 MG/2 ML VIAL IV ONE (16:06)
[2019-09-19] MEDS ORDERED: ONDANSETRON 4 MG/2 ML VIAL ONE ×3 (16:06→19:15)
[2019-09-19 16:13] LABS: Urine Blood NEGATIVE (NEG); Urine Glucose NEGATIVE (NEG); Urine Protein NEGATIVE (NEG); Urine Specific Gravity 1.015 (1.005-1.030); Urine pH 6.5 (5.0-7.0)
--- NOTE | 2019-09-19 16:15 | RAD REPORT ---
EXAM DESCRIPTION: RAD - Chest Single View - 09/19/2019 3:57 pm CLINICAL HISTORY: PAIN COMPARISON: Chest Single View dated 03/24/2019 TECHNIQUE: AP portable chest image was obtained 09/19/2019 3:57 pm . FINDINGS: Lungs are clear. Heart and vasculature are normal. No measurable pleural effusion and no p neumothorax. No acute bony abnormality seen. No acute aortic findings suspected. IMPRESSION: No acute cardiopulmonary process. No significant change from comparison.
[2019-09-19 16:16] LABS: Urine Bacteria >50 /HPF (<20); Urine Culture Reflex Order NOT NEEDED; Urine RBC <5 /HPF (NONE SEEN)
[2019-09-19 16:18] LABS: Absolute Lymphocytes (CBC) 1.1 K/uL (0.7-4.9); Basophils % 0.2 % (0-1.3); Hematocrit 40.8 % (36.0-45.0); Lymphocytes % 22.4 % (15.3-44.8); MPV 7.9 fL (7.6-11.3); RBC Red Blood Cell Count 3.82 M/uL (3.86-4.86)
[2019-09-19 16:19] LABS: Protime INR 1.11
[2019-09-19 16:34] LABS: ALT/SGPT 55 U/L (12-78); AST/SGOT 121 U/L (15-37); Albumin 3.2 g/dL (3.4-5.0); Alkaline Phosphatase 105 U/L (45-117); BUN Blood Urea Nitrogen 4 mg/dL (7-18); Bicarbonate 28 mmol/L (21-32); Bilirubin Direct 0.3 mg/dL (0-0.2); Bilirubin Total 0.8 mg/dL (0.2-1.0); Glucose Level 95 mg/dL (74-106); Lipase 151 U/L (73-393); Magnesium 1.8 mg/dL (1.8-2.4); NT PRO-BNP 37 pg/mL (<125); Potassium 3.9 mmol/L (3.5-5.1); Protein, Total 8.6 g/dL (6.4-8.2); Sodium Level 135 mmol/L (136-145); Troponin (Emerg Dept Use Only) < 0.02 ng/mL (0.0-0.045)
[2019-09-19] MEDS ORDERED: HYDROMORPHONE HCL 0.5 MG/0.5 ML INJ ONE ×2 (16:55→19:15)
[2019-09-19] MEDS ORDERED: CEFTRIAXONE/SWI 1gm 1 GM/10 ML SYR ONE (16:56)
--- NOTE | 2019-09-19 17:04 | RAD REPORT ---
EXAM DESCRIPTION: US - Abdomen Exam Limited - 09/19/2019 4:47 pm CLINICAL HISTORY: ABD PAIN COMPARISON: Abdomen Pelvis W Contrast dated 03/24/2019 FINDINGS: No gallstones, sludge or other abnormalities within the gallbladder lumen. There is no wal l thickening or pericholecystic fluid. No common duct stone or biliary tree dilatation identified. IMPRESSION: Normal gallbladder and biliary tree ultrasound.
[2019-09-19 17:51] LABS: Platelet Estimate ADEQ; Urine White Blood Cell Casts OK
[2019-09-19 17:52] LABS: Anisocytosis 1+; Blood Morphology Comment NOTED (NOT SEEN); Poikilocytosis 1+
[2019-09-19] MEDS ORDERED: Levofloxacin500mg IV 500 MG/100 ML BAG IV ONE (18:22)
--- NOTE | 2019-09-19 18:28 | RAD REPORT ---
EXAM DESCRIPTION: CT - Head Brain Wo Cont - 09/19/2019 6:07 pm CLINICAL HISTORY: Dizziness;Headache COMPARISON: Abdomen Pelvis W Contrast dated 04/11/2018No comparisons TECHNIQUE: Axial 5 mm thick images of the head were obtained without IV contrast. All CT scans are performed using dose optimization technique as appropriate and may include automated exposure control or mA/KV adjustment according to patient size. FINDINGS: No intracranial hemorrhage, mass, edema or shift of mid-line structures. No acute infarcti on changes seen. No abnormal extra-axial fluid collections. Ventricles are normal. Mastoid air cells and visualized portions of the paranasal sinuses are clear. No acute bony findings. IMPRESSION: Negative non-contrast CT head examination.
--- NOTE | 2019-09-19 18:31 | RAD REPORT ---
EXAM DESCRIPTION: CT - Abdomen Pelvis W Contrast - 09/19/2019 6:08 pm CLINICAL HISTORY: ABD PAIN COMPARISON: Abdomen Pelvis W Contrast dated 03/24/2019 TECHNIQUE: Biphasic, helical CT imaging of the abdomen and pelvis was performed following 100 ml non -ionic IV contrast. Oral contrast was given. All CT scans are performed using dose optimization technique as appropriate and may include automated exposure control or mA/KV adjustment according to patient size. FINDINGS: No suspicious findings in the lung bases. The liver, spleen, and pancreas show no suspicious findings. Liver shows fatty infiltration. No gallb ladder or biliary tree abnormality. Symmetric renal function is seen with no hydronephrosis or suspicious renal mass. No pyelonephritis o r acute parenchymal process. No bladder abnormalities. No adrenal abnormalities. Uterus is lobulated likely due to a prominent fundal fibroid. This is similar to comparison. A 2 centimeter left ovarian cyst is present. No suspicious ovarian or adnexal finding. No gastric dilatation or wall thickening. Gastric postsurgical changes are noted. No dilated small ara wel loops. Appendix is upper normal in size. No periappendiceal inflammatory stranding. No free air, free fluid or inflammatory stranding. No hernia, mass or bulky lymphadenopathy. Postsurgical change s are noted to the anterior abdominal wall No suspicious bony findings. IMPRESSION: No obstruction, free air or surgically emergent finding. The appendix is upper normal in size but no periappendiceal inflammatory stranding. No convincing gloria dence for appendicitis at this time. Fatty infiltration of the liver.
--- NOTE | 2019-09-19 19:11 | EDPHYS ---
Physician Documentation [facility] Name: Serina Coello Age: 39 yrs Sex: Female : 1980 Arrival Date: 09/19/2019 Time: 13:29 Bed 23 Private MD: Harjinder Garcia HPI: 09/18 16:17 This 39 yrs old Female presents to ER via Wheelchair with complaints of poly Abdominal Pain, Vision Problem, Dizziness. 16:17 The patient presents with dizziness. Onset: The symptoms/episode began/occurred poly yesterday. 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 - Social history:: Smoking status: Patient reports the use of cigarette tobacco products, smokes two packs cigarettes per day. ROS: 16:17 Constitutional: Negative for fever, chills, and weight loss, Eyes: Negative for injury, poly pain, redness, and discharge, ENT: Negative for injury, pain, and discharge, Neck: Negative for injury, pain, and swelling, Cardiovascular: Negative for chest pain, palpitations, and edema, Respiratory: Negative for shortness of breath, cough, wheezing, and pleuritic chest pain, Back: Negative for injury and pain, : Negative for injury, bleeding, discharge, and swelling, MS/Extremity: Negative for injury and deformity, Skin: Negative for injury, rash, and discoloration, Neuro: Negative for headache, weakness, numbness, tingling, and seizure, Psych: Negative for depression, anxiety, suicide ideation, homicidal ideation, and hallucinations, Allergy/Immunology: Negative for hives, rash, and allergies, Endocrine: Negative for neck swelling, polydipsia, polyuria, polyphagia, and marked weight changes, Hematologic/Lymphatic: Negative for swollen nodes, abnormal bleeding, and unusual bruising. 16:17 Abdomen/GI: Positive for abdominal pain, nausea and vomiting, of the right upper quadrant. Exam: 16:17 Constitutional: This is a well developed, well nourished patient who is awake, alert, poly and in no acute distress. Head/Face: Normocephalic, atraumatic. Eyes: Pupils equal round and reactive to light, extra-ocular motions intact. Lids and lashes normal. Conjunctiva and sclera are non-icteric and not injected. Cornea within normal limits. Periorbital areas with no swelling, redness, or edema. ENT: Nares patent. No nasal discharge, no septal abnormalities noted. Tympanic membranes are normal and external auditory canals are clear. Oropharynx with no redness, swelling, or masses, exudates, or evidence of obstruction, uvula midline. Mucous membranes moist. Neck: Trachea midline, no thyromegaly or masses palpated, and no cervical lymphadenopathy. Supple, full range of motion without nuchal rigidity, or vertebral point tenderness. No Meningismus. Chest/axilla: Normal chest wall appearance and motion. Nontender with no deformity. No lesions are appreciated. Cardiovascular: Regular rate and rhythm with a normal S1 and S2. No gallops, murmurs, or rubs. Normal PMI, no JVD. No pulse deficits. Respiratory: Lungs have equal breath sounds bilaterally, clear to auscultation and percussion. No rales, rhonchi or wheezes noted. No increased work of breathing, no retractions or nasal flaring. Back: No spinal tenderness. No costovertebral tenderness. Full range of motion. Female : Normal external genitalia. Skin: Warm, dry with normal turgor. Normal color with no rashes, no lesions, and no evidence of cellulitis. MS/ Extremity: Pulses equal, no cyanosis. Neurovascular intact. Full, normal range of motion. Neuro: Awake and alert, GCS 15, oriented to person, place, time, and situation. Cranial nerves II-XII grossly intact. Motor strength 5/5 in all extremities. Sensory grossly intact. Cerebellar exam normal. Normal gait. Psych: Awake, alert, with orientation to person, place and time. Behavior, mood, and affect are within normal limits. 16:17 Abdomen/GI: Inspection: abdomen appears normal, Bowel sounds: active, Palpation: moderate abdominal tenderness, in the right upper quadrant, Liver: no appreciated palpable abnormalities, Hernia: not appreciated. Vital Signs: 13:50 BP 131 / 86; Pulse 92; Resp 17 S; Temp 97.5(O); Pulse Ox 100% on R/A; Weight 54.43 kg ca1 (R); Height 5 ft. 5 in. (165.10 cm) (R); 15:41 BP 120 / 84; Pulse 83; Resp 16; Temp 98.8(O); Pulse Ox 99% ; lt1 16:30 BP 131 / 78; Pulse 72; Resp 14; Pulse Ox 100% on R/A; vc 17:30 BP 128 / 88; Pulse 80; Resp 15; Pulse Ox 100% on R/A; vc 19:00 BP 116 / 89; Pulse 84; Resp 11; Pulse Ox 97% on R/A; vc 13:50 Body Mass Index 19.97 (54.43 kg, 165.10 cm) ca1 MDM: 15:40 Patient medically screened. [facility] 16:19 Data reviewed: vital signs, nurses notes, lab test result(s), EKG, radiologic studies, [facility] CT scan, plain films. 09/18 15:41 Order name: Urine Microscopic Only; Complete Time: 16:44 ca1 09/18 15:41 Order name: Urine Culture ca1 09/18 15:44 Order name: Basic Metabolic Panel; Complete Time: 16:44 poly 09/18 15:44 Order name: CBC with Diff; Complete Time: 17:57 poly 09/18 15:44 Order name: LFT's; Complete Time: 16:44 poly 09/18 15:44 Order name: Magnesium; Complete Time: 16:44 poly 09/18 15:44 Order name: NT PRO-BNP; Complete Time: 16:44 poly 09/18 15:44 Order name: PT-INR; Complete Time: 16:44 poly 09/18 15:44 Order name: Troponin (emerg Dept Use Only); Complete Time: 16:44 poly 09/18 15:44 Order name: Lipase; Complete Time: 16:44 poly 09/18 15:54 Order name: Urine Dipstick--Ancillary (enter results); Complete Time: 16:16 bd 09/18 15:54 Order name: Urine --Ancillary (enter results); Complete Time: 16:16 bd 09/18 16:28 Order name: CBC Smear Scan; Complete Time: 17:57 EDMS 09/18 15:40 Order name: Urine Dipstick-Ancillary (obtain specimen); Complete Time: 15:40 [facility] 09/18 15:40 Order name: Urine Test (obtain specimen); Complete Time: 15:40 [facility] 09/18 15:44 Order name: XRAY Chest (1 view); Complete Time: 16:44 [facility] 09/18 15:44 Order name: EKG; Complete Time: 15:44 [facility] 09/18 15:44 Order name: CT Head Brain wo Cont; Complete Time: 18:45 [facility] 09/18 15:44 Order name: CT Abd/Pelvis - PO and IV Contrast; Complete Time: 18:45 [facility] 09/18 16:16 Order name: US Abdomen Limited; Complete Time: 17:57 [facility] 09/18 15:44 Order name: Cardiac monitoring; Complete Time: 16:36 [facility] 09/18 15:44 Order name: EKG - Nurse/Tech; Complete Time: 16:36 [facility] 09/18 15:44 Order name: IV Saline Lock; Complete Time: 16:36 [facility] 09/18 15:44 Order name: Labs collected and sent; Complete Time: 16:36 [facility] 09/18 15:44 Order name: O2 Per Protocol; Complete Time: 16:35 [facility] 09/18 15:44 Order name: O2 Sat Monitoring; Complete Time: 16:35 [facility] Administered Medications: 16:03 Drug: morphine 2 mg Route: IVP; Site: right antecubital; vc 16:03 Drug: Zofran (Ondansetron) 4 mg Route: IVP; Site: right antecubital; vc 18:24 Follow up: Response: No adverse reaction vc 16:05 Drug: Pepcid 20 mg Route: IVP; Site: right antecubital; vc 18:25 Follow up: Response: No adverse reaction vc 16:20 Drug: morphine 2 mg Route: IVP; Site: right antecubital; vc 18:25 Follow up: Response: Pain is decreased vc 17:05 Drug: Dilaudid 0.5 mg Route: IVP; Site: right antecubital; vc 18:24 Follow up: Response: No adverse reaction vc 17:05 Drug: Zofran (Ondansetron) 4 mg Route: IVP; Site: right antecubital; vc 18:02 Follow up: Response: No adverse reaction; Nausea is decreased vc 17:05 Drug: Rocephin 1 grams Route: IV; Rate: per protocol; Site: right antecubital; vc 18:23 Drug: levofloxacin 500 mg Volume: 100 ml; Route: IVPB; Infused Over: 60 mins; Site: vc right antecubital; 19:16 Drug: Dilaudid 0.5 mg Route: IVP; Site: right antecubital; vc 19:16 Follow up: Response: No adverse reaction; Marked relief of symptoms; Medication vc administered at discharge. 21:32 Follow up: Response: No adverse reaction; Medication administered at discharge. vc 19:16 Drug: Zofran (Ondansetron) 4 mg Route: IVP; Site: right antecubital; vc 19:16 Follow up: Response: No adverse reaction; Medication administered at discharge. vc 19:20 Follow up: Response: No adverse reaction; Medication administered at discharge. vc Disposition: 09/19/19 19:10 Discharged to Home. Impression: Abdominal tenderness, Nonalcoholic steatohepatitis (PLATA), Urinary tract infection, site not specified. - Condition is Stable. - Discharge Instructions: Abdominal Pain, Adult, Nausea and Vomiting, Adult, Urinary Tract Infection, Adult, Urinary Tract Infection, Adult, [id number], Abdominal Pain, Adult, [id number]. - Prescriptions for Bentyl 20 mg Oral Tablet - take 1 tablet by ORAL route every 6 hours As needed; 20 tablet. Levaquin 250 mg Oral Tablet - take 1 tablet by ORAL route once daily for 7 days; 7 tablet. Pepcid 20 mg Oral Tablet - take 1 tablet by ORAL route every 12 hours for 10 days; 20 tablet. Zofran 4 mg Oral Tablet - take 1 tablet by ORAL route every 12 hours As needed; 20 tablet. - Medication Reconciliation Form, Thank You Letter, Antibiotic Education, Prescription Opioid Use, Work release form form. - Follow up: Private Physician; When: 2 - 3 days; Reason: Recheck today's complaints, Continuance of care, Re-evaluation by your physician. Follow up: Leonel Palma; When: 2 - 3 days; Reason: Recheck today's complaints, Re-evaluation by your physician. - Problem is new. - Symptoms have improved. Signatures: Dispatcher [employer] EDMS Segundo, Harjinder, MD MD poly Acob, Marcela, RN RN ca1 Calcote, Ann Marie, RN RN vc Corrections: (The following items were deleted from the chart) 19:38 19:10 09/19/2019 19:10 Discharged to Home. Impression: Abdominal tenderness; vc Nonalcoholic steatohepatitis (PLATA); Urinary tract infection, site not specified. Condition is Stable. Discharge Instructions: Abdominal Pain, Adult, Nausea and Vomiting, Adult, Urinary Tract Infection, Adult, Urinary Tract Infection, Adult, [id number], Abdominal Pain, Adult, [id number]. Prescriptions for Bentyl 20 mg Oral Tablet - take 1 tablet by ORAL route every 6 hours As needed; 20 tablet, Levaquin 250 mg Oral Tablet - take 1 tablet by ORAL route once daily for 7 days; 7 tablet, Pepcid 20 mg Oral Tablet - take 1 tablet by ORAL route every 12 hours for 10 days; 20 tablet, Zofran 4 mg Oral Tablet - take 1 tablet by ORAL route every 12 hours As needed; 20 tablet. and Forms are Medication Reconciliation Form, Thank You Letter, Antibiotic Education, Prescription Opioid Use. Follow up: Private Physician; When: 2 - 3 days; Reason: Recheck today's complaints, Continuance of care, Re-evaluation by your physician. Follow up: Leonel Palma; When: 2 - 3 days; Reason: Recheck today's complaints, Re-evaluation by your physician. Problem is new. Symptoms have improved. poly
--- NOTE | 2019-09-19 19:11 | ER ---
Nurse's Notes [facility] Name: Serina Coello Age: 39 yrs Sex: Female : 1980 Arrival Date: 09/19/2019 Time: 13:29 Bed 23 Private MD: Diagnosis: Abdominal tenderness;Nonalcoholic steatohepatitis (PLATA);Urinary tract infection, site not specified Presentation: 09/18 13:50 Chief complaint: Patient states: Abdominal pain on and off for several months now but ca1 today has been worst. Had a gastric sleeve 2 years ago. Reports stones on gall bladder and appendix. This morning started feeling very light headed, shaky, seeing spots, and head feels very heavy. Coronavirus screen: The patient has NOT traveled to [place] in the past 14 days. The patient has NOT had contact with known and/or suspected case of Coronavirus. Ebola Screen: Patient negative for fever greater than or equal to 101.5 degrees Fahrenheit, and additional compatible Ebola Virus Disease symptoms Patient denies exposure to infectious person. Patient denies travel to an Ebola-affected area in the 21 days before illness onset. No symptoms or risks identified at this time. Initial Sepsis Screen: Does the patient meet any 2 criteria? No. Patient's initial sepsis screen is negative. Does the patient have a suspected source of infection? No. Patient's initial sepsis screen is negative. Risk Assessment: Do you want to hurt yourself or someone else? Patient reports no desire to harm self or others. Onset of symptoms was September 19, 2019. 13:50 Method Of Arrival: Wheelchair ca1 13:50 Acuity: PAYAL 3 ca1 Triage Assessment: 13:54 General: Appears in no apparent distress. Behavior is cooperative, anxious. Pain: ca1 Complains of pain in abdomen. GI: Pt is actively vomiting Reports nausea. 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 - Social history:: Smoking status: Patient reports the use of cigarette tobacco products, smokes two packs cigarettes per day. Screenin:30 Abuse screen: Denies threats or abuse. Nutritional screening: No deficits noted. vc Tuberculosis screening: No symptoms or risk factors identified. Fall Risk None identified. Assessment: 15:30 General: Appears in no apparent distress. uncomfortable, ill, Behavior is calm, vc cooperative, appropriate for age. Pain: Complains of pain in right upper quadrant and abdomen Pain currently is 10 out of 10 on a pain scale. Neuro: Level of Consciousness is awake, alert, obeys commands, Oriented to person, place, time, situation, Appropriate for age. Cardiovascular: No deficits noted. Denies chest pain. Cardiovascular: Reports lightheadedness. Respiratory: Airway is patent Respiratory effort is even, unlabored. : No signs and/or symptoms were reported regarding the genitourinary system. EENT: No signs and/or symptoms were reported regarding the EENT system. Derm: Skin temperature is warm. Musculoskeletal: Circulation, motion, and sensation intact. Range of motion: intact in all extremities. 16:30 Reassessment: Patient and/or family updated on plan of care and expected duration. Pain vc level reassessed. Patient is alert, oriented x 3, equal unlabored respirations, skin warm/dry/pink. 17:30 Reassessment: Patient and/or family updated on plan of care and expected duration. Pain vc level reassessed. Patient is alert, oriented x 3, equal unlabored respirations, skin warm/dry/pink. 18:30 Reassessment: Patient and/or family updated on plan of care and expected duration. Pain vc level reassessed. Patient is alert, oriented x 3, equal unlabored respirations, skin warm/dry/pink. Patient states feeling better. 19:17 Reassessment: Patient and/or family updated on plan of care and expected duration. Pain vc level reassessed. Patient is alert, oriented x 3, equal unlabored respirations, skin warm/dry/pink. Patient states feeling better. Patient states symptoms have improved. 19:20 GI: Bowel sounds present X 4 quads. Abd is soft Abdomen is tender to palpation X 4 vc quads. Vital Signs: 13:50 BP 131 / 86; Pulse 92; Resp 17 S; Temp 97.5(O); Pulse Ox 100% on R/A; Weight 54.43 kg ca1 (R); Height 5 ft. 5 in. (165.10 cm) (R); 15:41 BP 120 / 84; Pulse 83; Resp 16; Temp 98.8(O); Pulse Ox 99% ; lt1 16:30 BP 131 / 78; Pulse 72; Resp 14; Pulse Ox 100% on R/A; vc 17:30 BP 128 / 88; Pulse 80; Resp 15; Pulse Ox 100% on R/A; vc 19:00 BP 116 / 89; Pulse 84; Resp 11; Pulse Ox 97% on R/A; vc 13:50 Body Mass Index 19.97 (54.43 kg, 165.10 cm) ca1 ED Course: 13:29 Patient arrived in ED. mr 13:53 Triage completed. ca1 13:54 Arm band placed on right wrist. ca1 15:30 Patient has correct armband on for positive identification. Placed in gown. Call light vc in reach. monitoring manager on. Pulse ox on. NIBP on. 15:40 Harjinder Raymond MD is Attending Physician. poly 15:58 Ann Marie Rg, ANDREY is Primary Nurse. vc 15:58 XRAY Chest (1 view) In Process Unspecified. EDMS 16:04 Initial lab(s) drawn, by me, sent to lab. Inserted saline lock: 20 gauge in right lt1 antecubital area, using aseptic technique. 16:54 US Abdomen Limited In Process Unspecified. EDMS 18:07 CT Head Brain wo Cont In Process Unspecified. EDMS 18:08 CT Abd/Pelvis - PO and IV Contrast In Process Unspecified. EDMS 19:10 Leonel Palma MD is Referral Physician. poly 19:19 No provider procedures requiring assistance completed. vc 19:38 IV discontinued, intact, bleeding controlled, No redness/swelling at site. Pressure vc dressing applied. Administered Medications: 16:03 Drug: morphine 2 mg Route: IVP; Site: right antecubital; vc 16:03 Drug: Zofran (Ondansetron) 4 mg Route: IVP; Site: right antecubital; vc 18:24 Follow up: Response: No adverse reaction vc 16:05 Drug: Pepcid 20 mg Route: IVP; Site: right antecubital; vc 18:25 Follow up: Response: No adverse reaction vc 16:20 Drug: morphine 2 mg Route: IVP; Site: right antecubital; vc 18:25 Follow up: Response: Pain is decreased vc 17:05 Drug: Dilaudid 0.5 mg Route: IVP; Site: right antecubital; vc 18:24 Follow up: Response: No adverse reaction vc 17:05 Drug: Zofran (Ondansetron) 4 mg Route: IVP; Site: right antecubital; vc 18:02 Follow up: Response: No adverse reaction; Nausea is decreased vc 17:05 Drug: Rocephin 1 grams Route: IV; Rate: per protocol; Site: right antecubital; vc 18:23 Drug: levofloxacin 500 mg Volume: 100 ml; Route: IVPB; Infused Over: 60 mins; Site: vc right antecubital; 19:16 Drug: Dilaudid 0.5 mg Route: IVP; Site: right antecubital; vc 19:16 Follow up: Response: No adverse reaction; Marked relief of symptoms; Medication vc administered at discharge. 21:32 Follow up: Response: No adverse reaction; Medication administered at discharge. vc 19:16 Drug: Zofran (Ondansetron) 4 mg Route: IVP; Site: right antecubital; vc 19:16 Follow up: Response: No adverse reaction; Medication administered at discharge. vc 19:20 Follow up: Response: No adverse reaction; Medication administered at discharge. vc Outcome: 19:10 Discharge ordered by . poly 19:37 Discharged to home ambulatory, with significant other. vc 19:37 Condition: good 19:37 Discharge instructions given to patient, significant other, Instructed on discharge instructions, follow up and referral plans. medication usage, Demonstrated understanding of instructions, follow-up care, medications, Prescriptions given X 4. 19:38 Patient left the ED. vc Addendum: 09/21/2019 15:57 Addendum: Culture Results: Positive urine culture. No further action required. Bacteria s s sensitive to prescribed antibiotic. Signatures: Dispatcher [employer] EDHarjinder Moscoso MD MD cha Rivera, Courtney mr HilliardJunie lou RN RN ss Marcela Salgado RN RN [facility] Rocha, Kailey lt1 Ann Marie Rg RN RN vc
[2019-09-19 21:36] VITALS: TEMP 98.8
[2019-09-19 21:42] VITALS: BP 116/89; O2SAT 97
--- NOTE | 2019-09-20 05:55 | EKG ---
Test Date: 2019-09-19 Test Time: 16:17:25 Baby Attendant: LINDSEY MEASUREMENT RESULTS: Intervals: Rate: 79 ME: 150 QRSD: 84 QT: 402 QTc: 460 [place]: P: 66 ME: 150 QRS: 67 T: 72 INTERPRETIVE STATEMENTS: Sinus rhythm with premature atrial complexes Otherwise normal ECG Compared to ECG 03/24/2019 12:34:53 Atrial premature complex(es) now present Electronically Signed On 09-20-19 05:54:57 BARREL RIFLER by Garfield Iraheta
== END 2019-09-19 19:38 | disposition home or self-care (01) ==
LOC: ER 13:26
DX: K75.81 Nonalcoholic steatohepatitis (NASH) (principal); N39.0 Urinary tract infection, site not specified; F17.210 Nicotine dependence, cigarettes, uncomplicated; Z88.0 Allergy status to penicillin; Z98.82 Breast implant status
CPT/HCPCS: 36415; 70450; 71045; 74177; 76705; 80048; 80076; 81003; 81015; 81025; 83690; 83735; 83880; 84484; 85025; 85610; 87077; 87086; 87088; 87186; 93005; 96374; 96375; 99284; J0696; J1170; J2270; J2405; Q9967

== ENCOUNTER 2021-08-15 01:34 | Emergency (ER) | payer SELFPAY ==
[2021-08-15] MEDS ORDERED: MORPHINE 2 MG/ML SYR ONE ×3 (01:59→03:45)
[2021-08-15] MEDS ORDERED: LORazepam 2 MG/ML VIAL ONE (02:02)
[2021-08-15] MEDS ORDERED: NA CHLORIDE 0.9% 1,000 ML ONE (02:03)
[2021-08-15] MEDS ORDERED: ONDANSETRON 4 MG/2 ML VIAL ONE ×2 (02:03→02:21)
[2021-08-15 02:28] LABS: Urine Blood 2+ (Negative); Urine Glucose Negative (Negative); Urine Protein 3+ (Negative); Urine pH 8.5 (5.0-7.0)
[2021-08-15 02:41] LABS: Hematocrit 43.5 % (36.0-45.0); Lymphocytes % 23.3 % (15.3-44.8); RBC Red Blood Cell Count 4.24 M/uL (3.86-4.86)
[2021-08-15 02:51] LABS: Bilirubin Direct 0.3 mg/dL (0-0.2); Bilirubin Total 1.1 mg/dL (0.2-1.0); Potassium 3.6 mmol/L (3.5-5.1); Protein, Total 9.5 g/dL (6.4-8.2)
[2021-08-15] MEDS ORDERED: CIPROFLOXACIN 400mg IV 400 MG/200 ML BAG IV ONE (03:38)
[2021-08-15 03:49] LABS: SARS-COV-2 RT PCR NEGATIVE (NEGATIVE)
--- NOTE | 2021-08-15 04:00 | ER ---
Nurse's Notes [facility] Name: Serina Shoemaker Age: 41 yrs Sex: Female : 1980 Arrival Date: 08/15/2021 Time: 01:37 Bed 9 Private MD: Johnny Ford Diagnosis: UTI/ Urinary tract infection, site not specified Presentation: 08/15 01:52 Chief complaint: Patient states: abdominal pain, dizziness, and hot flashes for 3 days. al4 01:52 Method Of Arrival: Wheelchair al4 02:05 Coronavirus screen: Vaccine status: Patient reports receiving the 2nd dose of the covid mk vaccine. Ebola Screen: Patient negative for fever greater than or equal to 101.5 degrees Fahrenheit, and additional compatible Ebola Virus Disease symptoms. Initial Sepsis Screen: Does the patient meet any 2 criteria? No. Patient's initial sepsis screen is negative. Does the patient have a suspected source of infection? No. Patient's initial sepsis screen is negative. Risk Assessment: Do you want to hurt yourself or someone else? Patient reports no desire to harm self or others. Onset of symptoms was August 12, 2021. 02:05 Acuity: PAYAL 3 mk Triage Assessment: 02:00 General: Appears uncomfortable, Behavior is anxious. Pain: Denies pain. Neuro: Level of mk Consciousness is awake, alert, obeys commands, Oriented to person, place, time, situation, Disability Counselor are equal bilaterally Moves all extremities. Gait is steady. Cardiovascular: Heart tones S1 S2 present Capillary refill < 3 seconds in bilateral fingers toes JVD is absent Patient's skin is warm and dry. Pulses are 2+ in right radial artery, right dorsalis pedis artery, left radial artery and left dorsalis pedis artery Rhythm is sinus rhythm. GI: Bowel sounds present X 4 quads. Abd is soft and non tender Abdomen is tender to palpation in right upper quadrant and right lower quadrant Reports lower abdominal pain, diarrhea, nausea, vomiting, since 3 days. : No signs and/or symptoms were reported regarding the genitourinary system. Derm: Skin is intact, is healthy with good turgor, Skin is dry, Skin temperature is warm. Musculoskeletal: Circulation, motion, and sensation intact. Capillary refill < 3 seconds, in bilateral fingers. toes. Range of motion: intact in all extremities. 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 - Social history:: Smoking status: Patient denies any tobacco usage or history of. Screenin:07 Abuse screen: Denies threats or abuse. Nutritional screening: No deficits noted. mk Tuberculosis screening: No symptoms or risk factors identified. Fall Risk No fall in past 12 months (0 pts). No secondary diagnosis (0 pts). IV access (20 points). Ambulatory Aid- None/Bed Rest/Nurse Assist (0 pts). Gait- Normal/Bed Rest/Wheelchair (0 pts) Mental Status- Oriented to own ability (0 pts). Total Barnes Fall Scale indicates No Risk (0-24 pts). Assessment: 02:02 General: Appears uncomfortable, Behavior is anxious. Pain: Complains of pain in abdomen mk Pain currently is 10 out of 10 on a pain scale. Quality of pain is described as crampy, Pain began gradually, 2-3 days ago. Is continuous. Neuro: Level of Consciousness is awake, alert, obeys commands, Oriented to person, place, time, situation, Moves all extremities. Gait is steady, Speech is normal, Facial symmetry appears normal. Cardiovascular: Heart tones S1 S2 Capillary refill < 3 seconds in bilateral fingers toes JVD is absent Patient's skin is warm and dry. Pulses are 2+ in right radial artery, right dorsalis pedis artery, left radial artery and left dorsalis pedis artery Rhythm is regular. Respiratory: Airway is patent Trachea midline Respiratory effort is even, unlabored, Respiratory pattern is regular, symmetrical. GI: Abdomen is flat, non-distended, Bowel sounds present X 4 quads. Abd is soft Abdomen is tender to palpation in right upper quadrant and right lower quadrant Reports diarrhea, nausea, vomiting. 02:02 : Reports pain lower quadrant(s). Derm: Skin is intact, is healthy with good turgor, mk Skin is dry, Skin is pink, warm \\T\\ dry. Skin temperature is warm. 03:00 Reassessment: Patient and/or family updated on plan of care and expected duration. Pain mk level reassessed. Patient is alert, oriented x 3, equal unlabored respirations, skin warm/dry/pink. Patient states symptoms have improved. 03:00 Pain: Pain currently is 7 out of 10 on a pain scale. mk 04:05 Reassessment: Patient and/or family updated on plan of care and expected duration. Pain mk level reassessed. Patient is alert, oriented x 3, equal unlabored respirations, skin warm/dry/pink. Patient states symptoms have improved. Pain: Complains of pain in abdomen Pain currently is 5 out of 10 on a pain scale. Quality of pain is described as aching, Pain began gradually, 2-3 days ago. Is continuous. Pain: Complains of pain in abdomen Pain currently is 5 out of 10 on a pain scale. Quality of pain is described as crampy, Pain began gradually, 2-3 days ago. Is continuous. 05:07 Reassessment: Reassessment: Patient and/or family updated on plan of care and expected mk duration. Pain level reassessed. Patient is alert, oriented x 3, equal unlabored respirations, skin warm/dry/pink. Patient states symptoms have improved. vomited after this RN removed pt's IV, states she is no longer nauseous. Vital Signs: 02:05 BP 120 / 93; Pulse 63; Resp 18; Temp 98.4(O); Pulse Ox 100% on R/A; Weight 58.97 kg; mk Height 5 ft. 5 in. (165.10 cm); 03:00 BP 138 / 91; Pulse 89; Resp 16; Pulse Ox 98% on R/A; mk 04:00 BP 128 / 92; Pulse 84; Resp 16; Pulse Ox 99% on R/A; mk 05:05 BP 117 / 85; Pulse 79; Resp 18; Temp 98.9; Pulse Ox 99% on R/A; mk 02:05 Body Mass Index 21.63 (58.97 kg, 165.10 cm) Radisson Coma Score: 03:00 Eye Response: spontaneous(4). Verbal Response: oriented(5). Motor Response: obeys mk commands(6). Total: 15. 04:01 Eye Response: spontaneous(4). Verbal Response: oriented(5). Motor Response: obeys mk commands(6). Total: 15. 05:05 Eye Response: spontaneous(4). Verbal Response: oriented(5). Motor Response: obeys mk commands(6). Total: 15. ED Course: 01:37 Patient arrived in ED. es 01:38 Johnny Ford DO is Private Physician. es 01:45 Mariusz Abdi PA is PHCP. [facility] 01:45 Dennis Thao MD is Attending Physician. jm 01:53 Emely Melvin, RN is Primary Nurse. mk 02:00 Arm band placed on. mk 02:00 Allergy band placed. Placed in gown. Bed in low position. Call light in reach. Side mk rails up X2. Pulse ox on. NIBP on. 02:06 Triage completed. mk 02:20 Inserted saline lock: 20 gauge in left antecubital area, using aseptic technique. mk 02:22 Basic Metabolic Panel Sent. mk 02:22 CBC with Diff Sent. mk 02:23 Hepatic Function Sent. mk 02:23 Lipase Sent. mk 03:01 CT Abd/Pelvis - IV Contrast Only In Process Unspecified. EDMS 03:15 COVID-19/FLU A+B (Document "Date of Onset" if Symptomatic) Sent. mk 03:15 Urine Dipstick-Ancillary Sent. mk 03:15 Urine --Ancillary (enter results) Sent. mk 03:24 US Pelvis Complete In Process Unspecified. EDMS 04:36 No provider procedures requiring assistance completed. mk 04:56 Awaiting: pt had 1 episode of vomiting when RN removed IV for DC, this RN notified judy Thao MD. 05:15 IV discontinued, intact, bleeding controlled, No redness/swelling at site. Pressure mk dressing applied. 05:16 Awaiting: infusion of IV abx. mk Administered Medications: 02:23 Drug: Ativan (LORazepam) 1 mg Route: IVP; Site: right antecubital; mk 02:52 Follow up: Response: No adverse reaction; Marked relief of symptoms mk 02:23 Drug: Zofran (Ondansetron) 4 mg Route: IVP; Site: right antecubital; mk 02:52 Follow up: Response: No adverse reaction mk 02:23 Drug: morphine 2 mg Route: IVP; Site: right antecubital; mk 02:24 Drug: NS 0.9% 1000 ml Route: IV; Rate: 1 bolus; Site: right antecubital; mk 02:52 Follow up: Response: No adverse reaction; IV Status: Completed infusion; IV Intake: mk 1000ml 03:42 Drug: Cipro (ciprofloxacin) 400 mg Volume: 200 ml; Route: IVPB; Infused Over: 60 mins; Site: left antecubital; 04:42 Follow up: Response: No adverse reaction; IV Status: Completed infusion; IV Intake: mk 200ml 03:52 Drug: morphine 2 mg Route: IVP; Site: left antecubital; mk 04:16 Follow up: Response: No adverse reaction 04:58 Drug: Phenergan (promethazine) 12.5 mg Route: IM; Site: right deltoid; mk 05:17 Follow up: Response: No adverse reaction mk Intake: 02:52 IV: 1000ml; Total: 1000ml. mk 04:42 IV: 200ml; Total: 1200ml. Outcome: 03:59 Discharge ordered by . rn 05:15 Discharged to home 05:15 Condition: stable 05:15 Discharge instructions given to patient, family, Prescriptions given X 3. 05:19 Patient left the ED. Signatures: Dispatcher [employer] EDMS Mariusz Abdi PA PA jmm Salyer, Edna es Nieto, Roman, MD MD rn Ledbetter, Alexis al4 Kotarski, Madeline, RN RN Corrections: (The following items were deleted from the chart) 02:07 02:06 PMHx: fatty liver; [facility] 02:07 02:06 PMHx: PLATA; [facility] 02:07 02:06 PMHx: Pneumonia; [facility] 04:35 01:00 Pain: Denies pain. [facility] 04:35 01:00 Neuro: Level of Consciousness is awake, alert, obeys commands, Oriented to person, place, time, situation, Disability Counselor are equal bilaterally Moves all extremities. Gait is steady, :35 01:00 General: Appears uncomfortable, Behavior is anxious, [facility] :35 01:00 Cardiovascular: Heart tones S1 S2 present Capillary refill < 3 seconds in bilateral fingers toes JVD is absent Patient's skin is warm and dry. Pulses are 2+ in right radial artery, right dorsalis pedis artery, left radial artery and left dorsalis pedis artery Rhythm is sinus rhythm :35 01:00 GI: Bowel sounds present X 4 quads. Abd is soft and non tender Abdomen is tender mk to palpation in right upper quadrant and right lower quadrant Reports lower abdominal pain, diarrhea, nausea, vomiting, since 3 days 04:35 01:00 : No signs and/or symptoms were reported regarding the genitourinary system. [facility] 04:35 01:00 Derm: Skin is intact, is healthy with good turgor, Skin is dry, Skin temperature mk is warm 04:35 01:00 Musculoskeletal: Circulation, motion, and sensation intact. Capillary refill < 3 mk seconds, in bilateral fingers. toes. Range of motion: intact in all extremities, 05:09 05:07 Reassessment: [facility] : 02:00 Reassessment: Patient and/or family updated on plan of care and expected mk duration. Pain level reassessed. Patient is alert, oriented x 3, equal unlabored respirations, skin warm/dry/pink. Patient states symptoms have improved. : 01:18 General: Appears uncomfortable, Behavior is anxious, [facility] :15 01:18 Pain: Complains of pain in abdomen Pain currently is 10 out of 10 on a pain scale. Quality of pain is described as crampy, Pain began gradually, 2-3 days ago. Is continuous, : 03:00 Neuro: Level of Consciousness is awake, alert, obeys commands, Oriented to person, place, time, situation, Moves all extremities. Gait is steady, Speech is normal, Facial symmetry appears normal, : 03:00 Cardiovascular: Heart tones S1 S2 Capillary refill < 3 seconds in bilateral mk fingers toes JVD is absent Patient's skin is warm and dry. Pulses are 2+ in right radial artery, right dorsalis pedis artery, left radial artery and left dorsalis pedis artery Rhythm is regular : 03:00 Respiratory: Airway is patent Trachea midline Respiratory effort is even, mk unlabored, Respiratory pattern is regular, symmetrical, :15 03:00 GI: Abdomen is flat, non-distended, Bowel sounds present X 4 quads. Abd is soft mk Abdomen is tender to palpation in right upper quadrant and right lower quadrant Reports diarrhea, nausea, vomiting, 05:16 05:15 LMP 07/27/2021 [facility]
--- NOTE | 2021-08-15 04:00 | EDPHYS ---
Physician Documentation [facility] Name: Serina Shoemaker Age: 41 yrs Sex: Female : 1980 Arrival Date: 08/15/2021 Time: 01:37 Bed 9 Private MD: Johnny Ford ED Physician Dennis Thao HPI: 08/15 01:58 This 41 yrs old Female presents to ER via Wheelchair with complaints of Fever, jmm Vomiting, Abdominal Pain. 01:58 The patient presents with abdominal pain. Onset: The symptoms/episode began/occurred jmm gradually, 3 day(s) ago. The symptoms radiate to back. Associated signs and symptoms: Pertinent positives: nausea and vomiting, diarrhea. The symptoms are described as achy, sharp. Modifying factors: The symptoms are alleviated by nothing, the symptoms are aggravated by nothing. This is a 41 year old female with a history of anxiety, gastric sleeze that presents to the ED with complaints of abdominal pain beginning approx 3 days ago. Vomiting began this evening. States also having 2 episodes of diarrhea. . 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 - Social history:: Smoking status: Patient denies any tobacco usage or history of. ROS: 01:58 Constitutional: Negative for fever, chills, and weight loss, Cardiovascular: Negative jmm for chest pain, palpitations, and edema, Respiratory: Negative for shortness of breath, cough, wheezing, and pleuritic chest pain. 01:58 Abdomen/GI: Positive for abdominal pain, nausea and vomiting, diarrhea. 01:58 All other systems are negative. Exam: 01:58 Constitutional: This is a well developed, well nourished patient who is awake, alert, jmm and in no acute distress. Head/Face: atraumatic. Eyes: EOMI, no conjunctival erythema appreciated ENT: Moist Mucus Membranes Neck: Trachea midline, Supple Chest/axilla: Normal chest wall appearance and motion. Cardiovascular: Regular rate and rhythm. No edema appreciated Respiratory: Normal respirations, no respiratory distress appreciated 01:58 Skin: General appearance color normal MS/ Extremity: Moves all extremities, no obvious deformities appreciated, no edema noted to the lower extremities Neuro: Awake and alert Psych: Behavior is normal, Mood is normal, Patient is cooperative and pleasant 01:58 Abdomen/GI: Inspection: abdomen appears normal, Bowel sounds: normal, Palpation: soft, mild abdominal tenderness, in the suprapubic area, right lower quadrant and left lower quadrant. Vital Signs: 02:05 BP 120 / 93; Pulse 63; Resp 18; Temp 98.4(O); Pulse Ox 100% on R/A; Weight 58.97 kg; mk Height 5 ft. 5 in. (165.10 cm); 03:00 BP 138 / 91; Pulse 89; Resp 16; Pulse Ox 98% on R/A; mk 04:00 BP 128 / 92; Pulse 84; Resp 16; Pulse Ox 99% on R/A; mk 05:05 BP 117 / 85; Pulse 79; Resp 18; Temp 98.9; Pulse Ox 99% on R/A; mk 02:05 Body Mass Index 21.63 (58.97 kg, 165.10 cm) Kimberley Coma Score: 03:00 Eye Response: spontaneous(4). Verbal Response: oriented(5). Motor Response: obeys mk commands(6). Total: 15. 04:01 Eye Response: spontaneous(4). Verbal Response: oriented(5). Motor Response: obeys mk commands(6). Total: 15. 05:05 Eye Response: spontaneous(4). Verbal Response: oriented(5). Motor Response: obeys mk commands(6). Total: 15. MDM: 01:45 Patient medically screened. [facility] 02:29 Data reviewed: vital signs, nurses notes. Transition of care: After a detail discussion [facility] of the patient's case, care is transferred to Dennis Thao MD. 03:36 Differential diagnosis: viral Infection, bacterial infection, UTI, gastroenteritis. rn 03:36 ED course: U/S pelvis neg with good ovarian flow per U/S tech.. rn 03:58 Counseling: I had a detailed discussion with the patient and/or guardian regarding: the rn historical points, exam findings, and any diagnostic results supporting the discharge/admit diagnosis, lab results, radiology results, the need for outpatient follow up, to return to the emergency department if symptoms worsen or persist or if there are any questions or concerns that arise at home. Response to treatment: the patient's symptoms have mildly improved after treatment, and as a result, I will discharge patient. Special discussion: I discussed with the patient/guardian in detail that at this point there is no indication for admission to the hospital. It is understood, however, that if the symptoms persist or worsen the patient needs to return immediately for re-evaluation. 08/15 01:52 Order name: Basic Metabolic Panel; Complete Time: 03:04 [facility] 08/15 01:52 Order name: CBC with Diff; Complete Time: 03:04 [facility] 08/15 01:52 Order name: Hepatic Function; Complete Time: 03:04 [facility] 08/15 01:52 Order name: Lipase; Complete Time: 03:04 [facility] 08/15 02:23 Order name: COVID-19/FLU A+B (Document "Date of Onset" if Symptomatic); Complete Time: [facility] 03:58 08/15 02:28 Order name: Urine Dipstick-Ancillary [facility] 08/15 01:52 Order name: CT Abd/Pelvis - IV Contrast Only; Complete Time: 17:03 [facility] 08/15 02:29 Order name: US Pelvis Complete; Complete Time: 17:03 [facility] 08/15 02:37 Order name: Urine --Ancillary (enter results); Complete Time: 03:58 [facility] 08/15 03:21 Order name: CREATININE WHOLE BLOOD; Complete Time: 03:24 [facility] 08/15 01:52 Order name: IV Saline Lock; Complete Time: 02:23 [facility] 08/15 01:52 Order name: Labs collected and sent; Complete Time: 02:23 [facility] 08/15 01:52 Order name: Urine Dipstick-Ancillary (obtain specimen); Complete Time: 02:23 [facility] 08/15 01:52 Order name: Urine Test (obtain specimen); Complete Time: 02:23 [facility] Administered Medications: 02:23 Drug: Ativan (LORazepam) 1 mg Route: IVP; Site: right antecubital; mk 02:52 Follow up: Response: No adverse reaction; Marked relief of symptoms mk 02:23 Drug: Zofran (Ondansetron) 4 mg Route: IVP; Site: right antecubital; mk 02:52 Follow up: Response: No adverse reaction mk 02:23 Drug: morphine 2 mg Route: IVP; Site: right antecubital; mk 02:24 Drug: NS 0.9% 1000 ml Route: IV; Rate: 1 bolus; Site: right antecubital; mk 02:52 Follow up: Response: No adverse reaction; IV Status: Completed infusion; IV Intake: mk 1000ml 03:42 Drug: Cipro (ciprofloxacin) 400 mg Volume: 200 ml; Route: IVPB; Infused Over: 60 mins; mk Site: left antecubital; 04:42 Follow up: Response: No adverse reaction; IV Status: Completed infusion; IV Intake: mk 200ml 03:52 Drug: morphine 2 mg Route: IVP; Site: left antecubital; mk 04:16 Follow up: Response: No adverse reaction mk 04:58 Drug: Phenergan (promethazine) 12.5 mg Route: IM; Site: right deltoid; mk 05:17 Follow up: Response: No adverse reaction mk Disposition Summary: 08/15/21 03:59 Discharge Ordered Location: Home rn Problem: new rn Symptoms: have improved rn Condition: Stable rn Diagnosis - UTI/ Urinary tract infection, site not specified rn Followup: rn - With: Private Physician - When: As needed - Reason: Recheck today's complaints, Re-evaluation by your physician Discharge Instructions: - Discharge Summary Sheet rn - Urinary Tract Infection, Adult rn Forms: - Medication Reconciliation Form rn - Thank You Letter rn - Antibiotic learning and development director - Prescription Opioid Use rn Prescriptions: - Cipro 500 mg Oral Tablet - take 1 tablet by ORAL route every 12 hours for 7 days; 14 tablet; Refills: 0, rn Product Selection Permitted - Tramadol 50 mg Oral Tablet - take 1 tablet by ORAL route every 8 hours as needed; 12 tablet; Refills: 0, rn Product Selection Permitted - ondansetron 4 mg Oral tablet,disintegrating - take 1 tablet by ORAL route every 8 hours As needed; 15 tablet; Refills: 0, rn Product Selection Permitted Addendum: 08/19/2021 07:02 Co-signature as Attending Physician, Dennis Thao MD I agree with the assessment and r n plan of care. Signatures: Dispatcher [employer] EDMS Mariusz Abdi PA PA jmm Nieto, Roman, MD MD rn Kotarski, Madeline, RN RN judy Corrections: (The following items were deleted from the chart) 08/15 02:07 02:06 PMHx: fatty liver; mk mk 02:07 02:06 PMHx: PLATA; [facility] 02:07 02:06 PMHx: Pneumonia; [facility]
[2021-08-15] MEDS ORDERED: PROMETHAZINE INJ 25 MG/ML AMP ONE (04:52)
[2021-08-15 05:29] VITALS: O2SAT 99
[2021-08-15 05:31] VITALS: BP 117/85; TEMP 98.9
--- NOTE | 2021-08-15 08:09 | RAD REPORT ---
EXAM DESCRIPTION: US - Pelvis Complete - 08/15/2021 3:24 am CLINICAL HISTORY: pelvic pain Preliminary findings were provided at the time the study. COMPARISON: PELVIC COMPLETE dated 11/24/2007 TECHNIQUE: Transabdominal pelvic sonography was performed. FINDINGS: Endometrial stripe is 5 mm with no focal endometrial abnormality identifiable. Uterus is n ormal size with no myometrial mass seen. No blood or fluid in the cul de sac. Both ovaries are identifiable. No dominant solid or cystic ovarian or adnexal finding. Doppler evalua tion shows normal blood flow within each ovary. IMPRESSION: Normal blood flow demonstrated in both ovaries. No ovarian or adnexal abnormalities iden tifiable. No uterine abnormality seen.
--- NOTE | 2021-08-15 11:29 | RAD REPORT ---
EXAM DESCRIPTION: CT - Abdomen Pelvis W Contrast - 08/15/2021 7:10 am CLINICAL HISTORY: The patient is 41 years old and is Female; lower abdominal pain, vomiting TECHNIQUE: Axial computed tomography images of the abdomen and pelvis with intravenous contrast. S agittal and coronal reformatted images were created and reviewed. This CT exam was performed using one or more of the following dose reduction techniques: automated exposure control, adjustment of t he mA and/or kV according to patient size, and/or use of iterative reconstruction technique. COMPARISON: CT ABDOMEN PELVIS dated September 19 2019 FINDINGS: LUNG BASES: Unremarkable. No mass. No consolidation. ABDOMEN: LIVER: Unremarkable. No mass. GALLBLADDER AND BILE DUCTS: Gallbladder is physiologically distended. No calcified gallstones se en. PANCREAS: No ductal dilation. No mass. SPLEEN: Unremarkable. ADRENALS: Unremarkable. No mass. KIDNEYS AND URETERS: Mild thickening of the left urothelium is present. There is no hydronephros is or hydroureter of either kidney. No obstructing renal or ureteral calculus is seen. STOMACH AND BOWEL: Postsurgical change of the stomach is present. The small bowel is normal in c aliber. Stool is present throughout colon. There is no mucosal thickening or evidence of bowel obstru ction. PELVIS: APPENDIX: No findings to suggest acute appendicitis. BLADDER: Diffuse bladder wall thickening is present. REPRODUCTIVE: A 1.9 cm right ovarian cyst is present. No follow-up imaging is recommended. [place] l uterine fibroid is suggested. Small left follicular ovarian cyst is present. No follow-up imaging i s recommended. ABDOMEN and PELVIS: INTRAPERITONEAL SPACE: Unremarkable. No free air. No significant fluid collection. BONES/JOINTS: No acute fracture. SOFT TISSUES: Bilateral breast implants are partially visualized. VASCULATURE: Unremarkable. No abdominal aortic aneurysm. LYMPH NODES: Unremarkable. No enlarged lymph nodes. IMPRESSION: Findings suggest extensive cystitis with associated mild left ureteritis. 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 The interpreting r adiologist is fully responsible for the content of the report.
== END 2021-08-15 05:19 | disposition home or self-care (01) ==
LOC: ER 01:34
DX: N39.0 Urinary tract infection, site not specified (principal); Z20.822 Contact with and (suspected) exposure to COVID-19; Z88.0 Allergy status to penicillin
CPT/HCPCS: 0240U; 36415; 74177; 76856; 80048; 80076; 81003; 81025; 82565; 83690; 85025; 96372; 99284; J0744; J2270; J2405; J2550; J7030; Q9967

== ENCOUNTER 2022-06-27 23:23 | Emergency (ER) | payer OTHER ==
--- OUTSIDE RECORDS SUMMARY | 2022-06-27 23:26 | XMS REPORT | Continuity of Care Document ---
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 without complicati complicati on on Allergies, Adverse Reactions, Alerts Allergy Allergy Status Severity Reaction(s) Onset Inactive Treating Comm ents Source Name Type Date Date Clinician Penicill Propensi Active 2021-07 ins - ty to 1-16 CLASS adverse 00:00: reaction 00 to drug Unable DA Active U 2021-07 SJm to 0-14 Assess 00:00: 00 Penicill DA Active U Unknown 2021-07 SJm ins 0-14 00:00: 00 Penicill Propensi Active Other 2021-07 Iraheta ins ty to 0-13 Health adverse 00:00: reaction 00 s to drug Penicill Propensi Active ins ty to 3-19 adverse 00:00: reaction 00 to drug Social History Social Habit Start Date Stop Date Quantity Comments Source History of Smokes tobacco Iraheta Hea [facility] tobacco use daily Tobacco use and 2022-05-02 2022-05-02 Smokeless tobacco [facility] exposure 00:00:00 00:00:00 non-user Alcohol intake 2022-05-02 2022-05-02 Current drinker of [employer] 00:00:00 00:00:00 alcohol (finding) Alcohol Comment 2022-05-02 2022-05-02 2 24 packs of discoapi 00:00:00 00:00:00 beer/ day Sex Assigned At [birth year] [facility] alth 00:00:00 00:00:00 Smoking Status Start Date Stop Date Source Smokes tobacco daily 2022-05-02 00:00:00 [facility] Medications Ordered Filled Start Stop Current Ordering Indication Dosage Frequency Signature Comments Components Source Medication Medication Date Date Medication? Clinician (SIG) Name Name LEVOTHYROXI 2021-07 No N TAB 25MCG 08-04 00:00: 00 SERTRALINE 2021-07 No TAB 25MG 16 00:00: 00 Dose 2015-0 No Unknown 1-26 00:00: 00 Celexa 40 2015-0 No 1mg mg tablet 9-30 00:00: 00 levothyroxi 2015-0 No 1mcg ne 25 mcg 9-30 tablet 00:00: 00 levothyroxi 2015-0 No 1mcg ne 25 mcg 6-08 tablet 00:00: 00 levothyroxi 2015-0 No 1mcg ne 25 mcg 3-26 tablet 00:00: 00 Celexa 40 2015-0 No 1mg mg tablet 3-26 00:00: 00 levothyroxi 2015-0 No 1mcg ne 25 mcg 3-26 tablet 00:00: 00 Celexa 40 2015-0 No 1mg mg tablet 3-19 00:00: 00 Celexa 40 2015-0 No 1mg mg tablet 3-19 00:00: 00 naproxen 2015-0 No 1mg 500 mg 3-19 tablet 00:00: 00 Vital Signs Vital Name Observation Time Observation Value Comments Source BP Systolic 2022-06-05 11:45:00 116 mm[Hg] BP Diastolic 2022-06-05 11:45:00 69 mm[Hg] Weight Measured 2022-06-05 11:45:00 126.80 pounds Height Measured 2022-06-05 11:45:00 65.00 inches Body Temperature 2022-06-05 11:45:00 97.60 degrees Heart Rate 2022-06-05 11:45:00 98.00 /min Respiratory Rate 2022-06-05 11:45:00 19.00 /min BP Systolic 2022-06-04 10:08:00 117 mm[Hg] BP Diastolic 2022-06-04 10:08:00 86 mm[Hg] Weight Measured 2022-06-04 10:08:00 120.00 pounds Height Measured 2022-06-04 10:08:00 65.00 inches Body Temperature 2022-06-04 10:08:00 97.90 degrees Heart Rate 2022-06-04 10:08:00 68.00 /min Respiratory Rate 2022-06-04 10:08:00 16.00 /min Systolic blood pressure 2022-05-02 02:16:00 127 mm[Hg] [facility] Diastolic blood pressure 2022-05-02 02:16:00 93 mm[Hg] [facility] Heart rate 2022-05-02 02:16:00 64 /min [facility] Body temperature 2022-05-02 02:16:00 36.78 [facility] Respiratory rate 2022-05-02 02:16:00 18 /min [facility] Oxygen saturation in 2022-05-02 02:16:00 100 /min [facility] Arterial blood by Pulse oximetry Body height 2022-05-01 13:04:00 165.1 cm [facility] Body weight 2022-05-01 13:04:00 58.968 kg [facility] BMI 2022-05-01 13:04:00 21.63 kg/m2 [facility] BP Systolic 2015-09-19 08:51:00 129 mm[Hg] BP Diastolic 2015-09-19 08:51:00 84 mm[Hg] Weight Measured 2015-09-19 08:51:00 215.80 pounds Height Measured 2015-09-19 08:51:00 65.00 inches Body Temperature 2015-09-19 08:51:00 98.00 degrees Heart Rate 2015-09-19 08:51:00 80.00 /min Respiratory Rate 2015-09-19 08:51:00 16.00 /min BP Systolic 2015-09-19 08:44:00 129 mm[Hg] BP Diastolic 2015-09-19 08:44:00 84 mm[Hg] Weight Measured 2015-09-19 08:44:00 215.80 pounds Height Measured 2015-09-19 08:44:00 65.00 inches Body Temperature 2015-09-19 08:44:00 98.00 degrees Heart Rate 2015-09-19 08:44:00 80.00 /min Respiratory Rate 2015-09-19 08:44:00 16.00 /min BP Systolic 2015-04-21 08:33:00 119 mm[Hg] BP Diastolic 2015-04-21 08:33:00 81 mm[Hg] Weight Measured 2015-04-21 08:33:00 219.20 pounds Height Measured 2015-04-21 08:33:00 65.00 inches Body Temperature 2015-04-21 08:33:00 98.60 degrees Heart Rate 2015-04-21 08:33:00 75.00 /min Respiratory Rate 2015-04-21 08:33:00 16.00 /min BP Systolic 2015-01-04 10:33:00 132 mm[Hg] BP Diastolic 2015-01-04 10:33:00 84 mm[Hg] Weight Measured 2015-01-04 10:33:00 210.20 pounds Height Measured 2015-01-04 10:33:00 64.00 inches Body Temperature 2015-01-04 10:33:00 98.30 degrees Heart Rate 2015-01-04 10:33:00 82.00 /min Respiratory Rate 2015-01-04 10:33:00 18.00 /min Weight Measured 2014-12-25 09:28:00 209.40 pounds Height Measured 2014-12-25 09:28:00 64.00 inches Body Temperature 2014-12-25 09:28:00 Heart Rate 2014-12-25 09:28:00 76.00 /min Respiratory Rate 2014-12-25 09:28:00 20.00 /min BP Systolic 2014-12-25 09:28:00 105 mm[Hg] BP Diastolic 2014-12-25 09:28:00 80 mm[Hg] BP Systolic 2014-10-12 11:36:00 117 mm[Hg] BP Diastolic 2014-10-12 11:36:00 82 mm[Hg] Weight Measured 2014-10-12 11:36:00 210.80 pounds Height Measured 2014-10-12 11:36:00 64.00 inches Body Temperature 2014-10-12 11:36:00 98.30 degrees Heart Rate 2014-10-12 11:36:00 65.00 /min Respiratory Rate 2014-10-12 11:36:00 BP Systolic 2014-10-12 11:33:00 117 mm[Hg] BP Diastolic 2014-10-12 11:33:00 82 mm[Hg] Weight Measured 2014-10-12 11:33:00 210.80 pounds Height Measured 2014-10-12 11:33:00 64.00 inches Body Temperature 2014-10-12 11:33:00 98.30 degrees Heart Rate 2014-10-12 11:33:00 65.00 /min Respiratory Rate 2014-10-12 11:33:00 BP Systolic 2014-10-05 09:05:00 115 mm[Hg] BP Diastolic 2014-10-05 09:05:00 80 mm[Hg] Weight Measured 2014-10-05 09:05:00 211.00 pounds Height Measured 2014-10-05 09:05:00 64.00 inches Body Temperature 2014-10-05 09:05:00 98.30 degrees Heart Rate 2014-10-05 09:05:00 74.00 /min Respiratory Rate 2014-10-05 09:05:00 20.00 /min Procedures Procedure Date / Time Performed Performing Clinician [facility] e CONSULT CLINICAL CASE 2022-05-02 02:38:33 Norma Swift [facility] MANAGEMENT (RN/SW) BASIC METABOLIC PANEL 2022-05-01 14:03:00 Saji Bustamante [facility] s [facility] CBC/DIFF 2022-05-01 14:03:00 Saji Bustamante [facility] CBC 2022-05-01 14:03:00 Saji Bustamante [facility] LIVER PROFILE 2022-05-01 14:03:00 Norma Swiftt h LIPASE 2022-05-01 14:03:00 [facility] 2022-05-01 13:56:36 [facility] Plan of Care Planned Activity Planned Date Details Comments Source Future Scheduled Test 2022-04-19 IMM Influenza Seasonal [facility] 00:00:00 (>/= 19 yrs) [code = IMM Influenza Seasonal (>/= 19 yrs)] Future Scheduled Test 2020 Breast Cancer Scrn [facility] 00:00:00 (Yearly) [code = Breast Cancer Scrn (Yearly)] Future Scheduled Test 2010 Screening for malignant [facility] 00:00:00 neoplasm of cervix (procedure) [code = 607652879] Future Scheduled Test 2010 Screening for malignant [facility] 00:00:00 neoplasm of cervix (procedure) [code = 317915456] Future Scheduled Test 1986 Imm Pneumococcal 0-64 [facility] 00:00:00 (1 - PCV) [code = Imm Pneumococcal 0-64 (1 - PCV)] Future Scheduled Test 1980 COVID-19 Vaccine (#1) [facility] 00:00:00 [code = COVID-19 Vaccine (#1)] Goal Plan of Care Note [code = 69786-3] Goal Plan of Care Note [code = 36088-2] Goal Plan of Care Note [code = 94431-3] Goal Plan of Care Note [code = 69741-5] Goal Plan of Care Note [code = 55090-2] Goal Plan of Care Note [code = 84307-2] Goal Plan of Care Note [code = 90294-5] Encounters Start End Encounter Admission Attending Care Care Encounter Source Date/Time Date/Time Type Type Clinicians Facility Department ID 2022-06-05 2022-06-05 Outpatient [facility] [id number] Kasi Blanton 11:37:53 11:37:53 1117 F Josh 2022-06-05 2022-06-05 Outpatient [id number] [id number] 00:00:00 00:00:00 Visit [id number] 2022-05-02 2022-05-02 Emergency [facility] [id number] [facility] 15:38:00 15:38:00 63 2022-05-02 2022-05-02 Emergency Emergency Jassi Quezada [facility] [id number] [id number] [facility] 15:38:00 15:38:00 63 2022-05-02 2022-05-02 Emergency [facility] [id number] 02:15:00 04:25:00 [employer] 2022-05-02 2022-05-02 [facility] [id number] 02:15:00 04:25:00 [facility] Results Test Description Test Time Test Comments Results Result Comments Source Complete Blood Count Auto Diff 2022-05-02 16:00:00 Test Item Value Reference Range Interpretation Comme nts White Blood Count (test code = WBCT) 3.5 x10 3/uL 4.4-10.5 L Red Blood Count (test code = RBC) 4.05 x10 6/uL 3.75-5.20 N Hemoglobin (test code = HGBT) 14.3 g/dL 12.2-14.8 N Hematocrit (test code = HCTT) 40.0 % 36.5-44.4 N Mean Corpuscular Volume (test code = MCV) 98.80 fL 80.00-100.00 N Mean Corpuscular Hemoglobin (test code = MCH) 35.3 pg 27.0-32. 5 H Mean Corpuscular HGB Conc (test code = MCHC) 35.80 g/dL 32.00-37. 50 N RDW Coefficient of Variation (test code = RDWCV) 11.7 % 11.5- 14.5 N Platelet Count (test code = PLTT) 170.0 x10 3/uL 140.0-440.0 N Mean Platelet Volume (test code = MPV) 10.3 fL Immature Granulocytes % (Auto) (test code = IMMGRAN%) 0.3 % 0.0-5.0 N Neutrophils % (Auto) (test code = NE%) 34.2 % 36.0-70.0 L Lymphocytes % (Auto) (test code = LY%) 52.1 % 12.0-44.0 H Monocytes % (Auto) (test code = MO%) 10.5 % 0.0-11.0 N Eosinophils % (Auto) (test code = EO%) 2.3 % 0.0-7.0 N Basophils % (Auto) (test code = BA%) 0.6 % 0.0-2.0 N Immature Granulocytes # (Auto) (test code = IMMGRAN#) 0.01 x10 3/uL Neutrophils # (Auto) (test code = NE#) 1.2 x10 3/uL 1.6-7.4 L Lymphocytes # (Auto) (test code = LY#) 1.84 x10 3/uL 0.50-4.60 N Monocytes # (Auto) (test code = MO#) 0.37 x10 3/uL 0.00-1.20 N Eosinophils # (Auto) (test code = EO#) 0.08 x10 3/uL 0.00-0.74 N Basophils # (Auto) (test code = BA#) 0.02 x10 3/uL 0.00-0.21 N nRBC Abs (test code = NRBCA) 0 nRBC Pct (test code = NRBCP) 0 % Comprehensive Metabolic [id number] 16:00:00 Test Item Value Reference Range Interpretation Comments SODIUM (test code = NA) 131.0 mmol/L 136.0-145.0 L Potassium,K (test code = K) 3.7 mmol/L 3.0-5.1 N Chloride (test code = CL) 100 mmol/L 98-107 N Carbon Dioxide (test code = 22 mmol/L 20-31 N CO2) Anion Gap (test code = GAP) 9 mmol/L 5-15 N Blood Urea Nitrogen (test code < 5 mg/dL 9-23 L = BUN) Creatinine (test code = CREATT) 0.57 mg/dL 0.55-1.02 N Creatinine Clr Calc Pharmacy 116.88 mL/min (test code = CRCLPHA) Estimated GFR ( Carolynn > 60 mL/min/1.73m2 (test code = EGFRAA) Estimated GFR (Non Afr [place] > 60 mL/min/1.73m2 (test code = EGFRNAA) BUN/Creatinine Ratio (test code 9 ratio 10-20 L = BCRATIO) Glucose (test code = GLU) 77 mg/dL 74-106 N Osmolality,Calculated (test 267.7 code = OSMOC) Calcium (test code = CA) 8.5 mg/dL 8.3-10.6 N Bilirubin,Total (test code = 0.9 mg/dL 0.2-1.1 N BILIT) Aspartate Amino Transferase 89 U/L 0-34 H (test code = AST) Alanine Aminotransferase (test 71 U/L 10-49 H code = ALT) Total Protein (test code = TP) 7.9 g/dL 5.7-8.2 N Albumin Level (test code = ALB) 4.3 g/dL 3.2-4.8 N Globulin (test code = GLOB) 3.6 mg/dL 2.3-3.5 H Albumin/Globulin Ratio (test 1.2 ratio 0.8-2.0 N code = AGRATIO) Alkaline Phosphatase (test code 67 U/L 46-116 N = ALP) Ethanol [id number] 16:00:00 Test Item Value Reference Range Interpretation Comments Ethanol (test code 277 mg/dL The pharm acological = ETOH) response to blo od alcohol levels mayvary from individual to i ndividual. The fatal corwin ntrationhas been reported t o be >400mg/dL. UA, Urinalysis Rflx Cult/[id number] 15:55:00 Test Item Value Reference Range Interpretation Comments Color,Urine (test code = UCOL) Yellow Yellow Clarity,Urine (test code = Clear Clear UCLAR) Ph, Urine (test code = UPH) 5.5 5.0-9.0 N Specific [place],Urine (test <= 1.005 1.005-1.030 N code = USG) Blood,Urine (test code = UBLD) Negative mg/dL Negative Protein,Urine (test code = Negative mg/dL Negative UPRO) Glucose,Urine (UA) (test code Negative mg/dL Negative = UGLU) Ketones,Urine (test code = Negative mg/dL Negative UKET) Nitrate,Urine (test code = Negative Negative UNIT) Bilirubin,Urine (test code = Negative mg/dL Negative UBIL) Urobilinogen,Urine (test code 0.2 E.U./dL Normal = UURO) Leukocyte Esterase,Urine (test Negative mg/dL Negative code = ULEU) Drug Screen,[id number] 15:55:00 Test Item Value Reference Range Interpretation Comments PCP Phencyclidine Screen,Urine (test Negative Negative code = PCPU) Amphetamine Screen,Urine (test code Negative Negative = AMPU) Methadone Screen,Urine (test code = Negative Negative METHU) Opiate Screen,Urine (test code = Negative Negative UOPIS) Barbituates Screen,Urine (test code Negative Negative = BARBU) Benzodiazepines Screen,Urine (test Negative Negative code = UBENZS) Cocaine Screen,Urine (test code = Negative Negative UCOCS) Cannabinoid Screen,Urine (test code Negative Negative = UTHCS) Propoxyphene Screen, Urine (test Negative Negative code = UPROP) HCG, Urine Qual (LAB)2022-05-02 15:55:00 Test Item Value Reference Range Interpretation Comments HCG, Urine, Qual (test code = HCGU) Negative Negative Coronavirus PCR, COVID19 [id number] 13:57:00 Test Item Value Reference Range Interpretation Comments Coronavirus PCR, For use under Emergency COVID19 Rapid (test Use Authorization (EUA) code = SARSCOV2) only. 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 MeasurementsIntervals Simpson Rate: 96 P: 72PR: 148 QRS: 78QRSD: 91 T: 75QT: 367 QTc: 420 Interpretive StatementsSINUS RHYTHMElectronically Signed On 05-01-2022 13:59:18 CDT by Evy HERNANDEZ M.D.[facility] (T3U, T4, T7, TSH)2015-04-18 00:00:00 Test Item Value Reference Range Interpretation Comments T3 UPTAKE (test code = 2817) 24.1 % T4 (THYROXINE) (test code = 2819) 10.0 UG/DL CALCULATED T7 (FTI) (test code = 2.41 2820) TSH (test code = 2821) 6.7 UIU/ML THYROID II PROFILE (T3U, T4, T7, TSH)2015-04-18 00:00:00 Test Item Value Reference Range Interpretation Comments T3 UPTAKE (test code = 2817) 24.1 % T4 (THYROXINE) (test code = 2819) 10.0 UG/DL CALCULATED T7 (FTI) (test code = 2.41 2820) TSH (test code = 2821) 6.7 UIU/ML COMPREHENSIVE METABOLIC [id number] 00:00:00 Test Item Value Reference Range Interpretation Comments GLUCOSE (test code = 2217) 96 MG/DL BUN (test code = 2208) 8 MG/DL CREATININE (test code = 2214) 0.7 MG/DL eGFR AMER. (test code 116 ML/MIN/1.73 = 13439) eGFR NON- AMER. (test 96 ML/MIN/1.73 code = 37496) CALCULATED BUN/CREAT (test 11 RATIO code = 2235) SODIUM (test code = 2231) 138 MEQ/L POTASSIUM (test code = 2228) 4.5 MEQ/L CHLORIDE (test code = 2215) 102 MEQ/L CARBON DIOXIDE (test code = 21 MEQ/L 2205) CALCIUM (test code = 2209) 9.8 MG/DL PROTEIN, TOTAL (test code = 8.1 G/DL 2228) ALBUMIN (test code = 2201) 4.7 G/DL CALCULATED GLOBULIN (test 3.4 G/DL code = 2240) CALCULATED A/G RATIO (test 1.4 RATIO code = 2234) BILIRUBIN, TOTAL (test code = 0.5 MG/DL 2206) ALKALINE PHOSPHATASE (test 68 U/L code = 2204) SGOT (AST) (test code = 2218) 62 U/L SGPT (ALT) (test code = 2219) 89 U/L COMPREHENSIVE METABOLIC [id number] 00:00:00 Test Item Value Reference Range Interpretation Comments GLUCOSE (test code = 2217) 96 MG/DL BUN (test code = 2208) 8 MG/DL CREATININE (test code = 2214) 0.7 MG/DL eGFR AMER. (test code 116 ML/MIN/1.73 = 21703) eGFR NON- AMER. (test 96 ML/MIN/1.73 code = 13355) CALCULATED BUN/CREAT (test 11 RATIO code = 2235) SODIUM (test code = 2231) 138 MEQ/L POTASSIUM (test code = 2228) 4.5 MEQ/L CHLORIDE (test code = 2215) 102 MEQ/L CARBON DIOXIDE (test code = 21 MEQ/L 2205) CALCIUM (test code = 220) 9.8 MG/DL PROTEIN, TOTAL (test code = 8.1 G/DL 2228) ALBUMIN (test code = 220) 4.7 G/DL CALCULATED GLOBULIN (test 3.4 G/DL code = 2240) CALCULATED A/G RATIO (test 1.4 RATIO code = 2233) BILIRUBIN, TOTAL (test code = 0.5 MG/DL 2206) ALKALINE PHOSPHATASE (test 68 U/L code = 2203) SGOT (AST) (test code = 221) 62 U/L SGPT (ALT) (test code = 221) 89 U/L THYROID II PROFILE (T3U, T4, T7, TSH)2014-12-26 00:00:00 Test Item Value Reference Range Interpretation Comments T3 UPTAKE (test code = 2817) 24.1 % T4 (THYROXINE) (test code = 2819) 8.0 UG/DL CALCULATED T7 (FTI) (test code = 1.93 2820) TSH (test code = 2821) 4.9 UIU/ML THYROID II PROFILE (T3U, T4, T7, TSH)2014-12-26 00:00:00 Test Item Value Reference Range Interpretation Comments T3 UPTAKE (test code = 2817) 24.1 % T4 (THYROXINE) (test code = 2819) 8.0 UG/DL CALCULATED T7 (FTI) (test code = 1.93 2820) TSH (test code = 2821) 4.9 UIU/ML
[2022-06-28 00:24] LABS: Absolute Lymphocytes (CBC) 1.4 K/uL (0.7-4.9); Hematocrit 30.6 % (36.0-45.0); Lymphocytes % 42.8 % (15.3-44.8); MCV 101.4 fL (80-100); MPV 8.5 fL (7.6-11.3); RBC Red Blood Cell Count 3.02 M/uL (3.86-4.86)
[2022-06-28 00:43] LABS: BUN Blood Urea Nitrogen < 3 mg/dL (7-18); Bicarbonate 25 mmol/L (21-32); Glomerular Filtration Rate 114 ml/min (=/>90); Glucose Level 83 mg/dL (74-106); Sodium Level 134 mmol/L (136-145)
[2022-06-28 00:45] LABS: Potassium 2.7 mmol/L (3.5-5.1)
[2022-06-28 00:52] LABS: Barbiturates NEGATIVE (NEGATIVE); Benzodiazepines NEGATIVE (NEGATIVE); Cocaine NEGATIVE (NEGATIVE); METHAMPHETAM NEGATIVE (NEGATIVE); Methadone NEGATIVE (NEGATIVE); Opiates NEGATIVE (NEGATIVE); Phencyclidine NEGATIVE (NEGATIVE); THC Cannibis NEGATIVE (NEGATIVE)
[2022-06-28 01:08] LABS: Urine Specific Gravity/Preg 1.005 (1.005-1.030)
[2022-06-28] MEDS ORDERED: NA CHLORIDE 0.9% 500 ML ONE (01:58)
[2022-06-28] MEDS ORDERED: KCL 20 MEQ/100 mL IVPB 100 ML IV ONE (01:59)
[2022-06-28] MEDS ORDERED: THIAMINE 200 MG/2 ML INJ ONE (03:52)
[2022-06-28] MEDS ORDERED: NICOTINE 21 MG/PAT TD ONE (03:52)
[2022-06-28] MEDS ORDERED: MULTIVITAMINS 10 ML VIAL (INJ) IV ONE (03:53)
[2022-06-28] MEDS ORDERED: NA CHLORIDE 0.9% 1,000 ML ONE ×2 (03:53→06:53)
[2022-06-28] MEDS ORDERED: FOLIC ACID 5 MG/ML VIAL ONE (03:53)
[2022-06-28] MEDS ORDERED: IBUPROFEN 200 MG TAB PO ONE (04:41)
--- NOTE | 2022-06-28 07:19 | EDPHYS ---
Physician Documentation [facility] Name: Serina Shoemaker Age: 42 yrs Sex: Female : 1980 Arrival Date: 06/27/2022 Time: 23:24 Bed 2 Private MD: ED Physician Oh Montoya HPI: 06/28 04:08 This 42 yrs old Female presents to ER via EMS with complaints of Altered kdr mental status. 04:08 Patient presents to the ED via EMS. Patient was reportedly found on the ground at home. kdr Her significant other states that the patient may have fallen and hit her head on the ground. He said she was behind him when he turned around she was on the ground. On initial presentation the patient was clearly awake but refused to talk or cooperate with myself or the other ED staff. She otherwise had normal vital signs and did not evidence any reason for emergent intervention.. Onset: The symptoms/episode began/occurred just prior to arrival. Severity of symptoms: At their worst the symptoms were moderate in the emergency department the symptoms are unchanged. It is unknown whether or not the patient has had similar symptoms in the past. It is unknown whether or not the patient has recently seen a physician. 04:08 Patient's significant other states that the patient has been drinking for the past few kdr days. She did have a recent period where she stopped drinking for 4 to 5 days but then he states she went back to drinking. He states that she has been drinking all day.. 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 - Social history:: Smoking status: unknown Patient uses alcohol, patient/guardian reports chronic longstanding heavy alcohol consumption. - Immunization history: Last tetanus immunization: unknown. ROS: 04:08 Constitutional: Patient is uncooperative with exam initially kdr 04:08 Unable to obtain ROS due to altered mental status, patient being uncooperative. Exam: 04:08 Constitutional: This is a well developed, well nourished patient who is awake, alert, kdr and in no acute distress. Head/Face: Normocephalic, atraumatic. Eyes: Pupils equal round and reactive to light, extra-ocular motions intact. Lids and lashes normal. Conjunctiva and sclera are non-icteric and not injected. Cornea within normal limits. Periorbital areas with no swelling, redness, or edema. Neck: Trachea midline, no thyromegaly or masses palpated, and no cervical lymphadenopathy. Supple, full range of motion without nuchal rigidity, or vertebral point tenderness. No Meningismus. Chest/axilla: Normal chest wall appearance and motion. Nontender with no deformity. No lesions are appreciated. Cardiovascular: Regular rate and rhythm with a normal S1 and S2. No gallops, murmurs, or rubs. Normal PMI, no JVD. No pulse deficits. Respiratory: Lungs have equal breath sounds bilaterally, clear to auscultation and percussion. No rales, rhonchi or wheezes noted. No increased work of breathing, no retractions or nasal flaring. Abdomen/GI: Soft, non-tender, with normal bowel sounds. No distension or tympany. No guarding or rebound. No evidence of tenderness throughout. Back: No spinal tenderness. No costovertebral tenderness. Full range of motion. Skin: Warm, dry with normal turgor. Normal color with no rashes, no lesions, and no evidence of cellulitis. MS/ Extremity: Pulses equal, no cyanosis. Neurovascular intact. Full, normal range of motion. Psych: Awake, alert, with orientation to person, place and time. Behavior, mood, and affect are within normal limits. 04:08 Neuro: Orientation: unable to test, the patient refuses to cooperate, Motor: moves all fours, seizure activity, is not displayed by the patient. Vital Signs: 00:00 BP 104 / 72; Pulse 62; Resp 16; Temp 97.8(R); Pulse Ox 100% on R/A; Weight 57.15 kg (M);jb4 00:30 BP 101 / 76; Pulse 59; Resp 16; Pulse Ox 100% on R/A; jb4 01:00 BP 102 / 73; Pulse 72; Resp 14; Pulse Ox 100% on R/A; jb4 02:00 BP 92 / 64; Pulse 76; Resp 16; Pulse Ox 96% on R/A; jb4 03:00 BP 105 / 82; Pulse 88; Resp 16; Pulse Ox 97% on R/A; jb4 03:30 BP 105 / 71; Pulse 67; Resp 16; Pulse Ox 100% on R/A; jb4 04:30 BP 114 / 88; Pulse 84; Resp 16; Pulse Ox 99% ; ke1 04:30 Temp 98.2(TE); jb4 05:30 BP 94 / 61; Pulse 90; Resp 16; Pulse Ox 99% on R/A; jb4 06:15 BP 90 / 54; Pulse 96; Resp 16; Pulse Ox 98% on R/A; jb4 08:14 BP 104 / 79; Pulse 65; Resp 16; Temp 98.0(O); Pulse Ox 100% ; mm9 [place] Coma Score: 06/27 23:30 Eye Response: to pain(2). Verbal Response: none(1). Motor Response: withdraws from jb4 pain(4). Total: 7. 12/10 00:30 Eye Response: to voice(3). Verbal Response: none(1). Motor Response: withdraws from jb4 pain(4). Total: 8. 01:00 Eye Response: to voice(3). Verbal Response: none(1). Motor Response: obeys commands(6). jb4 Total: 10. 02:00 Eye Response: spontaneous(4). Verbal Response: none(1). Motor Response: obeys jb4 commands(6). Total: 11. 02:27 Eye Response: spontaneous(4). Verbal Response: confused(4). Motor Response: obeys jb4 commands(6). Total: 14. 03:00 Eye Response: spontaneous(4). Verbal Response: oriented(5). Motor Response: obeys jb4 commands(6). Total: 15. 03:30 Eye Response: spontaneous(4). Verbal Response: oriented(5). Motor Response: obeys jb4 commands(6). Total: 15. 06:15 Eye Response: spontaneous(4). Verbal Response: oriented(5). Motor Response: obeys jb4 commands(6). Total: 15. Trauma Score (Adult): 06/27 23:30 Eye Response: to pain(0); Verbal Response: none(0); Motor Response: withdraws from jb4 pain(1); Systolic BP: > 89 mm Hg(4); Respiratory Rate: 10 to 29 per min(4); [place] Score: 7; Trauma Score: 9 12 00:30 Eye Response: to voice(0); Verbal Response: none(0); Motor Response: withdraws from jb4 pain(1); Systolic BP: > 89 mm Hg(4); Respiratory Rate: 10 to 29 per min(4); [place] Score: 8; Trauma Score: 9 01:00 Eye Response: to voice(0); Verbal Response: none(0); Motor Response: obeys commands(2); jb4 Systolic BP: > 89 mm Hg(4); Respiratory Rate: 10 to 29 per min(4); [place] Score: 10; Trauma Score: 10 02:00 Eye Response: spontaneous(1); Verbal Response: none(0); Motor Response: obeys jb4 commands(2); Systolic BP: > 89 mm Hg(4); Respiratory Rate: 10 to 29 per min(4); [place] Score: 11; Trauma Score: 11 02:27 Eye Response: spontaneous(1); Verbal Response: confused(1); Motor Response: obeys jb4 commands(2); Systolic BP: > 89 mm Hg(4); Respiratory Rate: 10 to 29 per min(4); [place] Score: 14; Trauma Score: 12 03:00 Eye Response: spontaneous(1); Verbal Response: oriented(1); Motor Response: obeys jb4 commands(2); Systolic BP: > 89 mm Hg(4); Respiratory Rate: 10 to 29 per min(4); [place] Score: 15; Trauma Score: 12 03:30 Eye Response: spontaneous(1); Verbal Response: oriented(1); Motor Response: obeys jb4 commands(2); Systolic BP: > 89 mm Hg(4); Respiratory Rate: 10 to 29 per min(4); [place] Score: 15; Trauma Score: 12 06:15 Eye Response: spontaneous(1); Verbal Response: oriented(1); Motor Response: obeys jb4 commands(2); Systolic BP: > 89 mm Hg(4); Respiratory Rate: 10 to 29 per min(4); [place] Score: 15; Trauma Score: 12 MDM: 04:08 Data reviewed: vital signs, nurses notes, lab test result(s), radiologic studies. kdr Counseling: I had a detailed discussion with the patient and/or guardian regarding: the historical points, exam findings, and any diagnostic results supporting the discharge/admit diagnosis, lab results, radiology results. 07:18 Patient medically screened. kdr 06/27 23:29 Order name: CBC with Diff; Complete Time: 00:34 vc1 06/27 23:29 Order name: Type And Screen; Complete Time: 02:12 vc1 06/27 23:29 Order name: Basic Metabolic Panel; Complete Time: 01:06 kdr 06/27 23:29 Order name: CBC with Diff kdr 06/27 23:29 Order name: Type And Screen kdr 06/28 00:00 Order name: ETOH Level; Complete Time: 02:12 jb4 06/27 23:29 Order name: CT Traumagram (Head C Spine CAP W Con) vc1 06/28 00:00 Order name: UDS; Complete Time: 01:06 kdr 06/28 00:11 Order name: CREATININE WHOLE BLOOD; Complete Time: 00:34 EDMS 06/28 00:30 Order name: Urine --Ancillary (enter results); Complete Time: 02:12 ds4 06/27 23:29 Order name: Labs collected and sent; Complete Time: 00:27 kdr Administered Medications: 02:04 Drug: Potassium Chloride 20 mEq {Note: administered with 500ml on NS \T\ 250ml/hour.} jb4 Route: IV; Rate: calculated rate; Site: right antecubital; 03:49 Follow up: Response: No adverse reaction; IV Status: Completed infusion; IV Intake: jb4 600ml 04:05 Drug: Banana Bag - (NS 0.9% 1000 ml, foLIC Acid 1 mg, Thiamine 100 mg, Multivitamin 1 jb4 amp) Route: IV; Rate: calculated rate; Site: right antecubital; 04:05 Drug: Nicotine Patch 21 mg/24 hr 1 patches Route: Transdermal; Site: affected area; jb4 04:20 Drug: Motrin (ibuprofen) 600 mg Route: PO; jb4 05:59 Follow up: Response: No adverse reaction; Marked relief of symptoms; Pain is decreased jb4 06:30 Drug: NS 0.9% 1000 ml Route: IV; Rate: 1 bolus; Site: right antecubital; jb4 Disposition Summary: 06/28/22 07:18 Discharge Ordered Location: Home kdr Problem: an acute exacerbation kdr Symptoms: have improved kdr Condition: Fair kdr Diagnosis - Alcohol abuse kdr - Alcohol abuse with intoxication kdr Followup: kdr - With: Private Physician - When: 2 - 3 days - Reason: If symptoms return, Further diagnostic work-up, Recheck today's complaints, Continuance of care, Re-evaluation by your physician Discharge Instructions: - Discharge Summary Sheet kdr - Alcohol Intoxication, [id number] kdr - Alcohol Abuse and Dependence Information, Adult kdr Forms: - Medication Reconciliation Form kdr - Thank You Letter kdr Signatures: Dispatcher [employer] EDMS Oh Montoya MD MD kdr Inocente Goodrich RN RN jb4 Ann Marie Rg RN RN vc1 Corrections: (The following items were deleted from the chart) 00:27 06/27 23:29 Labs collected and sent ordered. vc1 jb4
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
[2022-06-28 18:07] VITALS: BP 104/79; TEMP 98; O2SAT 100
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
== END 2022-06-28 09:03 | disposition home or self-care (01) ==
LOC: ER 23:23
DX: F10.229 Alcohol dependence with intoxication, unspecified (principal); F32.A Depression, unspecified; Z88.0 Allergy status to penicillin; Z98.82 Breast implant status
CPT/HCPCS: 96365; 85025; 80048; 36415; 80320; 86900; 86850; 81025; 82565; 86901; 80307; 70450; 72125; 71260; 74177; 96375; 99285; 96366; Q9967; J3411; J3480; J7040; J7030 ×2

== ENCOUNTER 2023-05-18 21:36 | Emergency (ER) | payer BC, OTHER ==
--- OUTSIDE RECORDS SUMMARY | 2023-05-18 21:43 | XMS REPORT | Continuity of Care Document ---
:1980 Author Organization [facility] t Address [address] 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 without complicati complicati on on Allergies, Adverse Reactions, Alerts Allergy Allergy Status Severity Reaction(s) Onset Inactive Treating Comm ents Source Name Type Date Date Clinician Penicill Drug Active Anaphylaxis Uni vers in Allergy 2-06 ity of 00:00: [address] PENICILL DRUG Active High Anaphylaxis Uni vers IN INGREDI 2-06 ity of 00:00: [address] Penicill Propensi Active 2021-07 ins - ty to 1-16 CLASS adverse 00:00: reaction 00 to drug Unable DA [facility] 00:00: 00 Penicill DA Active U Unknown 2021-07 [facility] ins 0-14 00:00: 00 Penicill Propensi Active Other 2021-07 [facility] ins ty to 0-13 Health adverse 00:00: reaction 00 s to drug Penicill Propensi Active 0 ins ty to 3-19 adverse 00:00: reaction 00 to drug Social History Social Habit Start Date Stop Date Quantity Comments Source Gender identity Esequiel King alth Sexual orientation [facility] History of tobacco Smokes tobacco [facility] use daily History of Social 2023-05-03 2023-05-03 [facility] function 00:00:00 00:00:00 Exposure to 2022-08-15 2022-08-25 Not sure University of SARS-CoV-2 (event) 00:00:00 17:59:00 [facility] Alcohol Comment 2022-05-02 2022-05-02 2 24 packs of [facility] 00:00:00 00:00:00 beer/ day Tobacco use and 2022-05-02 2022-05-02 Smokeless [facility] alth exposure 00:00:00 00:00:00 tobacco non-user Alcohol intake 2022-05-02 2022-05-02 [facility] 00:00:00 00:00:00 of alcohol (finding) Sex Assigned At [birth year] Iraheta Fernando alth 00:00:00 00:00:00 Smoking Status Start Date Stop Date Source Tobacco smoking consumption [facility] Branch Smokes tobacco daily 2022-05-02 00:00:00 [facility] Medications Ordered Filled Start Stop Current Ordering Indication Dosage Frequency Signature Comments Components Source Medication Medication Date Date Medication? Clinician (SIG) Name Name lidocaine-e 2022- No 5mL 5 mL, Univ ers pinephrine 08-26 Intraderma it y of (XYLOCAINE 01:45: 01:45 l, ONCE, 1 [place] WITH 00 :00 dose, On Medical EPINEPHRINE 08/25/22 Br anch ) 1 at 1945, %-1:100,000 TEJA injection 5 mL doxycycline 2022- No 100mg 100 mg, U nivers hyclate 08-26- Oral, ity of (Vibramycin 01:00: 01[place]08 [place] capsule 00 :00 dose, On Medica l 100 mg Thu08/25/22 Branch at 1900, TEJA
Re ason for Anti-Infec tive: Documented Infection< br>Documen florentino Infection Site: Skin / Soft Tissue
Duration of Therapy: 7 days HYDROcodone 2022- No 1{tbl} 1 tablet, Univers -acetaminop 2-07 02-07 Oral, ity of hen (NORCO 01:00: 01:08 ONCE, 1 [place] 5) 5-325 mg 00 :00 dose, On Medi cameron tablet 1 Thu08/25/22 Branc h tablet at 1900, TEJA doxycycline Yes [id number] 100mg Take 1 Univers hyclate 100 2-06 capsule by it y of mg capsule 00:00: mouth in [place] as 00 the Medical morning Branch and 1 capsule in the evening. mupirocin 2 Yes [id number] Apply to Univers % ointment 2-06 area(s) 3 ity of 00:00: (three) [place] 00 times Medical daily. Branch HYDROcodone Yes [id number] 1{tbl} Take 1 Un sophia -acetaminop 2-06 tablet by ity of hen 5-325 00:00: mouth [place] mg tablet 00 every 4 Medical (four) Branch hours as needed for Pain (scale 7-10) for up to 12 doses. Indication s: acute pain LEVOTHYROXI 2021-07 No N TAB 25MCG 16 00:00: 00 SERTRALINE 2021-07 No TAB 25MG 16 00:00: 00 ibuprofen 2021-07- No 800mg 800 mg [facility] (MOTRIN) 05-02 (13.6 Health tablet 800 22:21: 00:21 mg/kg), mg 00 :00 Oral, ONCE, 1 dose, On Shelia 05/01/22 at 2221, STAT acetaminoph 2021-07- No 1000mg 1,000 mg [facility] en 05-02 (16.9 Health (TYLENOL) 22:21: 00:20 mg/kg), tablet 00 :00 Oral, 1,000 mg ONCE, 1 dose, On Thu05/01/22 at 2221, STAT ibuprofen 2021-07- No 800mg 800 mg [facility] (MOTRIN) 005-02 (13.6 Health tablet 800 22:21: 00:21 mg/kg), mg 00 :00 Oral, ONCE, 1 dose, On Shelia 05/01/22 at 2221, STAT acetaminoph 2021-07- No 1000mg 1,000 mg [facility] en 05-02 (16.9 Health (TYLENOL) 22:21: 00:20 mg/kg), tablet 00 :00 Oral, 1,000 mg ONCE, 1 dose, On Thu05/01/22 at 2221, STAT diazePAM 2021-07- No 5mg 5 mg [facility] (VALIUM) 005-01 (0.0847 Health tablet 5 mg 21:26: 22:18 mg/kg), 00 :00 Oral, ONCE, 1 dose, On Thu05/01/22 at 2126, STAT diazePAM 2021-07- No 5mg 5 mg [facility] (VALIUM) 05-01 (0.0847 Health tablet 5 mg :26: 22:18 mg/kg), 00 :00 Oral, ONCE, 1 dose, On Shelia 05/01/22 at 2126, STAT diazePAM 2021-07- No 5mg 5 mg, [facility] (VALIUM) 005-01 Oral, Health tablet 5 mg 13:04: 15:39 ONCE, 1 00 :00 dose, On Thu05/01/22 at 1305, STAT diazePAM 2021-07- No 5mg 5 mg, [facility] (VALIUM) 005-01 Oral, Health tablet 5 mg 13:04: 15:39 ONCE, 1 00 :00 dose, On Thu05/01/22 at 1305, STAT Dose 2015-0 No Unknown 1- 00:00: 00 Celexa 40 2014-0 No 1mg mg tablet 04-18 00:00: 00 levothyroxi 2014-0 No 1mcg ne 25 mcg - tablet 00:00: 00 levothyroxi 2014-0 No 1mcg ne 25 mcg 6-08 tablet 00:00: 00 levothyroxi 2014-0 No 1mcg ne 25 mcg - tablet 00:00: 00 Celexa 40 2014-0 No 1mg mg tablet 10-12 00:00: 00 levothyroxi 2014-0 No 1mcg ne 25 mcg - tablet 00:00: 00 Celexa 40 2014-0 No 1mg mg tablet 10-05 00:00: 00 Celexa 40 2014-0 No 1mg mg tablet 10-05 00:00: 00 naproxen 2014-0 No 1mg 500 mg 10-05 tablet 00:00: 00 Vital Signs Vital Name Observation Time Observation Value Comments Source Systolic blood 2022-08-26 01:42:32 122 mm[Hg] Univer sity [facility] Diastolic blood 2022-08-26 01:42:32 80 mm[Hg] [facility] 2022-08-26 01:42:32 63 /min [facility] Body temperature 2022-08-26 01:42:32 36.72 Abigail [facility] Respiratory rate 2022-08-26 01:42:32 16 /min [facility] Body height 2022-08-25 23:58:00 165.1 cm [facility] Body weight 2022-08-25 23:58:00 56.7 kg [facility] BMI 2022-08-25 23:58:00 20.80 kg/m2 [facility] Oxygen saturation in 2022-08-25 23:58:00 100 /min [facility] Arterial blood by [facility] Pulse oximetry Branch Systolic blood 2022-05-02 02:16:00 127 mm[Hg] [facility] pressure Diastolic blood 2022-05-02 02:16:00 93 mm[Hg] [facility] pressure Heart rate 2022-05-02 02:16:00 64 /min [facility] Body temperature 2022-05-02 02:16:00 36.78 [facility] Respiratory rate 2022-05-02 02:16:00 18 /min [facility] Oxygen saturation in 2022-05-02 02:16:00 100 /min [facility] Arterial blood by Pulse oximetry Body height 2022-05-01 13:04:00 165.1 cm [facility] Body weight 2022-05-01 13:04:00 58.968 kg [facility] BMI 2022-05-01 13:04:00 21.63 kg/m2 [facility] BP Systolic 2022-06-05 11:45:00 116 mm[Hg] BP Diastolic 2022-06-05 11:45:00 69 mm[Hg] Weight Measured 2022-06-05 11:45:00 126.80 pounds Height Measured 2022-06-05 11:45:00 65.00 inches Body Temperature 2022-06-05 11:45:00 97.60 degrees Heart Rate 2022-06-05 11:45:00 98.00 /min Respiratory Rate 2022-06-05 11:45:00 19.00 /min Weight Measured 2022-06-04 10:08:00 120.00 pounds Height Measured 2022-06-04 10:08:00 65.00 inches Body Temperature 2022-06-04 10:08:00 97.90 degrees Heart Rate 2022-06-04 10:08:00 68.00 /min Respiratory Rate 2022-06-04 10:08:00 16.00 /min BP Systolic 2022-06-04 10:08:00 117 mm[Hg] BP Diastolic 2022-06-04 10:08:00 86 mm[Hg] Oxygen saturation in 2022-05-02 02:16:00 100 /min [facility] Arterial blood by Pulse oximetry Systolic blood 2022-05-02 02:16:00 127 mm[Hg] [facility] pressure Diastolic blood 2022-05-02 02:16:00 93 mm[Hg] [facility] pressure Heart rate 2022-05-02 02:16:00 64 /min [facility] Body temperature 2022-05-02 02:16:00 36.78 Abigail [facility] Respiratory rate 2022-05-02 02:16:00 18 /min [facility] Body height 2022-05-01 13:04:00 165.1 cm [facility] Body weight 2022-05-01 13:04:00 58.968 kg [facility] BMI 2022-05-01 13:04:00 21.63 kg/m2 [facility] BP Systolic 2015-09-19 08:51:00 129 mm[Hg] BP [...] /min Respiratory Rate 2015-01-04 10:33:00 18.00 /min BP Systolic 2014-12-25 09:28:00 105 mm[Hg] BP Diastolic 2014-12-25 09:28:00 80 mm[Hg] Weight Measured 2014-12-25 09:28:00 209.40 pounds Height Measured 2014-12-25 09:28:00 64.00 inches Body Temperature 2014-12-25 09:28:00 Heart Rate 2014-12-25 09:28:00 76.00 /min Respiratory Rate 2014-12-25 09:28:00 20.00 /min BP Systolic 2014-10-12 11:36:00 117 mm[Hg] BP [...] Procedure Date / Time Performed Performing Clinician Sourc e [place] INCISION & DRAINAGE 2022-08-26 01:33:00 Olivier Raya [facility] ABSCESS SIMPLE/SINGLE Medical Br anch NOTICE OF PRIVACY 2022-08-25 23:53:16 Doctor Unassigned, No [facility] PRACTICES Name Medical Branch CONSENT/REFUSAL FOR 2022-08-25 23:52:28 Doctor Unassigned, No Un [facility] DIAGNOSIS AND Name Medical Branch TREATMENT CONSULT CLINICAL CASE 2022-05-02 02:38:33 [facility] MANAGEMENT (RN/SW) CONSULT CLINICAL CASE 2022-05-02 02:38:33 [facility] MANAGEMENT (RN/SW) BASIC METABOLIC PANEL 2022-05-01 14:03:00 [facility]FF 2022-05-01 14:03:00 [facility] CBC 2022-05-01 14:03:00 [facility] LIVER PROFILE 2022-05-01 14:03:00 [facility] LIPASE 2022-05-01 14:03:00 [facility] BASIC METABOLIC PANEL 2022-05-01 14:03:00 Saji Bustamante [facility] Health CBC/DIFF 2022-05-01 14:03:00 [facility] LIPASE 2022-05-01 14:03:00 [facility] LIVER PROFILE 2022-05-01 14:03:00 [facility] CBC 2022-05-01 14:03:00 Saji Bustamante Heal 12 LEAD EK 2022-05-01 13:56:36 Nicki Osborne h 12 LEAD EK 2022-05-01 13:56:36 Nicki Osborne Plan of Care Planned Activity Planned Date Details Comments Source Future Scheduled Test 2023-04-19 IMM Influenza Seasonal [facility] 00:00:00 (>/= 19 yrs) [code = IMM Influenza Seasonal (>/= 19 yrs)] Future Scheduled Test 2023-04-19 IMM Influenza Seasonal [facility] 00:00:00 (>/= 19 yrs) [code = IMM Influenza Seasonal (>/= 19 yrs)] Future Scheduled Test 2023-03-20 IMM Influenza Seasonal [facility] 00:00:00 (>/= 19 yrs) [code = IMM Influenza Seasonal (>/= 19 yrs)] Future Scheduled Test 2023-03-20 IMM Influenza Seasonal [facility] 00:00:00 (>/= 19 yrs) [code = IMM Influenza Seasonal (>/= 19 yrs)] Future Scheduled Test 2022-04-19 IMM Influenza Seasonal [facility] 00:00:00 (>/= 19 yrs) [code = IMM Influenza Seasonal (>/= 19 yrs)] Future Scheduled Test 2020 Breast Cancer Scrn [facility] 00:00:00 (Yearly) [code = Breast Cancer Scrn (Yearly)] Future Scheduled Test 2020 Breast Cancer Scrn [facility] 00:00:00 (Yearly) [code = Breast Cancer Scrn (Yearly)] Future Scheduled Test 2020 Breast Cancer Scrn [facility] 00:00:00 (Yearly) [code = Breast Cancer Scrn (Yearly)] Future Scheduled Test 2020 Breast Cancer Scrn [facility] 00:00:00 (Yearly) [code = Breast Cancer Scrn (Yearly)] Future Scheduled Test 2020 Breast Cancer Scrn [facility] 00:00:00 (Yearly) [code = Breast Cancer Scrn (Yearly)] Future Scheduled Test 2010 Screening for malignant [facility] 00:00:00 neoplasm of cervix (procedure) [code = 875643911] Future Scheduled Test 2010 Screening for malignant [facility] 00:00:00 neoplasm of cervix (procedure) [code = 122792284] Future Scheduled Test 2010 Screening for malignant [facility] 00:00:00 neoplasm of cervix (procedure) [code = 039321687] Future Scheduled Test 2010 Screening for malignant [facility] 00:00:00 neoplasm of cervix (procedure) [code = 250854174] Future Scheduled Test 2010 Screening for malignant [facility] 00:00:00 neoplasm of cervix (procedure) [code = 557162730] Future Scheduled Test 2010 Screening for malignant [facility] 00:00:00 neoplasm of cervix (procedure) [code = 805966101] Future Scheduled Test 2010 Screening for malignant [facility] 00:00:00 neoplasm of cervix (procedure) [code = 973881567] Future Scheduled Test 2001 Screening for malignant [facility] 00:00:00 neoplasm of cervix (procedure) [code = 145794688] Future Scheduled Test 2001 Screening for malignant [facility] 00:00:00 neoplasm of cervix (procedure) [code = 544253655] Future Scheduled Test 2001 Screening for malignant [facility] 00:00:00 neoplasm of cervix (procedure) [code = 775539465] Future Scheduled Test 1986 Imm Pneumococcal 0-64 [facility] 00:00:00 (1 - PCV) [code = Imm Pneumococcal 0-64 (1 - PCV)] Future Scheduled Test 1986 Imm Pneumococcal 0-64 [facility] 00:00:00 (1 - PCV) [code = Imm Pneumococcal 0-64 (1 - PCV)] Future Scheduled Test 1986 Imm Pneumococcal 0-64 [facility] 00:00:00 (1 - PCV) [code = Imm Pneumococcal 0-64 (1 - PCV)] Future Scheduled Test 1986 Imm Pneumococcal 0-64 [facility] 00:00:00 (1 - PCV) [code = Imm Pneumococcal 0-64 (1 - PCV)] Future Scheduled Test 1986 Imm Pneumococcal 0-64 [facility] 00:00:00 (1 - PCV) [code = Imm Pneumococcal 0-64 (1 - PCV)] Future Scheduled Test 1980 COVID-19 Vaccine (#1) [facility] 00:00:00 [code = COVID-19 Vaccine (#1)] Future Scheduled Test 1980 COVID-19 Vaccine (#1) [facility] 00:00:00 [code = COVID-19 Vaccine (#1)] Future Scheduled Test 1980 COVID-19 Vaccine (#1) [facility] 00:00:00 [code = COVID-19 Vaccine (#1)] Future Scheduled Test 1980 COVID-19 Vaccine (#1) [facility] 00:00:00 [code = COVID-19 Vaccine (#1)] Future Scheduled Test 1980 COVID-19 Vaccine (#1) [facility] 00:00:00 [code = COVID-19 Vaccine (#1)] Goal Plan of Care Note [code = 80273-9] Goal Plan of Care Note [code = 29596-0] Goal Plan of Care Note [code = 13075-0] Goal Plan of Care Note [code = 87591-1] Goal Plan of Care Note [code = 42191-8] Goal Plan of Care Note [code = 98915-2] Goal Plan of Care Note [code = 16141-6] Encounters Start End Encounter Admission Attending Care Care Encounter Source Date/Time Date/Time Type Type Clinicians Facility Department ID 2023-05-13 2023-05-13 Outpatient [facility] 023 Harvinder 17:43:46 17:43:46 1025 F Josh 2023-03-25 2023-03-25 Outpatient [facility] 023 Harvinder 09:19:33 09:19:33 [id number] F Josh 2022-08-25 2022-08-25 Emergency X OLIVIER RAYA [facility] ERT [id number] [facility] 18:00:00 19:55:00 OLIVIER RAYA [facility] 2022-08-25 2022-08-25 Emergency Cristopher [facility] [id number] Univers 18:00:00 19:55:00 Olivier LEATHA [id number] i [facility] [id number] [facility] [id number] [address] 2022-08-25 2022-08-25 Emergency X OLIVIER RAYA [facility] ERT [id number] Univers 18:00:00 19:55:[address] [facility] 2022-06-05 2022-06-05 Outpatient [facility] 022 Harvinder 11:37:53 11:37:53 1117 F Josh 2022-06-05 2022-06-05 Outpatient [id number] 00:00:00 00:00:00 Visit [id number] ffece2 2022-05-02 2022-05-02 Emergency Emergency Jassi Quezada [facility] JM0 [id number] [facility] 15:38:00 15:38:00 63 2022-05-02 2022-05-02 Emergency [facility] [id number] [facility] 15:38:00 15:38:00 63 2022-05-02 2022-05-02 Emergency [facility] [id number] [facility] 02:15:00 04:25:00 [facility] [id number] [facility] .[id number] Results Test Description Test Time Test Comments [...] code = NRBCP) 0 % Comprehensive Metabolic [id number] 16:00:00 Test Item Value Reference Range Interpretation [...] 67 U/L 46-116 N = ALP) Ethanol [id number] 16:00:00 Test Item Value Reference Range Interpretation Comments Ethanol (test code 277 mg/dL The pharm acological = ETOH) response to blo od alcohol levels mayvary from individual to i ndividual. The fatal corwin ntrationhas been reported t o be >400mg/dL. UA, Urinalysis Rflx Cult/[id number] 15:55:00 Test Item Value Reference Range Interpretation Comments Color,Urine (test code = UCOL) Yellow Yellow Clarity,Urine (test code = Clear Clear UCLAR) Ph, Urine (test code = UPH) 5.5 5.0-9.0 N Specific [place],Urine (test <= 1.005 1.005-1.030 N code = [...] Negative mg/dL Negative code = ULEU) Drug Screen,[id number] 15:55:00 Test Item Value Reference Range Interpretation [...] = HCGU) Negative Negative Coronavirus PCR, COVID19 [id number] 13:57:00 Test Item Value Reference Range Interpretation Comments Coronavirus PCR, For use under Emergency COVID19 Rapid (test Use Authorization (EUA) code = SARSCOV2) only. Coronavirus PCR, Reference Range: COVID19 Rapid (test Negative code = WCEXNLI44.1) SARS-CoV-2 PCR Result: Negative by RT-PCR (test code = SARS-CoV-2 PCR Result:) COVID-19 Status: [id number] Lead [id number] 13:56:3612 LEAD EKG FOR [facility] Test Date: 3826-07-75Trl Name: [facility] Department: 5520Patient ID: [id number] Room: Gender: F Parts Data Writer: [id number]: 1980 Requested By: NICKI OSBORNE Order Number: [id number] Reading MD: Evy HERNANDEZ M.D. MeasurementsIntervals [place] Rate: 96 P: 72PR: 148 QRS: 78QRSD: 91 T: 75QT: 367 QTc: 420 Interpretive StatementsSINUS RHYTHMElectronically Signed On 05-01-2022 13:59:18 CDT by Evy HERNANDEZ M.D.[place] [address] Lead [id number] 13:56:3612 LEAD EKG FOR [facility] Test Date: 6186-55-62Dxn Name: [facility] Department: 5520Patient ID: [id number] Room: Gender: F Parts Data Writer: [id number]: 1980 Requested By: NICKI OSBORNE Order Number: [id number] Reading MD: Evy HERNANDEZ M.D. MeasurementsIntervals [place] Rate: 96 P: 72PR: 148 QRS: 78QRSD: 91 T: 75QT: 367 QTc: 420 Interpretive StatementsSINUS RHYTHMElectronically Signed On 05-01-2022 13:59:18 CDT by Evy HERNANDEZ M.D.[facility] Iewabb43 Lead [id number] 13:56:3612 LEAD EKG FOR [facility] Test Date: 1229-99-63Erl Name: [facility] Department: 5520Patient ID: [id number] Room: Gender: F Parts Data Writer: [id number]: 1980 Requested By: NICKI OSBORNE Order Number: [id number] Reading MD: Evy HERNANDEZ M.D. MeasurementsIntervals [place] Rate: 96P: 72PR: 148 QRS: 78QRSD: 91 T: 75QT: 367 QTc: 420 Interpretive StatementsSINUS RHYTHMElectronically Signed On 05-01-2022 13:59:18 CDT by Evy HERNANDEZ M.D.[facility] Kukrhm30 Lead [id number] 13:56:3612 LEAD EKG FOR [facility] Test Date: 1231-64-27Mwa Name: [facility] Department: 5520Patient ID: [id number] Room: Gender: F Parts Data Writer: [id number]: 1980 Requested By: NICKI OSBORNE Order Number: [id number] Reading MD: Evy HERNANDEZ M.D. MeasurementsIntervals [place] Rate: 96 P: 72PR: 148 QRS: 78QRSD: 91 T: 75QT: 367 QTc: 420 Interpretive StatementsSINUS RHYTHMElectronically Signed On 05-01-2022 13:59:18 CDT by Evy HERNANDEZ M.D.[facility] Aryceu14 Lead [id number] 13:56:3612 LEAD EKG FOR [facility] Test Date: 8529-31-36Ynx Name: [facility] Department: 5520Patient ID: [id number] Room: Gender: F Parts Data Writer: [id number]: 1980 Requested By: NICKI OSBORNE Order Number: [id number] Reading MD: Evy HERNANDEZ M.D. MeasurementsIntervals [place] Rate: 96P: 72PR: 148 QRS: 78QRSD: 91 T: 75QT: 367 QTc: 420 Interpretive StatementsSINUS RHYTHMElectronicallySigned On 05-01-2022 13:59:18 CDT by Evy HERNANDEZ M.D.[facility] PROFILE (T3U, T4, T7, TSH)2015-04-18 [...] code = 2821) 6.7 UIU/ML COMPREHENSIVE METABOLIC [id number] 00:00:00 Test Item Value Reference Range Interpretation Comments GLUCOSE (test code = 2217) 96 MG/DL BUN (test code = 2208) 8 MG/DL CREATININE (test code = 2214) 0.7 MG/DL eGFR AMER. (test code 116 ML/MIN/1.73 = 85387) eGFR NON- AMER. (test 96 ML/MIN/1.73 code = 62737) CALCULATED BUN/CREAT (test 11 RATIO code = [...] code = 2219) 89 U/L COMPREHENSIVE METABOLIC [id number] 00:00:00 Test Item Value Reference Range Interpretation Comments GLUCOSE (test code = 2217) 96 MG/DL BUN (test code = 2208) 8 MG/DL CREATININE (test code = 2214) 0.7 MG/DL eGFR AMER. (test code 116 ML/MIN/1.73 = 02052) eGFR NON- AMER. (test 96 ML/MIN/1.73 code = 81622) CALCULATED BUN/CREAT (test 11 RATIO code = [...] (ALT) (test code = 2219) 89 U/L THYROID II PROFILE (T3U, T4, [...]
[2023-05-18] MEDS ORDERED: MORPHINE 2 MG/ML SYR ONE (22:24)
[2023-05-18] MEDS ORDERED: ONDANSETRON 4 MG/2 ML VIAL ONE (22:24)
[2023-05-18 22:43] LABS: Absolute Lymphocytes (CBC) 1.2 K/uL (0.7-4.9); Lymphocytes % 31.5 % (15.3-44.8); MPV 7.6 fL (7.6-11.3); Platelets 175 thou/uL (152-406); RBC Red Blood Cell Count 3.43 M/uL (3.86-4.86)
[2023-05-18 22:45] LABS: Specific Gravity < 1.005 (1.005-1.030)
[2023-05-18 22:48] LABS: Specific Gravity < 1.005 (1.005-1.030); Urine Bacteria None Seen /HPF (<20); Urine Bilirubin NEGATIVE (Negative); Urine Blood Negative (Negative); Urine Clarity Turbid (Clear); Urine Color Colorless (Yellow); Urine Crystals Unidentified Few /HPF (None Seen); Urine Glucose NEGATIVE (Negative); Urine Protein NEGATIVE (Negative); Urine RBC <5 /HPF (None Seen); Urine Urobilinogen Normal (Normal)
[2023-05-18 22:52] LABS: Protime INR 1.05
[2023-05-18 22:54] LABS: Barbiturates NEGATIVE (NEGATIVE); Benzodiazepines NEGATIVE (NEGATIVE); Cocaine NEGATIVE (NEGATIVE); METHAMPHETAM NEGATIVE (NEGATIVE); Opiates NEGATIVE (NEGATIVE); Phencyclidine NEGATIVE (NEGATIVE); THC Cannibis NEGATIVE (NEGATIVE)
[2023-05-18 22:56] LABS: Methadone ND (NEGATIVE)
[2023-05-18 22:59] LABS: Albumin 3.4 g/dL (3.4-5.0); Bilirubin Direct 0.3 mg/dL (0-0.2); Bilirubin Indirect, Calculated 0.6 mg/dL (0.2-0.8); Bilirubin Total 0.9 mg/dL (0.2-1.0); Potassium 3.3 mEq/L (3.5-5.1); Troponin High Sensitivity 3.3 pg/mL (<58.9)
[2023-05-18] MEDS ORDERED: ASPIRIN 81 MG CHEWABLE TABLET ONE (23:31)
[2023-05-18] MEDS ORDERED: POTASSIUM 25 MEQ EFFERV TAB ONE (23:31)
[2023-05-18] MEDS ORDERED: KETOROLAC 30 MG/ML INJ ONE (23:31)
--- NOTE | 2023-05-18 23:40 | EDPHYS ---
Physician Documentation [facility] Name: Serina Shoemaker Age: 42 yrs Sex: Female : 1980 Arrival Date: 05/18/2023 Time: 21:36 Bed 20 Private MD: ED Physician Silvestre Douglass HPI: 05/18 22:05 This 42 yrs old Female presents to ER via Ambulatory with complaints of Chest cp Pain. 22:05 The patient or guardian reports chest pain that is located primarily in the substernal cp area. 22:05 Onset: 4 week(s) ago. The pain does not radiate. cp 22:05 Patient is a 42-year-old female with past medical history significant for depression, cp anxiety and alcoholism who presents to the emergency room with complaints of substernal chest pain that has been off and on for the past 4 weeks. Patient does admit she has been under increased stress and unable to go to work due to the pain and anxiety, she reports that she is currently homeless. She denies any exertional chest pain and admits that she has not been sleeping well and that the recent change from Celexa to Zoloft has not been helpful to control her anxiety. She reports she stopped taking the Zoloft because it made her too drowsy when she would take it in the morning. Patient does report that her father had a heart attack in his 50s. 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 - Social history:: Smoking status: Patient reports the use of cigarette tobacco products, unknown amount. ROS: 22:10 Constitutional: Negative for body aches, chills, fever, poor PO intake, cp 22:10 ENT: Negative for drainage from ear(s), ear pain, sore throat, difficulty swallowing, cp difficulty handling secretions, 22:10 Cardiovascular: Negative for chest pain, edema, palpitations, 22:10 Respiratory: Negative for cough, shortness of breath, wheezing, 22:10 Abdomen/GI: Negative for abdominal pain, vomiting, diarrhea, constipation, 22:10 Back: Negative for pain at rest, pain with movement, 22:10 Neuro: Negative for altered mental status, dizziness, headache, numbness, syncope, near syncope, weakness, 22:10 All other systems are negative, Exam: 22:05 ECG was reviewed by the Attending Physician. cp 22:15 Constitutional: The patient appears in no acute distress, alert, awake, cp non-diaphoretic, non-toxic, well developed, well nourished, 22:15 Head/Face: Normocephalic, atraumatic. cp 22:15 Eyes: Periorbital structures: appear normal, Conjunctiva: normal, no exudate, no injection, Sclera: no appreciated abnormality, Lids and lashes: appear normal, bilaterally, 22:15 ENT: External ear(s): are unremarkable, Nose: is normal, Mouth: Lips: moist, Oral mucosa: pink and intact, moist, Posterior pharynx: is normal, airway is patent, no erythema, no exudate, 22:15 Neck: ROM/movement: is normal, is supple, without pain, no range of motions limitations, 22:15 Chest/axilla: Inspection: normal, Palpation: is normal, no crepitus, no tenderness, 22:15 Cardiovascular: Rate: normal, Rhythm: regular, Heart sounds: murmur, not appreciated, Edema: is not appreciated, JVD: is not appreciated, 22:15 Respiratory: the patient does not display signs of respiratory distress, Respirations: normal, no use of accessory muscles, no retractions, labored breathing, is not present, Breath sounds: are clear throughout, no decreased breath sounds, no stridor, no wheezing, 22:15 Abdomen/GI: Inspection: Bowel sounds: active, all quadrants, Palpation: abdomen is soft and non-tender, in all quadrants, 22:15 Back: pain, is absent, ROM is normal, 22:15 Skin: cellulitis, is not appreciated, no rash present. 22:15 Neuro: Orientation: to person, place \T\ time. Mentation: is normal, Cerebellar function: is grossly normal, Motor: moves all fours, strength is normal, Sensation: is normal, Vital Signs: 21:46 BP 124 / 96; Pulse 71; Resp 16; Temp 97.8; Pulse Ox 100% ; Weight 56.25 kg; Height 5 bp ft. 5 in. ; 22:01 BP 132 / 81; Pulse 94; Resp 15; Pulse Ox 98% on R/A; nw1 22:47 BP 122 / 78; Pulse 71; Resp 16; Pulse Ox 100% on R/A; nw1 05/19 00:03 BP 100 / 73; Pulse 77; Resp 16; Pulse Ox 100% on R/A; nw1 05/18 21:46 Body Mass Index 20.63 (56.25 kg, 165.1 cm) bp Kimberley Coma Score: 05/18 22:01 Eye Response: spontaneous(4). Motor Response: obeys commands(6). Verbal Response: nw1 oriented(5). Total: 15. MDM: 21:56 Patient medically screened. cp 23:35 Data reviewed: vital signs, nurses notes, lab test result(s), EKG, radiologic studies, cp plain films. 23:38 The patient was given aspirin in the Emergency Department. I considered the following discharge prescriptions or medication management in the emergency department Medications were administered in the Emergency Department. See MAR. 23:38 Differential diagnosis: acute myocardial infarction, acute pericarditis, anxiety, cp cholecystitis, Cholelithiasis pancreatitis, pericarditis, pleurisy, pneumonia, pneumothorax, pulmonary embolus, stable angina, thoracic aortic disection, unstable angina. Independent interpretation of the following test(s) in the Emergency Department EKG: See my EKG interpretation above. Test considered but Not performed: CT: chest. Counseling: I had a detailed discussion with the patient and/or guardian regarding the historical points, exam findings, and any diagnostic results supporting the discharge/admit diagnosis, lab results, radiology results, the need for outpatient follow up, a family practitioner. Response to treatment: the patient's symptoms have markedly improved after treatment, and as a result, I will discharge patient. 05/18 22:04 Order name: Basic Metabolic Panel; Complete Time: 23:02 cp 05/18 23:02 Interpretation: Normal except: NA 134; K 3.3; BUN 3. cp 05/18 22:04 Order name: CBC with Diff; Complete Time: 22:58 cp 05/18 22:58 Interpretation: Normal except: WBC 3.80; RBC 3.43; HCT 34.0; MN% 16.7. cp 05/18 22:04 Order name: D-Dimer; Complete Time: 22:58 cp 05/18 22:59 Interpretation: Reviewed. cp 05/18 22:04 Order name: LFT's; Complete Time: 23:02 cp 05/18 23:03 Interpretation: Normal except: BILID 0.3; GLOB 4.6; A/G 0.7. cp 05/18 22:04 Order name: Magnesium; Complete Time: 23:02 cp 05/18 22:04 Order name: NT PRO-BNP; Complete Time: 23:02 cp 05/18 22:04 Order name: PT-INR; Complete Time: 22:58 cp 05/18 22:04 Order name: Troponin HS; Complete Time: 23:02 cp 05/18 23:03 Interpretation: Reviewed. cp 05/18 22:04 Order name: UDS; Complete Time: 22:58 cp 05/18 22:59 Interpretation: Reviewed. cp 05/18 22:04 Order name: PREGU; Complete Time: 22:58 cp 05/18 22:59 Interpretation: Reviewed. cp 05/18 22:04 Order name: Urinalysis W/Microscopic; Complete Time: 22:58 cp 05/18 22:04 Order name: Lipase; Complete Time: 23:02 cp 05/18 22:04 Order name: XRAY Chest (1 view) cp 05/18 22:04 Order name: US Abdomen Limited cp 05/18 22:04 Order name: EKG; Complete Time: 22:04 cp 05/18 22:04 Order name: Cardiac monitoring; Complete Time: 22:06 cp 05/18 22:04 Order name: EKG - Nurse/Tech; Complete Time: 22:06 cp 05/18 22:04 Order name: IV Saline Lock; Complete Time: 22:34 cp 05/18 22:04 Order name: Labs collected and sent; Complete Time: 22:34 cp 05/18 22:04 Order name: O2 Per Protocol; Complete Time: 22:06 cp 05/18 22:04 Order name: O2 Sat Monitoring; Complete Time: 22:06 cp EC:05 Rate is 69 beats/min. Rhythm is regular. NE interval is normal. QRS interval is normal. cp QT interval is normal. T waves are Inverted in leads aVL, aVR. Interpreted by me. Reviewed by me. Administered Medications: 22:33 Drug: morphine IVP or IV 2 mg IVP once over 4 mins Route: IVP; Infused Over: 4 mins; nw Site: right antecubital; 05/19 00:03 Follow up: Response: No adverse reaction 00:03 Follow up: Response: No adverse reaction; Pain is decreased 05/18 22:33 Drug: Ondansetron IVP 4 mg IVP once; over 2 minutes Route: IVP; Site: right antecubital;05/19 00:02 Follow up: Response: No adverse reaction 00:03 Follow up: Response: No adverse reaction 05/18 23:20 CANCELLED (Physician Discretion): [id number] mg IVP once cp 23:25 Drug: Aspirin PO Chewable Tablet 324 mg PO once; 81 mg tablets x 4 Route: PO; 05/19 00:02 Follow up: Response: No adverse reaction 05/18 23:25 Drug: Potassium PO Effervescent Tablet 50 mEq PO once; dissolve in 4 ounces of water or nw juice Route: PO; 05/19 00:02 Follow up: Response: No adverse reaction 05/18 23:27 Not Given (Physician Discretion): ativan1 mg IVP once cp 23:29 Drug: Ketorolac IVP 15 mg IVP once Route: IVP; Site: right antecubital; nw05/19 00:02 Follow up: Response: No adverse reaction 05/18 23:30 Drug: LORazepam PO 1 mg PO once Route: PO; 05/19 00:02 Follow up: Response: Anxiety decreased Disposition: 04:01 Co-signature as Attending Physician, Silvestre Douglass MD I agree with the assessment sp4 and plan of care. I reviewed the patient's care provided by the Advanced Practice Provider and agree with the diagnosis and treatment plan. Disposition Summary: 05/18/23 23:39 Discharge Ordered Notes: Location: Home cp Problem: new cp Symptoms: have improved cp Condition: Stable cp Diagnosis - Chest pain, unspecified cp - Anxiety disorder, unspecified cp - Other depressive episodes cp Followup: cp - With: Private Physician - When: 2 - 3 days - Reason: Recheck today's complaints Discharge Instructions: - Discharge Summary Sheet cp - Nonspecific Chest Pain, Adult cp - Aspirin and Your Heart cp - Generalized Anxiety Disorder, Adult cp - Managing Stress, Adult cp - Managing Anxiety, Adult cp Forms: - Medication Reconciliation Form cp - Thank You Letter cp - Antibiotic Education cp - Prescription Opioid Use cp - Patient Portal Instructions cp - Leadership Thank You Letter cp Prescriptions: - Ativan 0.5 mg Oral tablet - take 1 tablet ORAL route every 8-12 hours As needed; 15 tablet; Refills: 0, cp Product Selection Permitted Addendum: 05/20/2023 01:56 Addendum: normal rate, normal rhythm. VR:69, NE interval 152 ms, QRS duration 100 ms, c p QT 432 ms.normal sinus rhythm, negative for STEMI. Signatures: Dispatcher [employer] EDMS Harjinder Yepez PA PA cp Peltier, Brian, ANDREY RN bp Silvestre Douglass MD MD sp4 Rosalie Alexander RN RN nw1 Corrections: (The following items were deleted from the chart) 05/18 23:20 23:02 Ketorolac IVP 15 mg IVP once ordered. cp cp
--- NOTE | 2023-05-18 23:40 | ER ---
Nurse's Notes [facility] Name: Serina Shoemaker Age: 42 yrs Sex: Female : 1980 Arrival Date: 05/18/2023 Time: 21:36 Bed 20 Private MD: Diagnosis: Chest pain, unspecified;Anxiety disorder, unspecified;Other depressive episodes Presentation: 05/18 21:46 Chief complaint: Patient states: INTERMITTENT SUBSTERNAL CHEST PAIN x4 WK. Coronavirus bp screen: At this time, the client does not indicate any symptoms associated with coronavirus-19. Ebola Screen: No symptoms or risks identified at this time. Initial Sepsis Screen: Does the patient meet any 2 criteria? No. Patient's initial sepsis screen is negative. Does the patient have a suspected source of infection? No. Patient's initial sepsis screen is negative. Risk Assessment: Do you want to hurt yourself or someone else? Patient reports no desire to harm self or others. Onset of symptoms is unknown. 21:46 Method Of Arrival: Ambulatory bp 21:46 Acuity: PAYAL 3 bp Triage Assessment: 21:47 General: Appears distressed, Behavior is cooperative, appropriate for age, anxious. bp Pain: Complains of pain in chest. Cardiovascular: Reports chest pain. 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 - Social history:: Smoking status: Patient reports the use of cigarette tobacco products, unknown amount. Screenin:01 [facility] ED Fall Risk Assessment (Adult) History of falling in the last 3 months, nw1 including since admission No falls in past 3 months (0 pts) Confusion or Disorientation No (0 pts) Intoxicated or Sedated No (0 pts) Impaired Gait No (0 pts) Mobility Assist Device Used No (0 pt) Altered Elimination No (0 pt) Score/Fall Risk Level 0 - 2 = Low Risk Oriented to surroundings, Maintained a safe environment, Educated pt \\T\\ family on fall prevention, incl call for assistance when getting out of bed, Assessed \\T\\ reinforced patient's understanding of fall precautions, Provided non-skid footwear, Hourly rounding (assess needs \\T\\ fall precautionary measures) done, Used ambulatory aids as needed (educated on \\T\\ assisted with). Abuse screen: Denies threats or abuse. Denies injuries from another. Nutritional screening: No deficits noted. Tuberculosis screening: No symptoms or risk factors identified. Assessment: 22:01 General: Appears in no apparent distress. uncomfortable, well groomed, well developed, nw1 well nourished, Behavior is calm, cooperative, appropriate for age. Pain: Complains of pain in mid-sternal area Pain does not radiate. Pain began "2 weeks ago". Neuro: No deficits noted. Cardiovascular: Reports chest pain, nausea, Heart tones present Capillary refill < 3 seconds Rhythm is sinus rhythm Chest pain began "2 weeks ago" is aggravated by stress. Respiratory: No deficits noted. GI: Reports RLQ pain when palpated. "been there a year". : No signs and/or symptoms were reported regarding the genitourinary system. Musculoskeletal: No deficits noted. Vital Signs: 21:46 BP 124 / 96; Pulse 71; Resp 16; Temp 97.8; Pulse Ox 100% ; Weight 56.25 kg; Height 5 bp ft. 5 in. ; 22:01 BP 132 / 81; Pulse 94; Resp 15; Pulse Ox 98% on R/A; nw1 22:47 BP 122 / 78; Pulse 71; Resp 16; Pulse Ox 100% on R/A; nw1 05/19 00:03 BP 100 / 73; Pulse 77; Resp 16; Pulse Ox 100% on R/A; nw1 05/18 21:46 Body Mass Index 20.63 (56.25 kg, 165.1 cm) bp Kimberley Coma Score: 05/18 22:01 Eye Response: spontaneous(4). Motor Response: obeys commands(6). Verbal Response: nw1 oriented(5). Total: 15. ED Course: 21:41 Patient arrived in ED. mr 21:42 Harjinder Yepez PA is PHCP. cp 21:42 Silvestre Douglass MD is Attending Physician. cp 21:47 Triage completed. bp 21:47 Arm band placed on. bp 21:59 Rosalie Alexander, RN is Primary Nurse. nw1 22:01 Patient has correct armband on for positive identification. Placed in gown. Bed in low nw1 position. Call light in reach. Side rails up X2. Adult w/ patient. Provided Education on: POC. Client placed on continuous cardiac and pulse oximetry monitoring. NIBP monitoring applied. Door closed. Noise minimized. Warm blanket given. 22:01 No provider procedures requiring assistance completed. Patient maintains SpO2 nw1 saturation greater than 95% on room air. 22:34 Lipase Sent. nw1 22:34 Urinalysis W/Microscopic Sent. nw1 22:34 PREGU Sent. nw1 22:34 UDS Sent. nw1 22:34 XRAY Chest (1 view) Sent. nw1 22:34 Basic Metabolic Panel Sent. nw1 22:34 CBC with Diff Sent. nw1 22:34 D-Dimer Sent. nw1 22:34 LFT's Sent. nw1 22:34 Magnesium Sent. nw1 22:34 NT PRO-BNP Sent. nw1 22:34 PT-INR Sent. nw1 22:34 Troponin HS Sent. nw1 22:34 Inserted saline lock: 20 gauge in right antecubital area, using aseptic technique. nw1 Blood collected. Missed attempt(s): 20 gauge in right forearm. Bleeding controlled, band aid applied, catheter tip intact. 22:47 XRAY Chest (1 view) In Process Unspecified. EDMS 22:52 US Abdomen Limited In Process Unspecified. EDMS 05/19 00:05 IV discontinued, intact, bleeding controlled, No redness/swelling at site. Pressure nw1 dressing applied. Administered Medications: 05/18 22:33 Drug: morphine IVP or IV 2 mg IVP once over 4 mins Route: IVP; Infused Over: 4 mins; nw1 Site: right antecubital; 05/19 00:03 Follow up: Response: No adverse reaction nw1 00:03 Follow up: Response: No adverse reaction; Pain is decreased nw1 05/18 22:33 Drug: Ondansetron IVP 4 mg IVP once; over 2 minutes Route: IVP; Site: right antecubital;nw1 05/19 00:02 Follow up: Response: No adverse reaction nw1 00:03 Follow up: Response: No adverse reaction nw1 05/18 23:20 CANCELLED (Physician Discretion): [id number] mg IVP once cp 23:25 Drug: Aspirin PO Chewable Tablet 324 mg PO once; 81 mg tablets x 4 Route: PO; 05/19 00:02 Follow up: Response: No adverse reaction 05/18 23:25 Drug: Potassium PO Effervescent Tablet 50 mEq PO once; dissolve in 4 ounces of water or nw1 juice Route: PO; 05/19 00:02 Follow up: Response: No adverse reaction 05/18 23:27 Not Given (Physician Discretion): ativan1 mg IVP once cp 23:29 Drug: Ketorolac IVP 15 mg IVP once Route: IVP; Site: right antecubital; 05/19 00:02 Follow up: Response: No adverse reaction 05/18 23:30 Drug: LORazepam PO 1 mg PO once Route: PO; nw05/19 00:02 Follow up: Response: Anxiety decreased nw Medication: 05/18 22:01 VIS not applicable for this client. nw1 Outcome: 23:39 Discharge ordered by MD. murphy 05/19 00:04 Discharged to home with family, nw1 Condition: improved Discharge instructions given to patient, family, Instructed on discharge instructions, follow up and referral plans. medication usage, Demonstrated understanding of instructions, follow-up care, medications, Prescriptions given X 1, 00:05 Patient left the ED. nw1 Signatures: Dispatcher [employer] EDMS Courtney Montgomery, Chemo Mclain mr Harjinder Yepez PA PA cp Peltier, Brian, ANDREY RN Rosalie Rodriguez RN RN nw1
[2023-05-18] MEDS ORDERED: LORAZEPAM 1 MG TABLET ONE (23:42)
[2023-05-19 00:34] VITALS: TEMP 97.8
[2023-05-19 00:41] VITALS: O2SAT 100
[2023-05-19 00:42] VITALS: BP 100/73
--- NOTE | 2023-05-19 07:49 | EKG ---
Test Date: 2023-05-18 Test Time: 21:57:46 Er Physician: VEE MEASUREMENT RESULTS: Intervals: Rate: 69 WA: 152 QRSD: 100 QT: 432 QTc: 462 [place]: P: 48 WA: 152 QRS: 79 T: 81 INTERPRETIVE STATEMENTS: Normal sinus rhythm Normal ECG Compared to ECG 04/30/2022 15:03:27 No significant changes Electronically Signed On 05-19-23 07:48:29 CDT by Pantera Quick
--- NOTE | 2023-05-19 14:56 | RAD REPORT ---
EXAM DESCRIPTION: RAD - Chest Single View - 05/18/2023 10:45 pm CLINICAL HISTORY: 42 years Female, CHEST PAIN COMPARISON: Chest x-ray report from 09/19/2019. The image was not available for review. TECHNIQUE: Single portable x-ray view of the chest performed on 05/18/2023 at 10:33 PM FINDINGS: The lungs are well expanded and are clear. There is no evidence of a pneumothorax. The cardiac silhouette is normal in size and configuration. The mediastinal contours are normal. No acute osseous abnormality is identified. No acute soft tissue abnormalities are seen. Lines and tubes: None. Free air: None IMPRESSION: No evidence of acute intrathoracic disease. Electronically signed by: Viola Ventura DO 05/18/2023 10:58 PM CDT Due to temporary technical issues with the PACS/Fluency reporting system, reports are being signed by the in house radiologists without review as a courtesy to insure prompt reporting. The interpreting radiologist is fully responsible for the content of the report.
--- NOTE | 2023-05-19 14:59 | RAD REPORT ---
EXAM DESCRIPTION: US - Abdomen Exam Limited - 05/18/2023 10:50 pm CLINICAL HISTORY: 42 years Female RUQ pain TECHNIQUE: Limited sonographic imaging of the right upper quadrant was performed on 05/18/2023 at 10 : 39 PM. COMPARISON: CT abdomen and pelvis performed on 08/15/2021. FINDINGS: The gallbladder is well distended and normal in appearance.There is no evidence of choleli thiasis. The gallbladder wall measures approximately 2 mm. There is no evidence of pericholecystic fl uid. The common bile duct measures approximately 3-4 mm in diameter. There is no evidence of biliary ductal dilatation. IMPRESSION: Normal right upper quadrant ultrasound. Electronically signed by: Viola Ventura DO 05/18/2023 11:24 PM CDT Due to temporary technical issues with the PACS/Fluency reporting system, reports are being signed by the in house radiologists without review as a courtesy to insure prompt reporting. The interpreting radiologist is fully responsible for the content of the report.
== END 2023-05-19 00:05 | disposition home or self-care (01) ==
LOC: ER 21:36
DX: F41.9 Anxiety disorder, unspecified (principal); F32.89 Other specified depressive episodes; F10.20 Alcohol dependence, uncomplicated; Z88.0 Allergy status to penicillin
CPT/HCPCS: 93005; 85025; 81001; 80048; 36415; 83735; 81025; 85610; 85379; 80076; 84484; 83690; 83880; 80307; 71045; 76705; 96375; 96374; 99285; J2270; J2405

== ENCOUNTER 2023-06-06 16:16 | Observation (INO) | payer BC, OTHER ==
--- OUTSIDE RECORDS SUMMARY | 2023-06-06 16:19 | XMS REPORT | Continuity of Care Document ---
:1980 Author Organization [facility] t Address [address] [facility] [address] [place] [address] Care Team Providers Name Role Phone EVETTE THOMSON Primary Care Physician Unavailable OLIVIER RAYA Attending Clinician Unavailable OLIVIER RAYA Attending Clinician Unavailable Jassi Quezada Attending Clinician Unavailable Jamison GUILLEN, Court Attending Clinician Payers Payer Name Policy Type Policy Number Effective Date Expiration Date Tania green [place] [employer] [id number] 2022 00:00:00 Problems Condition Condition Condition Status Onset Resolution Last Treating Co mments Source Name Details Category Date Date Treatment Clinician Date Alcohol 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[facility] 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 without complicati complicati on on Allergies, Adverse Reactions, Alerts Allergy Allergy Status Severity Reaction(s) Onset Inactive Treating Comm ents Source Name Type Date Date Clinician [facility] DRUG Active High Anaphylaxis Uni vers IN INGREDI 2-06 ity of 00:00: [address] Penicill Drug Active Anaphylaxis Uni vers in Allergy 2-06 ity of 00:00: [address] Unable DA Active U 2021-07 [facility] to 0-14 Assess 00:00: 00 [facility] DA Active U Unknown 2021-07 [facility] ins 0-14 00:00: 00 [facility] Propensi Active Other 2021-07 [facility] ty to 0-13 Health adverse 00:00: reaction 00 s to drug Social History Social Habit Start Date Stop Date Quantity Comments Source History of tobacco Smokes tobacco [facility] use daily Gender identity Esequiel King alth Sexual orientation [facility] History of Social 2023-05-23 2023-05-23 [facility] function 00:00:00 00:00:00 Exposure to 2022-08-15 2022-08-25 Not sure University of SARS-CoV-2 (event) 00:00:00 17:59:00 [facility] Tobacco use and 2022-05-02 2022-05-02 Smokeless Esequiel King alth exposure 00:00:00 00:00:00 tobacco non-user Alcohol Comment 2022-05-02 2022-05-02 2 24 packs of [facility] 00:00:00 00:00:00 beer/ day Alcohol intake 2022-05-02 2022-05-[address] [facility] 00:00:00 00:00:00 of alcohol (finding) Sex Ass[birth year] At [birth year] Esequiel King alth 00:00:00 00:00:00 Smoking Status Start Date Stop Date Source Tobacco smoking consumption [facility] Smokes tobacco daily 2022-05-02 00:00:00 [facility] Medications Ordered Filled Start Stop Current Ordering Indication Dosage Frequency Signature Comments Components Source Medication Medication Date Date Medication? Clinician (SIG) Name Name lidocaine-e 2022- No 5mL 5 mL, Univ ers pinephrine 08-26 Intraderma it y of (XYLOCAINE 01:45: 01:45 l, ONCE, 1 [place] WITH 00 :00 dose, On Medical EPINEPHRINE 08/25/22 Br anch ) 1 at 1945, %-1:100,000 TEJA injection 5 mL doxycycline 2022- No 100mg 100 mg, U nivers hyclate 08-26 Oral, ity of (Vibramycin 01:00[place] 01[place]08 [place] capsule 00 :00 dose, On Medica l 100 mg 08/25/22 Branch at 1900, TEJA
Re ason for Anti-Infec tive: Documented Infection< br>Documen florentino Infection Site: Skin / Soft Tissue
Duration of Therapy: 7 days HYDROcodone 2022- No 1{tbl} 1 tablet, Univers -acetaminop 2-07 02-07 Oral, ity of hen (NORCO 01:00: 01:08 ONCE, 1 [place] 5) 5-325 mg 00 :00 dose, On Medi cameron tablet 1 Mon 08/25/22 Branc h tablet at 1900, TEJA doxycycline Yes [id number] 100mg Take 1 Univers hyclate 100 2-06 capsule by it y of mg capsule 00:00: mouth in [place] 00 the Medical morning Branch and 1 capsule in the evening. mupirocin 2 Yes [id number] Apply to Univers % ointment 2-06 area(s) 3 ity of 00:00: (three) [place] 00 times Medical daily. Branch HYDROcodone Yes [id number] 1{tbl} Take 1 Un sophia -acetaminop 2-06 tablet by ity of hen 5-325 00:00: mouth [place] mg tablet 00 every 4 Medical (four) Branch hours as needed for Pain (scale 7-10) for up to 12 doses. Indication s: acute pain ibuprofen 2021-07 No 800mg 800 mg [facility] (MOTRIN) 005-02 (13.6 Health tablet 800 22:21: 00:21 mg/kg), mg 00 :00 Oral, ONCE, 1 dose, On Shelia 05/01/22 at 2221, STAT acetaminoph 2021-07 No 1000mg 1,000 mg [facility] en 05-02 (16.9 Health (TYLENOL) 22:21: 00:20 mg/kg), tablet 00 :00 Oral, 1,000 mg ONCE, 1 dose, On [place] 05/01/22 at 2221, STAT ibuprofen 2021-07 No 800mg 800 mg Myai is (MOTRIN) 005-02 (13.6 Health tablet 800 22:21: 00:21 mg/kg), mg 00 :00 Oral, ONCE, 1 dose, On [place] 05/01/22 at 2221, STAT acetaminoph 2021-07- No 1000mg 1,000 mg [facility] en 14 (16.9 Health (TYLENOL) 22:21: 00:20 mg/kg), tablet 00 :00 Oral, 1,000 mg ONCE, 1 dose, On [place] 05/01/22 at 2221, STAT diazePAM 2021-07- No 5mg 5 mg [facility] (VALIUM) 0-05-01 (0.0847 Health tablet 5 mg 21:26: 22:18 mg/kg), 00 :00 Oral, ONCE, 1 dose, On [place] 05/01/22 at 2126, STAT diazePAM 2021-07- No 5mg 5 mg [facility] (VALIUM) 0-05-01 (0.0847 Health tablet 5 mg 21:26: 22:18 mg/kg), 00 :00 Oral, ONCE, 1 dose, On [place] 05/01/22 at 2126, STAT diazePAM 2021-07- No 5mg 5 mg, [facility] (VALIUM) 005-01 Oral, Health tablet 5 mg 13:04: 15:39 ONCE, 1 00 :00 dose, On [place] 05/01/22 at 1305, STAT diazePAM 2021-07- No 5mg 5 mg, [facility] (VALIUM) 005-01 Oral, Health tablet 5 mg 13:04: 15:39 ONCE, 1 00 :00 dose, On [facility] 05/01/22 at 1305, STAT Vital Signs Vital Name Observation Time Observation Value Comments Source Systolic blood 2022-08-26 01:42:32 122 mm[facility]Hg[facility] Diastolic blood 2022-08-26 01:42:32 80 mm[Hg] [facility] Heart rate 2022-08-26 01:42:32 63 /min [facility] Body temperature 2022-08-26 01:42:32 36.72 Abigail [facility] Respiratory rate 2022-08-26 01:42:32 16 /min [facility] Body height 2022-08-25 23:58:00 165.1 cm [facility] Body weight 2022-08-25 23:58:00 56.7 kg [facility] BMI 2022-08-25 23:58:00 20.80 kg/m2 [facility] Medical Branch Oxygen saturation in 2022-08-25 23:58:00 100 /min [facility] of Arterial blood by [facility] Pulse oximetry Branch Systolic blood 2022-05-02 02:16:00 127 mm[Hg] [facility] pressure Diastolic blood 2022-05-02 02:16:00 93 mm[Hg] [facility] pressure Heart rate 2022-05-02 02:16:00 64 /min [facility] Body temperature 2022-05-02 02:16:00 36.78 Abigail [facility] Respiratory rate 2022-05-02 02:16:00 18 /min [facility] Oxygen saturation in 2022-05-02 02:16:00 100 /min [facility] Arterial blood by Pulse oximetry Body height 2022-05-01 13:04:00 165.1 cm [facility] Body weight 2022-05-01 13:04:00 58.968 kg [facility] BMI 2022-05-01 13:04:00 21.63 kg/m2 [facility] Systolic blood 2022-05-02 02:16:00 127 mm[Hg] [facility] pressure Diastolic blood 2022-05-02 02:16:00 93 mm[Hg] [facility] pressure Heart rate 2022-05-02 02:16:00 64 /min [facility] Body temperature 2022-05-02 02:16:00 36.78 Abigail [facility] Respiratory rate 2022-05-02 02:16:00 18 /min [facility] Oxygen saturation in 2022-05-02 02:16:00 100 /min [facility] Arterial blood by Pulse oximetry Body height 2022-05-01 13:04:00 165.1 cm [facility] Body weight 2022-05-01 13:04:00 58.968 kg [facility] BMI 2022-05-01 13:04:00 21.63 kg/m2 [facility] Procedures Procedure Date / Time Performed Performing Clinician Sourc e FL INCISION & DRAINAGE 2022-08-26 01:33:00 Olivier Raya [facility] ABSCESS SIMPLE/SINGLE Medical Br anch NOTICE OF PRIVACY 2022-08-25 23:53:16 Doctor Unassigned, No [facility] PRACTICES Name Medical Branch CONSENT/REFUSAL FOR 2022-08-25 23:52:28 Doctor Unassigned, No [facility] Name [facility] Branch TREATMENT CONSULT CLINICAL CASE 2022-05-02 02:38:33 [facility] MANAGEMENT (RN/SW) CONSULT CLINICAL CASE 2022-05-02 02:38:33 [facility] MANAGEMENT (RN/SW) BASIC METABOLIC PANEL 2022-05-01 14:03:00 [facility] CBC/DIFF 2022-05-01 14:03:00 [facility] CBC 2022-05-01 14:03:00 [facility] LIVER PROFILE 2022-05-01 14:03:00 [facility] LIPASE 2022-05-01 14:03:00 [facility] BASIC METABOLIC PANEL 2022-05-01 14:03:00 [facility] CBC/DIFF 2022-05-01 14:03:00 [facility] LIPASE 2022-05-01 14:03:00 [facility] LIVER PROFILE 2022-05-01 14:03:00 [facility] CBC 2022-05-01 14:03:00 Saji B[facility] 12 LEAD EKG 2022-05-01 13:56:36 Nicki Osborne h 12 LEAD EK 2022-05-01 13:56:36 Nicki Osborne h Plan of Care Planned Activity Planned Date Details Comments Source Future Scheduled Test 2023-04-19 IMM Influenza Seasonal [facility] 00:00:00 (>/= 19 yrs) [code = IMM Influenza Seasonal (>/= 19 yrs)] Future Scheduled Test 2023-04-19 IMM Influenza Seasonal [facility] 00:00:00 (>/= 19 yrs) [code = IMM Influenza Seasonal (>/= 19 yrs)] Future Scheduled Test 2023-03-20 IMM Influenza Seasonal [facility] 00:00:00 (>/= 19 yrs) [code = [...] 00:00:00 neoplasm of cervix (procedure) [code = 272845448] Future Scheduled Test 2010 Screening for malignant [facility] 00:00:00 neoplasm of cervix (procedure) [code = 753929258] Future Scheduled Test 2010 Screening for malignant [facility] 00:00:00 neoplasm of cervix (procedure) [code = 916742239] Future Scheduled Test 2010 Screening for malignant [facility] 00:00:00 neoplasm of cervix (procedure) [code = 239179377] Future Scheduled Test 2010 Screening for malignant [facility] 00:00:00 neoplasm of cervix (procedure) [code = 587455075] Future Scheduled Test 2010 Screening for malignant [facility] 00:00:00 neoplasm of cervix (procedure) [code = 388509155] Future Scheduled Test 2010 Screening for malignant [facility] 00:00:00 neoplasm of cervix (procedure) [code = 676179024] Future Scheduled Test 2010 Screening for malignant [facility] 00:00:00 neoplasm of cervix (procedure) [code = 154512108] Future Scheduled Test 2010 Screening for malignant [facility] 00:00:00 neoplasm of cervix (procedure) [code = 165562733] Future Scheduled Test 2001 Screening for malignant [facility] 00:00:00 neoplasm of cervix (procedure) [code = 780382081] Future Scheduled Test 2001 Screening for malignant [facility] 00:00:00 neoplasm of cervix (procedure) [code = 782473020] Future Scheduled Test 2001 Screening for malignant [facility] 00:00:00 neoplasm of cervix (procedure) [code = 233599067] Future Scheduled Test 2001 Screening for malignant [facility] 00:00:00 neoplasm of cervix (procedure) [code = 669491258] Future Scheduled Test 2001 Screening for malignant [facility] 00:00:00 neoplasm of cervix (procedure) [code = 385095806] Future Scheduled Test 1986 Imm Pneumococcal 0-64 [facility] 00:00:00 (1 - PCV) [code = Imm Pneumococcal 0-64 (1 - PCV)] Future Scheduled Test 1986 Imm Pneumococcal 0-64 [facility] 00:00:00 (1 - PCV) [code = Imm Pneumococcal 0-64 (1 - PCV)] Future Scheduled Test 1986 Imm Pneumococcal 0-64 [facility] 00:00:00 (1 - PCV) [code = Imm Pneumococcal 0-64 (1 - PCV)] Future Scheduled Test 1986 Imm Pneumococcal 0-64 [facility] 00:00:00 (1 - PCV) [code = Imm Pneumococcal 0-64 (1 - PCV)] Future Scheduled Test 1986 Imm Pneumococcal 0-64 [facility] 00:00:00 (1 - PCV) [code = Imm Pneumococcal 0-64 (1 - PCV)] Future Scheduled Test 1986 Imm Pneumococcal 0-64 [facility] 00:00:00 (1 - PCV) [code = Imm Pneumococcal 0-64 (1 - PCV)] Future Scheduled Test 1986 Imm Pneumococcal 0-64 [facility] 00:00:00 (1 - PCV) [code = Imm Pneumococcal 0-64 (1 - PCV)] Future Scheduled Test 1980 COVID-19 Vaccine (#1) [facility] 00:00:00 [code = COVID-19 Vaccine (#1)] Future Scheduled Test 1980 COVID-19 Vaccine (#1) [facility] 00:00:00 [code = COVID-19 Vaccine (#1)] Future Scheduled Test 1980 COVID-19 Vaccine (#1) [facility] 00:00:00 [code = COVID-19 Vaccine (#1)] Future Scheduled Test 1980 COVID-19 Vaccine (#1) [facility] 00:00:00 [code = COVID-19 Vaccine (#1)] Future Scheduled Test 1980 COVID-19 Vaccine (#1) [facility] 00:00:00 [code = COVID-19 Vaccine (#1)] Future Scheduled Test 1980 COVID-19 Vaccine (#1) [facility] 00:00:00 [code = COVID-19 Vaccine (#1)] Future Scheduled Test 1980 COVID-19 Vaccine (#1) [facility] 00:00:00 [code = COVID-19 Vaccine (#1)] Encounters Start End Encounter Admission Attending Care Care Encounter Source Date/Time Date/Time Type Type Clinicians Facility Department ID 2022-08-25 2022-08-25 Emergency X OLIVIER RAYA [facility] ERT [id number] Univers 18:00:00 19:55:00 OLIVIER RAYA [facility] 2022-08-25 2022-08-25 Emergency OLIVIER VASQUEZ [facility] ERT [id number] Univers 18:00:00 19:55:00 OLIVIER RAYA [facility] 2022-08-25 2022-08-25 Emergency Cristopher [facility] [id number] [facility] 18:00:00 19:55:00 Olivier ZHANG [id number] i ty of [place] [id number] [facility] [id number] [facility] 084 Branch 2022-05-02 2022-05-02 Emergency Emergency Jassi Quezada [facility] [id number] [facility] 15:38:00 15:38:00 63 2022-05-02 2022-05-02 Emergency [facility] [id number] [facility] 15:38:00 15:38:00 63 2022-05-02 2022-05-02 Emergency [facility] [id number] [facility] 02:15:00 04:25:00 [facility] [id number] [facility] .[id number] Results Test Description Test Time Test Comments Results Result Comments Source Ethanol Level 2022-05-02 16:00:00 Test Item Value Reference Range Interpretation Comme nts Ethanol (test code = ETOH) 277 mg/dL T he pharmacological response to blood alcohol levels mayvary from individual to individual. The fatal concentrationhas been reported to be >400mg/dL. Complete Blood Count Auto [id number] 16:00:00 Test Item Value Reference Range Interpretation Comments White Blood Count (test code = 3.5 x10 3/uL 4.4-10.5 L WBCT) Red Blood Count (test code = 4.05 x10 6/uL 3.75-5.20 N RBC) Hemoglobin (test code = HGBT) 14.3 g/dL 12.2-14.8 N Hematocrit (test code = HCTT) 40.0 % 36.5-44.4 N Mean Corpuscular Volume (test 98.80 fL 80.00-100.00 N code = MCV) Mean Corpuscular Hemoglobin 35.3 pg 27.0-32.5 H (test code = MCH) Mean Corpuscular HGB Conc 35.80 g/dL 32.00-37.50 N (test code = MCHC) RDW Coefficient of Variation 11.7 % 11.5-14.5 N (test code = RDWCV) Platelet Count (test code = 170.0 x10 3/uL 140.0-440.0 N PLTT) Mean Platelet Volume (test 10.3 fL code = MPV) Immature Granulocytes % (Auto) 0.3 % 0.0-5.0 N (test code = IMMGRAN%) Neutrophils % (Auto) (test 34.2 % 36.0-70.0 L code = NE%) Lymphocytes % (Auto) (test 52.1 % 12.0-44.0 H code = LY%) Monocytes % (Auto) (test code 10.5 % 0.0-11.0 N = MO%) Eosinophils % (Auto) (test 2.3 % 0.0-7.0 N code = EO%) Basophils % (Auto) (test code 0.6 % 0.0-2.0 N = BA%) Immature Granulocytes # (Auto) 0.01 x10 3/uL (test code = IMMGRAN#) Neutrophils # (Auto) (test 1.2 x10 3/uL 1.6-7.4 L code = NE#) Lymphocytes # (Auto) (test 1.84 x10 3/uL 0.50-4.60 N code = LY#) Monocytes # (Auto) (test code 0.37 x10 3/uL 0.00-1.20 N = MO#) Eosinophils # (Auto) (test 0.08 x10 3/uL 0.00-0.74 N code = EO#) Basophils # (Auto) (test code 0.02 x10 3/uL 0.00-0.21 N = BA#) nRBC Abs (test code = NRBCA) 0 nRBC Pct (test code = NRBCP) 0 % Comprehensive Metabolic [id number] 16:00:00 Test Item Value Reference Range Interpretation [...] code 67 U/L 46-116 N = ALP) HCG, Urine Qual (LAB)2022-05-02 15:55:00 Test Item Value Reference Range Interpretation Comments HCG, Urine, Qual (test code = HCGU) Negative Negative UA, Urinalysis Rflx Cult/[id number] 15:55:00 Test Item Value Reference Range Interpretation Comments Color,Urine (test code = UCOL) Yellow Yellow Clarity,Urine (test code = Clear Clear UCLAR) Ph, Urine (test code = UPH) 5.5 5.0-9.0 N Specific [place],Urine (test <= 1.005 1.005-1.030 N code = [...] Negative mg/dL Negative code = ULEU) Drug Screen,[id number] 15:55:00 Test Item Value Reference Range Interpretation [...] Urine (test Negative Negative code = UPROP) Coronavirus PCR, COVID19 [id number] 13:57:00 Test Item Value Reference Range Interpretation Comments Coronavirus PCR, For use under Emergency COVID19 Rapid (test Use Authorization (EUA) code = SARSCOV2) only. Coronavirus PCR, Reference Range: COVID19 Rapid (test Negative code = GKNJEFU59.1) SARS-CoV-2 PCR Result: Negative by RT-PCR (test code = SARS-CoV-2 PCR Result:) COVID-19 Status: [id number] Lead [id number] 13:56:3612 LEAD EKG FOR [facility] Test Date: 6908-12-55Sno Name: GERARD TAYLOR Department: 5520Patient ID: [id number] Room: Gender: F Crm Manager: [id number]: 1980 Requested By: NICKI OSBORNE Order Number: [id number] Paulina MD: Evy HERNANDEZ M.D. MeasurementsIntervals Alfred Rate: 96 P: 72PR: 148 QRS: 78QRSD: 91 T: 75QT: 367 QTc: 420 Interpretive StatementsSINUS RHYTHMElectronically Signed On 05-01-2022 13:59:18 CDT by Evy HERNANDEZ M.D.[facility] [id number] Lead [id number] 13:56:3612 LEAD EKG FOR [facility] Test Date: 8018-69-71Rzs Name: [facility] Department: 5520Patient ID: [id number] Room: Gender: F Crm Manager: [id number]: 1980 Requested By: NICKI OSBORNE Order Number: [id number] Reading MD: Evy HERNANDEZ M.D. MeasurementsIntervals Alfred Rate: 96 P: 72PR: 148 QRS: 78QRSD: 91 T: 75QT: 367 QTc: 420 Interpretive StatementsSINUS RHYTHMElectronically Signed On 05-01-2022 13:59:18 CDT by Evy HERNANDEZ M.D.[facility] [id number] Lead [id number] 13:56:3612 LEAD EKG FOR [facility] Test Date: [id number] Name: [facility] Department: 5520Patient ID: [id number] Room: Gender: F Crm Manager: [id number]: 1980 Requested By: NICKI OSBORNE Order Number: [id number] Reading MD: Evy HERNANDEZ M.D. MeasurementsIntervals Alfred Rate: 96P: 72PR: 148 QRS: 78QRSD: 91 T: 75QT: 367 QTc: 420 Interpretive StatementsSINUS RHYTHMElectronically Signed On 05-01-2022 13:59:18 CDT by Evy HERNANDEZ M.D.[facility] [id number] Lead [id number] 13:56:3612 LEAD EKG FOR [facility] Test Date: [id number] Name: [facility] Department: 5520Patient ID: [id number] Room: Gender: F Crm Manager: [id number]: 1980 Requested By: NICKI OSBORNE Order Number: [id number] Reading MD: Evy HERNANDEZ M.D. MeasurementsIntervals Alfred Rate: 96P: 72PR: 148 QRS: 78QRSD: 91 T: 75QT: 367 QTc: 420 Interpretive StatementsSINUS RHYTHMElectronically Signed On 05-01-2022 13:59:18 CDT by Evy HERNANDEZ M.D.[facility] [id number] Lead [id number] 13:56:3612 LEAD EKG FOR [facility] Test Date: [id number] Name: GERARD TAYLOR Department: 5520Patient ID: [id number] Room: Gender: Crm Manager: [id number]: 1980 Requested By: NICKI OSBORNE Order Number: [id number] Reading MD: Evy HERNANDEZ M.D. MeasurementsIntervals Alfred Rate: 96 P: 72PR: 148 QRS: 78QRSD: 91 T: 75QT: 367 QTc: 420 Interpretive StatementsSINUS RHYTHMElectronically Signed On 05-01-2022 13:59:18 CDT by Evy HERNANDEZ M.D.[facility] Center[facility]
[2023-06-06 16:59] LABS: Absolute Lymphocytes (CBC) 1.4 K/uL (0.7-4.9); Hematocrit 37.6 % (36.0-45.0); Lymphocytes % 43.3 % (15.3-44.8); MCV 100.7 fL (80-100); Platelets 254 thou/uL (152-406); RBC Red Blood Cell Count 3.73 M/uL (3.86-4.86)
[2023-06-06] MEDS ORDERED: NA CHLORIDE 0.9% 1,000 ML ONE ×2 (17:07→19:23)
[2023-06-06] MEDS ORDERED: ONDANSETRON 4 MG/2 ML VIAL ONE (17:07)
[2023-06-06] MEDS ORDERED: FAMOTIDINE 20 MG/2 ML VIAL IV ONE (17:18)
[2023-06-06] MEDS ORDERED: ASPIRIN 81 MG CHEWABLE TABLET ONE (17:18)
[2023-06-06] MEDS ORDERED: THIAMINE 200 MG/2 ML INJ ONE ×2 (17:18→19:21)
[2023-06-06 17:24] LABS: Protime INR 1.05
[2023-06-06 17:30] LABS: ALT/SGPT 34 U/L (13-56); AST/SGOT 50 U/L (15-37); Albumin 3.7 g/dL (3.4-5.0); Alkaline Phosphatase 50 U/L (45-117); Bicarbonate 23 mEq/L (21-32); Bilirubin Direct 0.2 mg/dL (0-0.2); Bilirubin Indirect, Calculated 0.3 mg/dL (0.2-0.8); Bilirubin Total 0.5 mg/dL (0.2-1.0); Glomerular Filtration Rate 87 ml/min (=/>90); Glucose Level 97 mg/dL (74-106); Magnesium 2.1 mg/dL (1.6-2.4); NT PRO-BNP 9 pg/mL (<125); Potassium 3.4 mEq/L (3.5-5.1); Protein, Total 8.6 g/dL (6.4-8.2); Sodium Level 141 mEq/L (136-145)
[2023-06-06 17:31] LABS: BUN Blood Urea Nitrogen < 3 mg/dL (7-18); Troponin High Sensitivity < 3.0 pg/mL (<58.9)
--- NOTE | 2023-06-06 17:35 | ER ---
Nurse's Notes [facility] Name: Serina Shoemaker Age: 43 yrs Sex: Female : 1980 Arrival Date: 06/06/2023 Time: 16:16 Bed 15 Private MD: Diagnosis: Chest pain, unspecified;Chest pain on breathing;Weakness;Alcohol abuse with intoxication;Hypokalemia Presentation: 06/06 16:27 Chief complaint: Patient states: chest tightness, shortness of breath, "feels like I tm6 can't breathe". Coronavirus screen: Vaccine status: Patient reports receiving the 2nd dose of the covid vaccine. Client denies travel out of the [place] in the last 14 days. Ebola Screen: Patient negative for fever greater than or equal to 101.5 degrees Fahrenheit, and additional compatible Ebola Virus Disease symptoms Patient denies exposure to infectious person. Patient denies travel to an Ebola-affected area in the 21 days before illness onset. No symptoms or risks identified at this time. Initial Sepsis Screen: Does the patient meet any 2 criteria? No. Patient's initial sepsis screen is negative. Does the patient have a suspected source of infection? No. Patient's initial sepsis screen is negative. Risk Assessment: Do you want to hurt yourself or someone else? Patient reports no desire to harm self or others. Onset of symptoms was June 06, 2023. 16:27 Method Of Arrival: Ambulatory tm6 16:27 Acuity: PAYAL 3 tm6 Triage Assessment: 16:24 General: Appears distressed, Behavior is cooperative, anxious. Pain: Complains of pain tm6 in chest Quality of pain is described as tightness. EENT: No signs and/or symptoms were reported regarding the EENT system. Neuro: Level of Consciousness is awake, alert, obeys commands, Oriented to person, place, time, situation. Cardiovascular: Capillary refill < 3 seconds Patient's skin is warm and dry. Respiratory: Reports shortness of breath at rest Onset: The symptoms/episode began/occurred today, the patient has moderate shortness of breath. GI: Abdomen is flat, non-distended. : No signs and/or symptoms were reported regarding the genitourinary system. Derm: No signs and/or symptoms reported regarding the dermatologic system. Musculoskeletal: No signs and/or symptoms reported regarding the musculoskeletal system. Historical: - Allergies: 16:24 PENICILLINS; tm6 - PMHx: 16:24 Hypothyroidism; depressive disorder; Alcoholism; tm6 - PSHx: 16:24 abdominoplasty; breast implants; gastric sleeve; tm6 - Immunization history:: Adult Immunizations up to date, Client reports receiving the 2nd dose of the Covid vaccine. - Social history:: Smoking status: Patient reports the use of cigarette tobacco products, smokes one pack cigarettes per day. Patient uses alcohol, on a daily basis. twisted tea x8-12/day, 2-3 this morning. - Family history:: not pertinent. Screenin:45 [facility] ED Fall Risk Assessment (Adult) Score/Fall Risk Level 0 - 2 = Low Risk nj1 Oriented to surroundings, Maintained a safe environment, Hourly rounding (assess needs \\T\\ fall precautionary measures) done. 16:45 Abuse screen: Denies threats or abuse. Denies injuries from another. Nutritional nj1 screening: No deficits noted. Tuberculosis screening: No symptoms or risk factors identified. Assessment: 16:45 General: Appears uncomfortable, Behavior is cooperative, anxious. Pain: Complains of nj1 pain in chest Pain currently is 10 out of 10 on a pain scale. Neuro: Level of Consciousness is awake, alert, obeys commands, Oriented to person, place, time, situation. Cardiovascular: Patient's skin is warm and dry. Respiratory: Airway is patent Respiratory effort is even, unlabored, Respiratory pattern is tachypnea. 17:30 Reassessment: Patient appears in no apparent distress at this time. Patient and/or nj1 family updated on plan of care and expected duration. Pain level reassessed. Patient is alert, oriented x 3, equal unlabored respirations, skin warm/dry/pink. 18:40 Reassessment: Patient appears in no apparent distress at this time. No changes from [facility] previously documented assessment. Patient and/or family updated on plan of care and expected duration. Pain level reassessed. Patient is alert, oriented x 3, equal unlabored respirations, skin warm/dry/pink. 19:20 General: Appears in no apparent distress. Behavior is cooperative, appropriate for age. km8 Pain: Complains of pain in chest Pain currently is 8 out of 10 on a pain scale. Neuro: Level of Consciousness is awake, alert, obeys commands, Oriented to person, place, time, situation. Cardiovascular: Reports chest pain, shortness of breath, Capillary refill < 3 seconds Patient's skin is warm and dry. Respiratory: Reports shortness of breath Airway is patent Respiratory effort is even, unlabored, Respiratory pattern is regular, symmetrical. GI: No signs and/or symptoms were reported involving the gastrointestinal system. : No signs and/or symptoms were reported regarding the genitourinary system. EENT: No signs and/or symptoms were reported regarding the EENT system. Derm: No signs and/or symptoms reported regarding the dermatologic system. Skin is intact, is healthy with good turgor, Skin is dry, Skin is pink, warm \\T\\ dry. normal, Skin temperature is warm. Musculoskeletal: No signs and/or symptoms reported regarding the musculoskeletal system. Range of motion: intact in all extremities. Vital Signs: 16:27 BP 118 / 88; Pulse 96; Resp 22; Temp 98.3(O); Pulse Ox 100% on R/A; Weight 56.7 kg; tm6 Height 5 ft. 5 in. ; Pain 8/10; 16:29 BP 118 / 88; Pulse 96; Resp 22; Temp 98.3(O); Pulse Ox 100% on R/A; tm6 17:30 BP 116 / 87; Pulse 83; Resp 18; Pulse Ox 100% on R/A; nj1 18:40 BP 133 / 94; Pulse 82; Resp 20; Pulse Ox 99% on R/A; nj1 19:00 BP 125 / 97; Pulse 85; Resp 18; Pulse Ox 100% on R/A; km8 20:00 BP 116 / 76; Pulse 72; Resp 16; Pulse Ox 98% on R/A; km8 20:30 BP 123 / 82; Pulse 71; Resp 16; Pulse Ox 99% on R/A; km8 16:27 Body Mass Index 20.80 (56.70 kg, 165.1 cm) tm6 16:27 Pain Scale: Adult tm6 ED Course: 16:17 Patient arrived in ED. rg4 16:18 Harjinder Raymond MD is Attending Physician. poly 16:27 Arm band placed on left wrist. tm6 16:29 Triage completed. tm6 16:43 Sherley Ashley RN is Primary Nurse. nj1 16:45 Provided Education on: call light, fall precautions. nj1 16:45 Patient has correct armband on for positive identification. Bed in low position. Call nj1 light in reach. Adult w/ patient. 16:45 Inserted saline lock: 20 gauge in left antecubital area, using aseptic technique. Blood nj1 collected. 16:53 XRAY Chest (1 view) In Process Unspecified. EDMS 17:34 Jn Grant MD is Hospitalizing Provider. [facility] 18:09 CT Chest For PE Angio In Process Unspecified. EDMS 19:04 Report given to Paola BALDERAS. nj1 19:20 No provider procedures requiring assistance completed. km8 19:22 Patient admitted, IV remains in place. km8 Administered Medications: 17:28 Discontinued: ns 0.9% 1000 ml IV at 125 ml/hr continuous [facility] 16:55 Drug: NS 0.9% IV 1000 ml IV at 125 ml/hr continuous Route: IV; Rate: 125 ml/hr; Site: [facility] left antecubital; 19:00 Follow up: IV Status: Completed infusion km8 16:55 Drug: Ondansetron IVP 2 mg IVP once; over 2 minutes Route: IVP; Site: left antecubital; nj1 19:20 Follow up: Response: No adverse reaction km8 17:13 Drug: Aspirin PO Chewable Tablet 324 mg PO once; 81 mg tablets x 4 Route: PO; nj1 19:19 Follow up: Response: No adverse reaction km8 17:15 Drug: Famotidine IVP 20 mg IVP once; dilute with 10 mL 0.9% NaCl; give over 2 minutes nj Route: IVP; Site: left antecubital; 19:20 Follow up: Response: No adverse reaction km8 17:20 Drug: Thiamine IV 100 mg IV at per protocol once Route: IV; Rate: per protocol; Site: [facility] left antecubital; 19:20 Follow up: Response: No adverse reaction; IV Status: Completed infusion km8 19:19 Drug: Banana Bag - (Multivitamin IV 1 amp, NS 0.9% IV 1000 ml, Thiamine IV 100 mg, km8 foLIC Acid IVPB 1 mg) IV at 125 ml/hr once Route: IV; Rate: 125 ml/hr; Site: left antecubital; 20:38 Follow up: IV Status: Infusion continued upon admission km8 19:19 Drug: Potassium PO Effervescent Tablet 25 mEq PO once; dissolve in 4 ounces of water or km8 juice Route: PO; 20:39 Follow up: Response: No adverse reaction [facility] 19:19 Drug: Ativan IVP 1 mg IVP once Route: IVP; Site: left antecubital; km8 20:39 Follow up: Response: No adverse reaction; Anxiety decreased km8 Medication: 19:20 VIS not applicable for this client. km8 Outcome: 17:34 Decision to Hospitalize by Provider. poly 20:38 Admitted to Med/surg accompanied by tech, via wheelchair, room 404, with chart, Report km8 called to ANDREY Khan 20:38 Condition: good 20:38 Discharge instructions given to patient, Instructed on the need for admit, Demonstrated understanding of instructions, 20:45 Patient left the ED. km8 Signatures: Dispatcher [employer] EDMS Harjinder Raymond MD MD cha Garcia, Rubi rg4 Sherley Ashley, RN RN nj1 Paola Edwards RN RN 8 Rikki Khan RN RN tm6 Corrections: (The following items were deleted from the chart) 19:04 18:40 Pulse 82bpm; Resp 20bpm; Pulse Ox 99% RA; nj1 nj1 19:09 18:00 Reassessment: Patient appears in no apparent distress at this time. Patient nj1 and/or family updated on plan of care and expected duration. Pain level reassessed. Patient is alert, oriented x 3, equal unlabored respirations, skin warm/dry/pink. nj1
--- NOTE | 2023-06-06 17:36 | EDPHYS ---
Physician Documentation [facility] Name: Serina Shoemaker Age: 43 yrs Sex: Female : 1980 Arrival Date: 06/06/2023 Time: 16:16 Bed 15 Private MD: ED Physician Harjinder Raymond HPI: 06/06 17:29 This 43 yrs old Female presents to ER via Ambulatory with complaints of poly Breathing Difficulty. 17:29 The patient has shortness of breath at rest, with light activity. Onset: The poly symptoms/episode began/occurred 1 day(s) ago. Duration: The symptoms are continuous, and are steadily getting worse. The patient's shortness of breath is aggravated by nothing. Associated signs and symptoms: Pertinent positives: chest pain. Severity of symptoms: At their worst the symptoms were mild moderate in the emergency department the symptoms are unchanged. The patient has experienced similar episodes in the past, several times. Historical: - Allergies: 16:24 PENICILLINS; tm6 - PMHx: 16:24 Hypothyroidism; depressive disorder; Alcoholism; tm6 - PSHx: 16:24 abdominoplasty; breast implants; gastric sleeve; tm6 - Immunization history:: Adult Immunizations up to date, Client reports receiving the 2nd dose of the Covid vaccine. - Social history:: Smoking status: Patient reports the use of cigarette tobacco products, smokes one pack cigarettes per day. Patient uses alcohol, on a daily basis. twisted tea x8-12/day, 2-3 this morning. - Family history:: not pertinent. ROS: 17:29 Constitutional: Negative for fever, chills, and weight loss, Eyes: Negative for injury, poly pain, redness, and discharge, ENT: Negative for injury, pain, and discharge, Neck: Negative for injury, pain, and swelling, Abdomen/GI: Negative for abdominal pain, nausea, vomiting, diarrhea, and constipation, Back: Negative for injury and pain, : Negative for injury, bleeding, discharge, and swelling, MS/Extremity: Negative for injury and deformity, Skin: Negative for injury, rash, and discoloration, Neuro: Negative for headache, weakness, numbness, tingling, and seizure, Psych: Negative for depression, anxiety, suicide ideation, homicidal ideation, and hallucinations, 17:29 Cardiovascular: Positive for chest pain, of the chest, 17:29 Respiratory: Positive for shortness of breath, Exam: 17:29 Constitutional: This is a well developed, well nourished patient who is awake, alert, poly and in no acute distress. Head/Face: Normocephalic, atraumatic. Eyes: Pupils equal round and reactive to light, extra-ocular motions intact. Lids and lashes normal. Conjunctiva and sclera are non-icteric and not injected. Cornea within normal limits. Periorbital areas with no swelling, redness, or edema. ENT: Nares patent. No nasal discharge, no septal abnormalities noted. Tympanic membranes are normal and external auditory canals are clear. Oropharynx with no redness, swelling, or masses, exudates, or evidence of obstruction, uvula midline. Mucous membranes moist. Neck: Trachea midline, no thyromegaly or masses palpated, and no cervical lymphadenopathy. Supple, full range of motion without nuchal rigidity, or vertebral point tenderness. No Meningismus. Chest/axilla: Normal chest wall appearance and motion. Nontender with no deformity. No lesions are appreciated. Cardiovascular: Regular rate and rhythm with a normal S1 and S2. No gallops, murmurs, or rubs. Normal PMI, no JVD. No pulse deficits. Respiratory: Lungs have equal breath sounds bilaterally, clear to auscultation and percussion. No rales, rhonchi or wheezes noted. No increased work of breathing, no retractions or nasal flaring. Abdomen/GI: Soft, non-tender, with normal bowel sounds. No distension or tympany. No guarding or rebound. No evidence of tenderness throughout. Skin: Warm, dry with normal turgor. Normal color with no rashes, no lesions, and no evidence of cellulitis. MS/ Extremity: Pulses equal, no cyanosis. Neurovascular intact. Full, normal range of motion. Psych: Awake, alert, with orientation to person, place and time. Behavior, mood, and affect are within normal limits. 17:29 Neuro: Orientation: to person, place, Not oriented to time, situation, Mentation: slow to respond, Memory: immediate memory is impaired, remote memory is impaired, recent memory is intact, Cranial nerves: grossly normal, is grossly normal based on the patient's age, no acute changes, Cerebellar function: is grossly normal, Motor: is normal, Gait: not tested. seizure activity, is not displayed by the patient, 17:33 ECG was reviewed by the Attending Physician. [facility] Vital Signs: 16:27 BP 118 / 88; Pulse 96; Resp 22; Temp 98.3(O); Pulse Ox 100% on R/A; Weight 56.7 kg; tm6 Height 5 ft. 5 in. ; Pain 8/10; 16:29 BP 118 / 88; Pulse 96; Resp 22; Temp 98.3(O); Pulse Ox 100% on R/A; tm6 17:30 BP 116 / 87; Pulse 83; Resp 18; Pulse Ox 100% on R/A; nj1 18:40 BP 133 / 94; Pulse 82; Resp 20; Pulse Ox 99% on R/A; nj1 19:00 BP 125 / 97; Pulse 85; Resp 18; Pulse Ox 100% on R/A; km8 20:00 BP 116 / 76; Pulse 72; Resp 16; Pulse Ox 98% on R/A; km8 20:30 BP 123 / 82; Pulse 71; Resp 16; Pulse Ox 99% on R/A; km8 16:27 Body Mass Index 20.80 (56.70 kg, 165.1 cm) tm6 16:27 Pain Scale: Adult tm6 MDM: 16:18 Patient medically screened. [facility] 17:31 Differential diagnosis: Anxiety Reaction asthma, CHF exacerbation, Chronic Obstructive poly Pulmonary Disease pneumonia, pulmonary edema, Pulmonary Embolism reactive airway disease, Unstable Angina. Antibiotic administration: Not indicated. Data reviewed: vital signs, nurses notes, lab test result(s), EKG, radiologic studies, CT scan, plain films. Consideration of Admission/Observation Escalation of care including admission/observation considered. I considered the following discharge prescriptions or medication management in the emergency department Medications were administered in the Emergency Department. See MAR. Independent interpretation of the following test(s) in the Emergency Department EKG: See my EKG interpretation above. Test considered but Not performed: Ultrasound no 2 d echo. Historians other than the Patient: Spouse/Significant Other: . Care significantly affected by the following chronic conditions: hypothyroid, depression, alcoholism. 06/06 16:19 Order name: Basic Metabolic Panel; Complete Time: 18:30 poly 06/06 16:19 Order name: CBC with Diff poly 06/06 16:19 Order name: LFT's; Complete Time: 18:30 [facility] 06/06 16:19 Order name: Magnesium; Complete Time: 18:30 [facility] 06/06 16:19 Order name: NT PRO-BNP; Complete Time: 18:30 [facility] 06/06 16:19 Order name: PT-INR; Complete Time: 17:28 poly 06/06 16:19 Order name: Troponin HS; Complete Time: 18:30 [facility] 06/06 17:22 Order name: Acetaminophen; Complete Time: 18:30 [facility] 06/06 17:22 Order name: ETOH Level; Complete Time: 18:30 [facility] 06/06 17:22 Order name: Salicylate; Complete Time: 18:30 [facility] 06/06 17:22 Order name: Urine Drug Screen [facility] 06/06 17:22 Order name: Lipase; Complete Time: 18:30 [facility] 06/06 19:47 Order name: CBC Smear Scan [facility] 06/06 16:19 Order name: XRAY Chest (1 view); Complete Time: 19:02 [facility] 06/06 16:49 Order name: CT Chest For PE Angio; Complete Time: 19:02 [facility] 06/06 16:19 Order name: EKG; Complete Time: 16:20 [facility] 06/06 16:19 Order name: Cardiac monitoring; Complete Time: 16:57 [facility] 06/06 16:19 Order name: EKG - Nurse/Tech; Complete Time: 17:28 [facility] 06/06 16:19 Order name: IV Saline Lock; Complete Time: 16:57 [facility] 06/06 16:19 Order name: Labs collected and sent; Complete Time: 16:57 [facility] 06/06 16:19 Order name: O2 Per Protocol; Complete Time: 16:48 [facility] 06/06 16:19 Order name: O2 Sat Monitoring; Complete Time: 16:48 [facility] EC:33 Rate is 74 beats/min. Rhythm is regular. QRS Gardner is Normal. AR interval is normal. QRS poly interval is normal. QT interval is normal. No Q waves. T waves are Normal. No ST changes noted. Clinical impression: NSR w/ Non-specific ST/T Changes and No evidence of ischemia. Interpreted by me. Reviewed by me. Administered Medications: 17:28 Discontinued: ns 0.9% 1000 ml IV at 125 ml/hr continuous poly 16:55 Drug: NS 0.9% IV 1000 ml IV at 125 ml/hr continuous Route: IV; Rate: 125 ml/hr; Site: [facility] left antecubital; 19:00 Follow up: IV Status: Completed infusion 8 16:55 Drug: Ondansetron IVP 2 mg IVP once; over 2 minutes Route: IVP; Site: left antecubital; pr1 19:20 Follow up: Response: No adverse reaction 8 17:13 Drug: Aspirin PO Chewable Tablet 324 mg PO once; 81 mg tablets x 4 Route: PO; pr1 19:19 Follow up: Response: No adverse reaction 8 17:15 Drug: Famotidine IVP 20 mg IVP once; dilute with 10 mL 0.9% NaCl; give over 2 minutes nj1 Route: IVP; Site: left antecubital; 19:20 Follow up: Response: No adverse reaction [facility] 17:20 Drug: Thiamine IV 100 mg IV at per protocol once Route: IV; Rate: per protocol; Site: [facility] left antecubital; 19:20 Follow up: Response: No adverse reaction; IV Status: Completed infusion [facility] 19:19 Drug: Banana Bag - (Multivitamin IV 1 amp, NS 0.9% IV 1000 ml, Thiamine IV 100 mg, km8 foLIC Acid IVPB 1 mg) IV at 125 ml/hr once Route: IV; Rate: 125 ml/hr; Site: left antecubital; 20:38 Follow up: IV Status: Infusion continued upon admission 8 19:19 Drug: Potassium PO Effervescent Tablet 25 mEq PO once; dissolve in 4 ounces of water or km8 juice Route: PO; 20:39 Follow up: Response: No adverse reaction [facility] 19:19 Drug: Ativan IVP 1 mg IVP once Route: IVP; Site: left antecubital; km8 20:39 Follow up: Response: No adverse reaction; Anxiety decreased 8 Disposition Summary: 06/06/23 17:34 Hospitalization Ordered Notes: Hospitalization Status: Observation oply Provider: Jn Grant cha Location: Telemetry/MedSurg (observation) poly Condition: Stable poly Problem: new poly Symptoms: have improved poly Bed/Room Type: Standard poly Room Assignment: 404(06/06/23 18:51) iw Diagnosis - Chest pain, unspecified poly - Chest pain on breathing poly - Weakness poly - Alcohol abuse with intoxication poly - Hypokalemia poly Forms: - Medication Reconciliation Form poly - SBAR form poly - Leadership Thank You Letter poly Signatures: Dispatcher [employer] Harjinder Odom MD MD cha Williams, Irene, RN RN iw Sherley Ashley RN RN nj1 Paola Edwards RN RN km8 Rikki Khan RN RN tm6 Corrections: (The following items were deleted from the chart) 18:51 17:34 poly [place]
[2023-06-06 18:13] LABS: Lipase 29 U/L (13-75)
[2023-06-06] MEDS ORDERED: ONDANSETRON 4 MG/2 ML VIAL IV PRN (18:36)
[2023-06-06] MEDS ORDERED: ACETAMINOPHEN 500 MG TAB PO PRN (18:36)
--- NOTE | 2023-06-06 18:53 | P.HP ---
Certification for Inpatient Patient admitted to: Observation With expected LOS: <2 Midnights Practitioner: I am a practitioner with admitting privileges, knowledge of patient current condition, hospital course, and medical plan of care. Services: Services provided to patient in accordance with Admission requirements found in Title 42 Section 412.3 of the Code of Federal Regulations Patient History Date of Service: 06/06/23 Reason for admission: Chest pain, Dyspnea, EToH intoxication History of Present Illness: Ms. Shoemaker a 43-year-old female with a history of hypothyroidism, depressive disorder, alcoholism presented to the emergency room with complaints of breathing difficulty. The patient has a shortness of breath at rest, with light activity. The symptoms began yesterday, patient reports the symptoms are getting worse. The patient's shortness of breath is aggravated with nothing. Patient reports she also has chest pain midsternal radiating to the right side of the back. Severity is 10 out of 10. Patient has experienced similar episode in the past, several times. Patient denies fever chills or weight loss. Patient denies abdominal pain, nausea or vomiting. Patient reports that she smokes almost a pack per day, drink twisted tea alcoholic alcoholic beverage 8 to 12/day for long time recently increased the amount of alcohol consumption. ED course Patient is alert to person and place, slow to respond. Vital signs are stable. Initial chest x-ray is normal. CTPA done pending result. Initial CBC and metabolic panel are within normal limit. Patient appeared to be in pain, answering questions appropriately. Patient's at bedside. Admitting the patient to the hospital with a diagnosis of chest pain unspecified, weakness and alcohol abuse with intoxication. Allergies PENICILLINS Allergy (Uncoded 11/29/18 18:12) Hives Home Medications: Levothyroxine Sodium 50 mcg PO DAILY 04/14/17 Citalopram [Celexa*] 20 mg PO DAILY 11/29/18 Albuterol Sulfate [Proair Hfa] 2 puff IH TID PRN #1 hfa.aer.ad 12/02/18 Benzonatate [Tessalon Perle*] 100 mg PO TID PRN #20 cap 12/02/18 Calcium Carbonate/Vitamin D3 [Oscal 500 + Vit D 200 Iu Tab*] 1 tab PO BID #60 tab 12/02/18 Guaifenesin [Mucinex] 600 mg PO BID #10 tab.er.12h 12/02/18 Nicotine [Nicoderm*] 21 mg TD DAILY #30 patch.td24 12/02/18 levoFLOXacin [Levaquin] 750 mg PO DAILY #5 tab 12/02/18 traMADol HCL [Ultram*] 50 mg PO BID PRN #10 tab 12/02/18 - Past Medical/Surgical History Diabetic: No -: Hypothyroidism -: Depression -: Fatty liver/PLATA -: Tobacco abuse -: Alcohol use -: History of gastric surgery -: Gastric sleeve -: Abdominoplasty -: [employer]plants Psychosocial/ Personal History: Patient is . She has 3 children. 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 - Family History Father -: Heart disease, Liver disease, Other (see notes) Mother Notes: cirrohsis - Social History Smoking Status: Current every day smoker Counseled patient to stop smoking for: less than 10 minutes Smoking therapy provided: Yes Patient receptive to therapy: Yes Alcohol use: Yes CD- Drugs: Yes Caffeine use: Yes Place of Residence: Home Review of Systems 10-point ROS is otherwise unremarkable Physical Examination - Physical Exam General: Alert, Oriented x2 HEENT: Atraumatic, Normocephalic Neck: Supple, 2+ carotid pulse no bruit Respiratory: Clear to auscultation bilaterally, Normal air movement Cardiovascular: No edema, Normal pulses, Regular rate/rhythm, Normal S1 S2 Capillary refill: <2 Seconds Gastrointestinal: Normal bowel sounds, Soft and benign Musculoskeletal: No clubbing, No swelling Integumentary: No rashes, No breakdown Neurological: Normal speech, Sensation intact - Studies Laboratory Data (last 24 hrs) 06/06/23 06/06/23 06/06/23 16:45 16:45 16:45 WBC 3.10 L Hgb 13.0 Hct 37.6 Plt Count 254 PT 11.5 INR 1.05 Sodium 141 Potassium 3.4 L BUN < 3 L Creatinine 0.85 Glucose 97 Magnesium 2.1 Total Bilirubin 0.5 AST 50 H ALT 34 Alkaline Phosphatase 50 Lipase 06/06/23 16:42 WBC Hgb Hct Plt Count PT INR Sodium Potassium BUN Creatinine Glucose Magnesium Total Bilirubin AST ALT Alkaline Phosphatase Lipase 29 Assessment and Plan - Problems (Diagnosis) (1) Chest pain, unspecified Current Visit: Yes Status: Acute Plan: Acute, patient came to the hospital with the chest pain started since this morning Pain severity 7 out of 10 patient guarded analgesics in the emergency room Initial cardiac enzymes are negative EKG normal sinus rhythm Vital signs are stable Based on history and physical examination, we will admit the patient for 23 hours observation to monitor her EKG, vital signs and electrolytes -Discussed the case and plan of care with the Dr. Reddy, hospitalist. - Evaluation thus far: - EKG: No obvious ST segment changes, trend - Serial troponin - chest x-ray -nonsignificant - Management plan: - S/P aspirin 324 mg PO x 1 in ED - Start daily baby aspirin - Symptom control with PRN acetaminophen, nitroglycerin, morphine Qualifiers: Chest pain type: other chest pain Qualified Code(s): R07.89 - Other chest pain; R07.8 - Other chest pain (2) Dyspnea Current Visit: Yes Status: Acute Plan: Acute, patient reports shortness of breath at rest started this morning Patient is breathing normal and at room air SPO2 97% Chest x-ray nonsignificant PT CA-result pending Will admit the patient and continue to monitor Bronchodilators as needed Oxygen 2 L via nasal cannula as needed (3) ETOH abuse Current Visit: Yes Status: Acute Plan: Acute on chronic patient uses alcohol daily twisted tea 8-12 bottles per day, due to the 3 bottles this morning Patient is alert oriented x2 Once thiamine 100 mg IV given in the emergency room we will continue 100 mg p.o. daily, folic acid 1 mg p.o. daily, banana bag, Tylenol 650 mg p.o. every 6 hours as needed for headache, Ativan 2 mg IV every 4 hours as needed for anxiety Monitor patient for EtOH withdrawal. Monitor and replace electrolytes (4) Nicotine abuse Current Visit: Yes Status: Acute Plan: Chronic, current everyday smoker of 1 pack/day for many years Cigarette cessation discussed Patient voiced understanding spent less than 10 minutes Nicotine patch ordered (5) Cigarette nicotine dependence Current Visit: Yes Status: Acute Qualifiers: Substance use status: unspecified nicotine-induced disorder Qualified Code(s): F17.219 - Nicotine dependence, cigarettes, with unspecified nicotine- induced disorders (6) Depression Current Visit: Yes Status: Acute Plan: Chronic, uncontrolled on antidepressants at home We will resume the home medication as appropriate Patient denies any suicidal thoughts or ideas We will continue to monitor Qualifiers: Depression Type: major depressive disorder Major depression recurrence: recurrent Active/Remission status: currently active Major depression episode severity: moderate Qualified Code(s): F33.1 - Major depressive disorder, recurrent, moderate Discharge Plan: Home Plan to discharge in: 24 Hours - Advance Directives Does patient have a Living Will: No Does patient have a Durable POA for Healthcare: No - Code Status/Comfort Care Code Status Assessed: Yes (full code) Code Status: Full Code Physician Review: Patient Assessed, Agree with Above Assessment and Plan Critical Care: No Time Spent Managing Pts Care (In Minutes): 55 (minutes)
--- NOTE | 2023-06-06 18:57 | RAD REPORT ---
EXAM DESCRIPTION: CT - Chest For Pe Angio - 06/06/2023 6:12 pm CLINICAL HISTORY: Chest pain;Dyspnea COMPARISON: Chest For Pe Angio dated 11/29/2018 TECHNIQUE: Dynamically enhanced axial 3 mm thick images of the chest were obtained during administra tion of <100> mL Isovue 370 IV contrast. Coronal and oblique reconstruction images were generated and reviewed. Exam utilizes a protocol for optimal evaluation of pulmonary arterial tree. Maximum intensity projections 3D imaging was utilized All CT scans are performed using dose optimization technique as appropriate and may include automated exposure control or mA/KV adjustment according to patient size. FINDINGS: Chest Wall: No suspicious thyroid nodules or pathologic lymphadenopathy. Bilateral breast prostheses. Lungs: No acute abnormality. Pleura: No significant effusions or pneumothorax. Mediastinum/vickey: No pathologic lymphadenopathy. Pulmonary arteries/Aorta: No filling defect identified. No aortic aneurysm. Heart: No significant pericardial effusion. Normal heart size. Upper abdomen: No acute abnormality.Surgical changes within the stomach likely from prior partial gas trectomy . Bones: No acute abnormality. IMPRESSION: Negative for pulmonary embolism. No acute findings in the chest .
--- NOTE | 2023-06-06 19:00 | RAD REPORT ---
EXAM DESCRIPTION: Dejuan Single View06/06/2023 4:52 pm CLINICAL HISTORY: sob COMPARISON: April 2023 FINDINGS: The lungs appear clear of acute infiltrate. The heart is normal size IMPRESSION: No acute abnormalities displayed
[2023-06-06] MEDS ORDERED: SODIUM CHLORIDE 0.9% 10ML INJ IV PRN (19:12)
[2023-06-06] MEDS ORDERED: NITROGLYCERIN 0.4 MG/TAB SL PRN (19:12)
[2023-06-06] MEDS ORDERED: LORazepam 2 MG/ML VIAL ONE (19:22)
[2023-06-06] MEDS ORDERED: POTASSIUM 25 MEQ EFFERV TAB ONE (19:22)
[2023-06-06] MEDS ORDERED: FOLIC ACID 5 MG/ML VIAL ONE (19:23)
[2023-06-06 19:46] LABS: Platelet Estimate ADEQ; White Blood Cell Scan OK (OK)
[2023-06-06 19:47] LABS: Blood Morphology Comment NOT SEEN (NOT SEEN)
[2023-06-06 21:15] VITALS: BMI 20.7
[2023-06-06] MEDS: NICOTINE 21 MG/PAT TD SCH (22:23)
[2023-06-06] MEDS: PANTOPRAZOLE 40 MG INJ IVP SCH (22:24)
[2023-06-06] MEDS: MORPHINE 2 MG/ML SYR IV PRN (22:25)
[2023-06-06] MEDS: LORazepam 2 MG/ML VIAL IV PRN (22:26)
[2023-06-07 02:41] LABS: Absolute Lymphocytes (CBC) 1.4 K/uL (0.7-4.9); Hematocrit 30.8 % (36.0-45.0); Lymphocytes % 44.1 % (15.3-44.8); MCV 100.8 fL (80-100); MPV 7.3 fL (7.6-11.3); Platelets 177 thou/uL (152-406); RBC Red Blood Cell Count 3.06 M/uL (3.86-4.86)
[2023-06-07] MEDS: MORPHINE 2 MG/ML SYR IV PRN ×3 (02:49→13:55)
[2023-06-07] MEDS: LORazepam 2 MG/ML VIAL IV PRN ×3 (02:49→15:49)
[2023-06-07 03:03] LABS: Magnesium 1.8 mg/dL (1.6-2.4); Phosphorus 3.8 mg/dL (2.5-4.9); Potassium 3.5 mEq/L (3.5-5.1)
[2023-06-07 08:35] VITALS: O2SAT 98
[2023-06-07] MEDS: NICOTINE 21 MG/PAT TD SCH (08:50)
[2023-06-07] MEDS: PANTOPRAZOLE 40 MG INJ IVP SCH (08:51)
[2023-06-07] MEDS ORDERED: MAGNESIUM SULFATE 1 gm IVPB 1 GM/100 ML BAG IV ONE (09:00)
[2023-06-07] MEDS ORDERED: POTASSIUM CL SA 10 MEQ TAB PO ONE (09:00)
[2023-06-07] MEDS ORDERED: FOLIC ACID 1 MG, MULTIVITAMINS INJ 10 ML, THIAMINE HCL 100 MG in NA CHLORIDE 0.9% 1,000 ML IV SCH (09:00)
[2023-06-07] MEDS ORDERED: FOLIC ACID 1 MG TABLET PO SCH (09:00)
[2023-06-07] MEDS ORDERED: MULTIVITAMIN TAB PO SCH (09:00)
[2023-06-07] MEDS ORDERED: ENOXAPARIN 40 MG/0.4 ML SQ SCH (09:00)
[2023-06-07] MEDS ORDERED: THIAMINE HCL 100 MG TABLET PO SCH (09:00)
[2023-06-07 10:30] LABS: Specific Gravity > 1.030 (1.005-1.030); Urine Bacteria None Seen /HPF (<20); Urine Bilirubin NEGATIVE (Negative); Urine Blood Negative (Negative); Urine Clarity Clear (Clear); Urine Color Yellow (Yellow); Urine Glucose NEGATIVE (Negative); Urine Protein TRACE (Negative); Urine RBC <5 /HPF (None Seen); Urine Urobilinogen 1+ (Normal); Urine pH 6.5 (5.0-7.0)
[2023-06-07 10:42] LABS: Barbiturates NEGATIVE (NEGATIVE); Benzodiazepines NEGATIVE (NEGATIVE); Cocaine POSITIVE (NEGATIVE); METHAMPHETAM NEGATIVE (NEGATIVE); Methadone NEGATIVE (NEGATIVE); Opiates POSITIVE (NEGATIVE); Phencyclidine NEGATIVE (NEGATIVE); THC Cannibis POSITIVE (NEGATIVE)
[2023-06-07 15:40] VITALS: BP 106/67; TEMP 97.2
[2023-06-07] MEDS ORDERED: CYANOCOBALAMIN 1000MCG/ML INJ IM ONE (17:00)
== END 2023-06-07 18:20 | disposition home or self-care (01) ==
LOC: ER 16:16 → ERHOLD 18:33 → 4TH 20:08
PROVIDERS: ADMIT Hospitalist; ATTEND Hospitalist
DX: R07.9 Chest pain, unspecified (principal); R06.00 Dyspnea, unspecified; E03.9 Hypothyroidism, unspecified; F32.A Depression, unspecified; F10.229 Alcohol dependence with intoxication, unspecified; Y90.5 Blood alcohol level of 100-119 mg/100 ml; F17.219 Nicotine dependence, cigarettes, with unspecified nicotine-induced disorders; E87.6 Hypokalemia; Z88.0 Allergy status to penicillin
CPT/HCPCS: 96365; 85025 ×2; 81001; 80048 ×2; 36415; 83735 ×2; 84100; 85610; 80076; 84484 ×4; 82607; 83690; 83540; 83880; 80307; 71275; 71045; 94760; 96375; 99285; 96366; 80143; 80179; 82077; Q9967; J3411 ×3; J3420; J3475; C9113 ×2; J1650; J2270 ×4; J2405 ×2; J7030 ×3; 93005; G0378

== ENCOUNTER → 2023-08-11 | Emergency (ER) | payer BC, OTHER ==
[~2023-08-11] MED LIST: IBUPROFEN 400 MG TAB ONE; KETOROLAC 30 MG/ML INJ ONE; MORPHINE 4 MG/ML SYR ONE; NA CHLORIDE 0.9% 1,000 ML ONE; ONDANSETRON 4 MG/2 ML VIAL ONE
--- NOTE | 2023-08-11 05:52 | EDPHYS ---
Physician Documentation [facility] Name: Serina Shoemaker Age: 43 yrs Sex: Female : 1980 Arrival Date: 08/11/2023 Time: 01:57 Bed 8 Private MD: ED Physician Silvestre Douglass HPI: 08/11 02:00 This 43 yrs old Female presents to ER via Unassigned with complaints of Back sp4 Pain. 05:46 3-year-old female presents in intoxicated condition with EMS after she fell at home sp4 backwards onto the staircase causing moderate to severe pain to the coccyx, pelvis and lower back. Appears intoxicated on the arrival. . Historical: - Allergies: 02:08 PENICILLINS; jw7 - Home Meds: 02:08 Celexa 10 mg Oral tab 1 tab once daily [Active]; levothyroxine oral [Active]; jw7 antidepressants [Active]; anxiety [Active]; Sleep meds [Active]; - PMHx: 02:08 Alcoholism; depressive disorder; Hypothyroidism; Hypertensive disorder; jw7 - PSHx: 02:08 abdominoplasty; breast implants; gastric sleeve; jw7 02:11 Tubal Ligation; jw7 - Immunization history:: Adult Immunizations up to date, Client reports receiving the 2nd dose of the Covid vaccine, Pneumococcal vaccine is up to date, Flu vaccine is not up to date. - Social history:: Smoking status: Patient reports the use of cigarette tobacco products, smokes one pack cigarettes per day. Reported history of juuling and/or vaping. Patient uses alcohol, on a daily basis. - Family history:: not pertinent. ROS: 05:46 Constitutional: Negative for fever, chills, and weight loss, positive for fall at home, sp4 positive pain in the pelvis, positive coccyx pain, positive L-spine pain 05:46 All other systems are negative, Exam: 05:46 Constitutional: This is a well developed, well nourished patient who is awake, alert, sp4 and in no acute distress. Intoxicated female. Head/Face: Normocephalic, atraumatic. Eyes: Pupils equal round and reactive to light, extra-ocular motions intact. Lids and lashes normal. Conjunctiva and sclera are not injected. Cornea within normal limits. Periorbital areas with no swelling, redness, or edema. ENT: Nares patent. No nasal discharge, no septal abnormalities noted. Tympanic membranes are normal and external auditory canals are clear. Oropharynx with no redness, swelling, or masses, exudates, or evidence of obstruction, uvula midline. Mucous membranes moist. Neck: Trachea midline, no thyromegaly or masses palpated, and no cervical lymphadenopathy. Supple, full range of motion without nuchal rigidity, or vertebral point tenderness. Chest/axilla: Normal chest wall appearance and motion. Nontender with no deformity. No lesions are appreciated. Cardiovascular: Regular rate and rhythm with a normal S1 and S2. No gallops, murmurs, or rubs. Normal PMI, no JVD. No pulse deficits. Respiratory: Lungs have equal breath sounds bilaterally, clear to auscultation and percussion. No rales, rhonchi or wheezes noted. No increased work of breathing, no retractions or nasal flaring. Abdomen/GI: Soft, non-tender, with normal bowel sounds. No distension or tympany. No guarding or rebound. No evidence of tenderness throughout. Back: No spinal tenderness. No costovertebral tenderness. Pelvic Exam: Normal external genitalia. Skin: Warm, dry with normal turgor. Normal color with no rashes, no lesions, and no evidence of cellulitis. MS/ Extremity: Pulses equal, no cyanosis. Neurovascular intact. Full, normal range of motion. Neuro: Awake and alert, GCS 15, oriented to person, place, time, and situation. Cranial nerves II-XII grossly intact. Motor strength 5/5 in all extremities. Sensory grossly intact. Psych: Awake, alert, with orientation to person, place and time. Behavior, mood, and affect are within normal limits Vital Signs: 02:06 BP 101 / 73; Pulse 70; Resp 19 S; Temp 97.8(O); Pulse Ox 99% on R/A; Weight 56.7 kg; jw7 Height 5 ft. 5 in. ; Pain 10/10; 02:56 BP 100 / 69; Pulse 75; Resp 15 S; Pulse Ox 100% on R/A; jw7 03:47 BP 88 / 57; Pulse 68; Resp 19; Pulse Ox 100% ; jj7 04:43 BP 106 / 67; Pulse 64; Resp 16; Pulse Ox 96% ; jj7 05:30 BP 81 / 61; Pulse 72; Resp 16 S; Pulse Ox 98% on R/A; jw7 06:35 BP 105 / 65; Pulse 66; Resp 15 S; Pulse Ox 96% on R/A; jw7 02:06 Body Mass Index 20.80 (56.70 kg, 165.1 cm) jw7 02:06 Pain Scale: Adult jw7 MDM: 02:01 Patient medically screened. sp4 05:36 ED course: EXAMINATION: CT PELVIS WITHOUT IV CONTRAST, CT LUMBAR SPINE WITHOUT IV sp4 CONTRAST INDICATION: Female, 43 years old, fall, L-spine and pelvic pain COMPARISON(S): None available at the time of dictation TECHNIQUE: CT acquisition of the lumbar spine and pelvis without contrast. Coronal and sagittal reformatted images provided. This exam was performed according to departmental dose-optimization program which includes automated exposure control, adjustment of the mA and/or kV according to patient size, and/or use of iterative reconstruction technique. FINDINGS: LUMBAR SPINE: Patient motion artifact at the level of L4. Morphology: No fracture. Vertebral body heights are normal. Alignment: No traumatic listhesis. Straightening of normal lordotic curvature which may be positional. Disc Levels: No significant degenerative change. Other: No acute finding of the imaged abdominopelvic contents and paraspinal soft tissues. Partially imaged postsurgical change of the stomach. PELVIS: Bones: No acute fracture. Normal osseous mineralization. Joints: No dislocation. Mild bilateral hip osteoarthrosis. No obvious joint effusion. Other: No acute finding of the imaged pelvic contents, muscles/tendons, or soft tissues. Enlarged appearance of the uterus with a slightly hyperdense lesion near the right fundus measuring approximately 6 cm in largest diameter. Prominent distention of the urinary bladder. IMPRESSION: 1. No acute osseous finding of the lumbar spine or pelvis. 2. Mild bilateral hip osteoarthrosis. 3. Enlarged and heterogeneous (presumed fibroid) uterus, which may be further characterized with outpatient pelvic ultrasound Electronically signed by: Robi Santiago MD 08/11/2023 05:25 AM REGISTERED ACCOUNT ADMINISTRATOR . 05:37 ED course: EXAMINATION: CT PELVIS WITHOUT IV CONTRAST, CT LUMBAR SPINE WITHOUT IV sp4 CONTRAST INDICATION: Female, 43 years old, fall, L-spine and pelvic pain COMPARISON(S): None available at the time of dictation TECHNIQUE: CT acquisition of the lumbar spine and pelvis without contrast. Coronal and sagittal reformatted images provided. This exam was performed according to departmental dose-optimization program which includes automated exposure control, adjustment of the mA and/or kV according to patient size, and/or use of iterative reconstruction technique. FINDINGS: LUMBAR SPINE: Patient motion artifact at the level of L4. Morphology: No fracture. Vertebral body heights are normal. Alignment: No traumatic listhesis. Straightening of normal lordotic curvature which may be positional. Disc Levels: No significant degenerative change. Other: No acute finding of the imaged abdominopelvic contents and paraspinal soft tissues. Partially imaged postsurgical change of the stomach. PELVIS: Bones: No acute fracture. Normal osseous mineralization. Joints: No dislocation. Mild bilateral hip osteoarthrosis. No obvious joint effusion. Other: No acute finding of the imaged pelvic contents, muscles/tendons, or soft tissues. Enlarged appearance of the uterus with a slightly hyperdense lesion near the right fundus measuring approximately 6 cm in largest diameter. Prominent distention of the urinary bladder. IMPRESSION: 1. No acute osseous finding of the lumbar spine or pelvis. 2. Mild bilateral hip osteoarthrosis. 3. Enlarged and heterogeneous (presumed fibroid) uterus, which may be further characterized with outpatient pelvic ultrasound. 05:46 Differential diagnosis: arthritis, Fatigue Fracture ruptured disc, Scoliosis. Data sp4 reviewed: vital signs, nurses notes, EMS record, radiologic studies, CT scan. Consideration of Admission/Observation Escalation of care including admission/observation considered. ED course: CT today is unremarkable. Patient feels improved after medication. Stable for discharge home. 08/11 02:01 Order name: CT Pelvis wo Cont sp4 08/11 02:01 Order name: CT Lumbar Spine Wo Con sp4 Administered Medications: 02:53 Drug: NS 0.9% IV 1000 ml IV at 1 bolus Per protocol; 1000 mL bolus Route: IV; Rate: 1 jw7 bolus; Site: right forearm; 06:01 Follow up: Response: No adverse reaction; IV Status: Completed infusion; IV Intake: jw7 1000ml 02:54 Drug: morphine IVP or IV 4 mg IVP once over 4 mins Route: IVP; Infused Over: 4 mins; jw7 Site: right forearm; 06:01 Follow up: Response: No adverse reaction jw7 02:54 Drug: Ketorolac IVP 30 mg IVP once Route: IVP; Site: right forearm; jw7 06:01 Follow up: Response: No adverse reaction jw7 02:54 Drug: Ondansetron IVP 4 mg IVP once; over 2 minutes Route: IVP; Site: right forearm; jw7 06:01 Follow up: Response: No adverse reaction jw7 04:42 Drug: morphine IVP or IV 4 mg IVP once over 4 mins Route: IVP; Infused Over: 4 mins; jj7 Site: right forearm; 06:01 Follow up: Response: No adverse reaction jw7 04:43 Drug: Ondansetron IVP 4 mg IVP once; over 2 minutes Route: IVP; Site: right forearm; jj7 06:01 Follow up: Response: No adverse reaction jw7 06:10 Drug: Ibuprofen PO 800 mg PO once Route: PO; jw7 06:35 Follow up: Response: No adverse reaction jw7 Disposition Summary: 08/11/23 05:51 Discharge Ordered Notes: Discontinue alcohol use Location: Home sp4 Problem: new sp4 Symptoms: have improved sp4 Condition: Stable sp4 Diagnosis - Acute fall at home, contusion of pelvis and coccyx, acute lower back pain, lumbar sp4 spine contusion Followup: sp4 - With: Private Physician - When: 7 - 10 days - Reason: Recheck today's complaints Discharge Instructions: - Discharge Summary Sheet sp4 - Acute Back Pain, Adult sp4 Forms: - Patient Portal Instructions sp4 Prescriptions: - Ibuprofen 800 mg Oral Tablet - take 1 tablet ORAL route every 8 hours As needed take with food; 30 tablet; sp4 Refills: 0, Product Selection Permitted Signatures: Dispatcher [employer] Sandi Smith RN RN jw7 Patience Leigh RN RN jj7 Nicole Vieira RN RN pf1 Silvestre Douglass MD MD sp4
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
[2023-08-11 09:14] VITALS: TEMP 97.8
--- NOTE | 2023-08-11 09:19 | RAD REPORT ---
EXAM DESCRIPTION: CT - Spine Lumbar Wo Con - 08/11/2023 6:51 am CLINICAL HISTORY: Female, 43 years old, fall, L-spine and pelvic pain COMPARISON: none available at the time of dictation TECHNIQUE: CT acquisition of the lumbar spine and pelvis without contrast. Coronal and sagittal refo rmatted images provided. This exam was performed according to departmental dose-optimization program which includes automated exposure control, adjustment of the mA and/or kV according to patient size, and/or use of iterative reconstruction technique. FINDINGS: LUMBAR SPINE: Patient motion artifact at the level of L4. Morphology: No fracture. Vertebral body heights are normal. Alignment: No traumatic listhesis. Straightening of normal lordotic curvature which may be positional . Disc Levels: No significant degenerative change. Other: No acute finding of the imaged abdominopelvic contents and paraspinal soft tissues. Partially imaged postsurgical change of the stomach. PELVIS: Bones: No acute fracture. Normal osseous mineralization. Joints: No dislocation. Mild bilateral hip osteoarthrosis. No obvious joint effusion. Other: No acute finding of the imaged pelvic contents, muscles/tendons, or soft tissues. Enlarged carter earance of the uterus with a slightly hyperdense lesion near the right fundus measuring approximately 6 cm in largest diameter. Prominent distention of the urinary bladder. IMPRESSION: 1. No acute osseous finding of the lumbar spine or pelvis. 2. Mild bilateral hip osteoarthrosis. 3. Enlarged and heterogeneous (presumed fibroid) uterus, which may be further characterized with ou tpatient pelvic ultrasound Electronically signed by: Robi Santiago MD 08/11/2023 05:25 AM CLINICAL STUDY MANAGER Due to temporary technical issues with the PACS/Fluency reporting system, reports are being signed by the in house radiologists without review as a courtesy to insure prompt reporting. The interpreting radiologist is fully responsible for the content of the report.
[2023-08-11 09:28] VITALS: BP 105/65; O2SAT 96
--- NOTE | 2023-08-11 09:35 | RAD REPORT ---
EXAM DESCRIPTION: CT - Pelvis Wo Cont - 08/11/2023 6:51 am EXAMINATION: CT PELVIS WITHOUT IV CONTRAST, CT LUMBAR SPINE WITHOUT IV CONTRAST CLINICAL HISTORY: Female, 43 years old, fall, L-spine and pelvic pain COMPARISON: None available at the time of dictation TECHNIQUE: CT acquisition of the lumbar spine and pelvis without contrast. Coronal and sagittal refo rmatted images provided. This exam was performed according to departmental dose-optimization program which includes automated exposure control, adjustment of the mA and/or kV according to patient size, and/or use of iterative reconstruction technique. FINDINGS: LUMBAR SPINE: Patient motion artifact at the level of L4. Morphology: No fracture. Vertebral body heights are normal. Alignment: No traumatic listhesis. Straightening of normal lordotic curvature which may be positional . Disc Levels: No significant degenerative change. Other: No acute finding of the imaged abdominopelvic contents and paraspinal soft tissues. Partially imaged postsurgical change of the stomach. PELVIS: Bones: No acute fracture. Normal osseous mineralization. Joints: No dislocation. Mild bilateral hip osteoarthrosis. No obvious joint effusion. Other: No acute finding of the imaged pelvic contents, muscles/tendons, or soft tissues. Enlarged carter earance of the uterus with a slightly hyperdense lesion near the right fundus measuring approximately 6 cm in largest diameter. Prominent distention of the urinary bladder. IMPRESSION: 1. No acute osseous finding of the lumbar spine or pelvis. 2. Mild bilateral hip osteoarthrosis. 3. Enlarged and heterogeneous (presumed fibroid) uterus, which may be further characterized with ou tpatient pelvic ultrasound Electronically signed by: Robi Santiago MD 08/11/2023 05:25 AM SOURCING ENGINEER Due to temporary technical issues with the PACS/Fluency reporting system, reports are being signed by the in house radiologists without review as a courtesy to insure prompt reporting. The interpreting radiologist is fully responsible for the content of the report.
== END ==
LOC: ER 01:57
DX: S30.0XXA Contusion of lower back and pelvis, initial encounter (principal); W18.30XA Fall on same level, unspecified, initial encounter; Y92.009 Unspecified place in unspecified non-institutional (private) residence as the place of occurrence of the external cause; F10.20 Alcohol dependence, uncomplicated; I10 Essential (primary) hypertension; F17.210 Nicotine dependence, cigarettes, uncomplicated; Z98.82 Breast implant status; Z88.0 Allergy status to penicillin
CPT/HCPCS: 96361; 72131; 72192; 96375; 96374; 99284; J2405 ×2; J7030

== ENCOUNTER 2023-11-27 20:38 | Emergency (ER) | payer BC, OTHER, SELFPAY ==
[2023-11-27 20:58] LABS: Absolute Eosinophils 0.1 K/uL (0-0.5); Absolute Lymphocytes (CBC) 2.3 K/uL (0.7-4.9); Absolute Monocytes 0.3 K/uL (0.1-1.3); Absolute Neutrophil 1.2 K/uL (1.8-8.0); Basophils % 0.4 % (0-1.3); Eosinophils % 1.3 % (0-4.4); Hemoglobin 11.1 g/dL (12.0-15.0); Lymphocytes % 58.6 % (15.3-44.8); MCHC 33.5 g/dL (32.0-36.0); MCV 98.5 fL (80-100); MPV 7.6 fL (7.6-11.3); Monocytes % 8.5 % (3.3-12.3); Neutrophils % 31.2 % (41.7-73.7); Platelets 164 thou/uL (152-406); RBC Red Blood Cell Count 3.35 M/uL (3.86-4.86); Red Cell Distribution Width 13.8 % (12.1-15.2)
[2023-11-27 21:18] LABS: Anion Gap 8.6 mEq/L (5.0-15.0); BUN Blood Urea Nitrogen 4 mg/dL (7-18); Bicarbonate 24 mEq/L (21-32); Glomerular Filtration Rate 114 ml/min (=/>90); Glucose Level 84 mg/dL (74-106); Potassium 3.6 mEq/L (3.5-5.1); Sodium Level 131 mEq/L (136-145)
[2023-11-27 21:22] LABS: Troponin High Sensitivity < 3.0 pg/mL (<58.9)
[2023-11-27] MEDS ORDERED: ONDANSETRON 4 MG/2 ML VIAL ONE (21:46)
[2023-11-27] MEDS ORDERED: NA CHLORIDE 0.9% 1,000 ML ONE ×2 (21:46→23:15)
--- NOTE | 2023-11-27 22:34 | RAD REPORT ---
EXAM DESCRIPTION: Dejuan Single View11/27/2023 9:46 pm CLINICAL HISTORY: Chest pain COMPARISON: 2022 FINDINGS: The mediastinum appears mildly more prominent than on the prior exam Lungs appear clear. Heart is normal size IMPRESSION: The mediastinum appears mildly more prominent than on the prior exam. This probably is t he result of technique and positioning. However, as subtle lymphadenopathy can have this appearance it is recommended that the patient have P A and lateral chest films for further evaluation
--- NOTE | 2023-11-28 01:46 | ER ---
[facility] Age: 43 yrs Sex: Female : 1980 Arrival Date: 11/27/2023 Time: 20:38 Bed 20 Private MD: Diagnosis: Chest pain, unspecified;Anxiety disorder, unspecified Presentation: 11/26 20:53 Chief complaint: EMS states: Called to patients home due to patient having chest pain cm10 for the last 4 weeks that got worse today. Pt has a history of Anxiety. Pt received Ativan 2mg IVP en route. Pt drowsy but easy to awake during triage. Coronavirus screen: Client denies travel out of the [place] in the last 14 days. At this time, the client does not indicate any symptoms associated with coronavirus-19. Ebola Screen: Patient denies travel to an Ebola-affected area in the 21 days before illness onset. No symptoms or risks identified at this time. Initial Sepsis Screen: Does the patient meet any 2 criteria? No. Patient's initial sepsis screen is negative. Does the patient have a suspected source of infection? No. Patient's initial sepsis screen is negative. Risk Assessment: Do you want to hurt yourself or someone else? Patient reports no desire to harm self or others. Onset of symptoms was November 27, 2023. 20:53 Method Of Arrival: EMS: [place] [id number] 20:53 Acuity: PAYAL 3 cm10 20:54 Care prior to arrival: Medication(s) given: Ativan 2mg IV initiated. 18 GA, in the left cm10 antecubital area. Triage Assessment: 20:55 General: Appears in no apparent distress. comfortable, Behavior is drowsy. Pain: cm10 Complains of pain in chest. Neuro: No deficits noted. Level of Consciousness is awake. Respiratory: No deficits noted. Airway is patent Respiratory effort is even, unlabored, Respiratory pattern is regular, symmetrical. Historical: - Allergies: 20:55 PENICILLINS; cm10 - PMHx: 20:55 Alcoholism; depressive disorder; Hypertensive disorder; Hypothyroidism; cm10 - PSHx: 20:55 abdominoplasty; breast implants; gastric sleeve; tubal ligation; cm10 - Immunization history:: Adult Immunizations up to date. - Infectious Disease History:: Denies. - Social history:: Smoking status: Reported history of juuling and/or vaping. Screenin:56 [facility] ED Fall Risk Assessment (Adult) History of falling in the last 3 months, cm10 including since admission No falls in past 3 months (0 pts) Confusion or Disorientation Yes (5 pts) Intoxicated or Sedated Yes (3 pts) Impaired Gait Yes (1 pt) Mobility Assist Device Used No (0 pt) Altered Elimination No (0 pt) Score/Fall Risk Level 3 or more points = High Risk Oriented to surroundings, Maintained a safe environment, Hourly rounding (assess needs \\T\\ fall precautionary measures) done. Abuse screen: Denies threats or abuse. Denies injuries from another. Nutritional screening: No deficits noted. Tuberculosis screening: No symptoms or risk factors identified. Assessment: 21:14 General: Appears in no apparent distress. Behavior is drowsy, flat. Pain: Complains of tl4 pain in chest. Neuro: Level of Consciousness is awake, obeys commands, lethargic. Cardiovascular: Reports chest pain, Denies lightheadedness, nausea, palpitations, shortness of breath, syncope, Capillary refill < 3 seconds Patient's skin is warm and dry. Respiratory: Airway is patent Respiratory effort is even, unlabored, Respiratory pattern is regular, symmetrical, Breath sounds are clear bilaterally. GI: No signs and/or symptoms were reported involving the gastrointestinal system. : No signs and/or symptoms were reported regarding the genitourinary system. EENT: No signs and/or symptoms were reported regarding the EENT system. Derm: No signs and/or symptoms reported regarding the dermatologic system. Musculoskeletal: No signs and/or symptoms reported regarding the musculoskeletal system. 22:21 Reassessment: No changes from previously documented assessment. Patient and/or family tl4 updated on plan of care and expected duration. Pain level reassessed. Patient is alert, oriented x 3, equal unlabored respirations, skin warm/dry/pink. Pt incontinent of urine. Pt sleeping. 22:30 General: Appears in no apparent distress. comfortable, Behavior is drowsy, flat. Pain: jw7 Unable to use pain scale. Patient appears quiet, Pt resting, rousable with voice, drowsy. Neuro: Level of Consciousness is awake, obeys commands, lethargic, Oriented to unable to access, pt drowsy, rousable to voice, unable to stay awake or answer questions to obtain orientation. . Cardiovascular: Heart tones S1 S2 present Capillary refill < 3 seconds Clubbing of nail beds is absent JVD is absent Patient's skin is warm and dry. Respiratory: Airway is patent Trachea midline Respiratory effort is even, unlabored, Respiratory pattern is regular, symmetrical, Breath sounds are clear bilaterally. GI: No deficits noted. Abdomen is flat, non-distended, Bowel sounds present X 4 quads. : No deficits noted. EENT: No deficits noted. Derm: Skin is intact, is healthy with good turgor, Skin is dry, Skin is normal, Skin temperature is warm. Musculoskeletal: Circulation, motion, and sensation intact. Range of motion: intact in all extremities. 23:49 Reassessment: Patient appears in no apparent distress at this time. No changes from 7 previously documented assessment. Patient and/or family updated on plan of care and expected duration. Pain level reassessed. 11/27 01:02 Reassessment: Patient appears in no apparent distress at this time. No changes from jw7 previously documented assessment. Patient and/or family updated on plan of care and expected duration. Pain level reassessed. 02:00 General: Notified patient of Discharge orders and need for a ride home. Patient jwNoa requested help calling her to come pick her up. . 02:00 Reassessment: Patient appears in no apparent distress at this time. No changes from 7 previously documented assessment. Patient and/or family updated on plan of care and expected duration. Pain level reassessed. 02:20 General: Attempted to call Patient's , no answer. . jw7 02:25 General: Attempted to call Patient's , no answer. . jw7 02:30 General: Attempted to call Patient's , no answer. jw7 02:35 General: Asked patient if there was anyone else that we could call to come pick her up, jw7 patient demanded "Just give me a little while longer"; asked patient if we could call her sister, patient refused. . 02:45 General: Attempted to call Patient's , no answer. jw7 02:49 General: Called patient's sister, requested if there was someone that could take jw7 patient home, refused to answer and hung-up. . 03:00 Reassessment: Patient appears in no apparent distress at this time. No changes from jw7 previously documented assessment. Patient and/or family updated on plan of care and expected duration. Pain level reassessed. Patient is alert, oriented x 3, equal unlabored respirations, skin warm/dry/pink. 03:48 General: Attempted to call at number provided, no answer. jw7 03:53 General: Woke patient up and requested to try calling someone to pick her up, patient jw7 stated she would make some calls. . 04:00 Reassessment: Patient appears in no apparent distress at this time. No changes from jw7 previously documented assessment. Patient and/or family updated on plan of care and expected duration. Pain level reassessed. Patient is alert, oriented x 3, equal unlabored respirations, skin warm/dry/pink. 05:00 Reassessment: Patient appears in no apparent distress at this time. No changes from jw7 previously documented assessment. Patient and/or family updated on plan of care and expected duration. Pain level reassessed. Patient is alert, oriented x 3, equal unlabored respirations, skin warm/dry/pink. Vital Signs: 11/26 20:53 BP 91 / 62; Pulse 78; Resp 18; Temp 97.9; Pulse Ox 100% on R/A; Pain 10/10; cm10 21:13 BP 89 / 58; Pulse 74; Resp 16; Pulse Ox 99% on R/A; tl4 22:00 BP 86 / 55; Pulse 70; Resp 17 S; Pulse Ox 98% on R/A; jw7 22:30 BP 80 / 52; Pulse 60; Resp 17 S; Pulse Ox 98% on R/A; jw7 23:00 BP 80 / 48; Pulse 61; Resp 17 S; Pulse Ox 98% on R/A; jw7 23:30 BP 87 / 52; Pulse 68; Resp 17 S; Pulse Ox 98% on R/A; jw7 11/27 00:00 BP 91 / 66; Pulse 71; Resp 18 S; Pulse Ox 98% on R/A; jw7 00:30 BP 84 / 54; Pulse 62; Resp 17 S; Pulse Ox 98% on R/A; jw7 01:30 BP 94 / 75; Pulse 69; Resp 17 S; Pulse Ox 100% on R/A; jw7 02:30 BP 104 / 86; Pulse 71; Resp 17 S; Pulse Ox 100% on R/A; jw7 03:30 BP 88 / 61; Pulse 72; Resp 16 S; Pulse Ox 100% on R/A; jw7 04:30 BP 89 / 65; Pulse 70; Resp 17 S; Pulse Ox 100% on R/A; jw7 11/26 20:53 Pain Scale: Adult cm10 ED Course: 11/26 20:46 Patient arrived in ED. rv1 20:47 Frida Moncada FNP-C is PHCP. kb 20:47 Wayne Diaz MD is Attending Physician. kb 20:53 Basic Metabolic Panel Sent. cm10 20:53 CBC with Diff Sent. cm10 20:53 D-Dimer Sent. cm10 20:53 Magnesium Sent. cm10 20:53 Troponin HS Sent. cm10 20:54 Triage completed. cm10 20:56 Arm band placed on Patient placed in an exam room, on a stretcher, on cardiac tech, cm10 on pulse oximetry. 20:57 Maintain EMS IV. Dressing intact. Good blood return noted. Site clean \\T\\ dry. Gauge \\T\\ cm 10 site: 18g left AC. 20:57 Patient has correct armband on for positive identification. Placed in gown. Bed in low cm10 position. Call light in reach. Side rails up X2. Client placed on continuous cardiac and pulse oximetry monitoring. NIBP monitoring applied. monitoring tech on. 21:12 Artem Lawrence, ANDREY is Primary Nurse. tl4 21:12 Basic Metabolic Panel Sent. tl4 21:12 D-Dimer Sent. tl4 21:12 Magnesium Sent. tl4 21:12 Troponin HS Sent. tl4 21:13 IV discontinued, intact, bleeding controlled, No redness/swelling at site. Pressure tl4 dressing applied, Pt self removed IV. 21:17 No provider procedures requiring assistance completed. tl4 21:48 XRAY Chest (1 view) In Process Unspecified. EDMS 22:15 Inserted saline lock: 20 gauge in right forearm, using aseptic technique. tl4 22:27 Provided Education on: ED process. Door closed. Noise minimized. Lights dimmed. Moved tl4 to private room. Warm blanket given. Pillow given. Repositioned patient. Cleaned of incontinence. Linen changed. 22:28 Report given to ANDREY Junior. tl4 22:38 Sandi Crain, RN is Primary Nurse. jw7 11/27 01:02 Troponin High Sensitivity Sent. jw7 02:35 IV discontinued, intact, bleeding controlled, No redness/swelling at site. Pressure jw7 dressing applied. Administered Medications: 11/26 22:14 Drug: NS 0.9% IV 1000 ml IV at 1000 ml once Route: IV; Rate: 1000 ml; Site: right tl4 forearm; Delivery: Primary tubing; 23:18 Follow up: Response: No adverse reaction; IV Status: Completed infusion; IV Intake: jw7 1000ml 23:18 Drug: NS 0.9% IV 1000 ml IV at 1000 ml once Route: IV; Rate: 1000 ml; Site: right jw7 forearm; 11/27 01:02 Follow up: Response: No adverse reaction; IV Status: Completed infusion; IV Intake: jw7 1000ml Medication: 11/26 20:56 VIS not applicable for this client. cm10 Intake: 23:18 IV: 1000ml; Total: 1000ml. jw7 11/27 01:02 IV: 1000ml; Total: 2000ml. jw7 Outcome: 01:46 Discharge ordered by . rt 05:11 Discharged to home ambulatory, jw7 05:11 Condition: stable 05:11 Discharge instructions given to patient, Instructed on discharge instructions, follow up and referral plans. no driving heavy equipment, Demonstrated understanding of instructions, follow-up care, medications, Prescriptions given X 1, 05:11 Patient left the ED. jw7 Signatures: Dispatcher [employer] EDMS Frida Moncada, DIRECTOR OF STUDENT FINANCIAL SERVICES-C DIRECTOR OF STUDENT FINANCIAL SERVICES-Ckb Sandi Crain, RN RN jw7 Wayne Diaz MD MD rt Ariella Mcghee rv1 Diane Bustamante RN RN cm10 Artem Lawrence RN RN tl4 Corrections: (The following items were deleted from the chart) 11/26 21:00 20:53 BP 91 / 62; Pulse 78bpm; Resp 18bpm; Pulse Ox 100% RA; Temp 97.9F; cm10 cm10
--- NOTE | 2023-11-28 01:46 | EDPHYS ---
Physician Documentation [facility] Name: Serina Shoemaker Age: 43 yrs Sex: Female : 1980 Arrival Date: 11/27/2023 Time: 20:38 Bed 20 Private MD: ED Physician Wayne Diaz HPI: 11/26 22:55 This 43 yrs old Female presents to ER via EMS with complaints of chest pain. kb 11/27 00:00 Pt is a 43 year old female who called EMS for chest pain and shortness of breath that kb started 4 weeks ago. Nothing makes pain better or worse. Pt states pain has been constant, waxing and waning. EMS reports pt was very anxious so they gave 2mg Ativan IV prior to arrival. Since then pt has been very drowsy. Historical: - Allergies: 11/26 20:55 PENICILLINS; cm10 - PMHx: 20:55 Alcoholism; depressive disorder; Hypertensive disorder; Hypothyroidism; cm10 - PSHx: 20:55 abdominoplasty; breast implants; gastric sleeve; tubal ligation; cm10 - Immunization history:: Adult Immunizations up to date. - Infectious Disease History:: Denies. - Social history:: Smoking status: Reported history of juuling and/or vaping. ROS: 22:56 Constitutional: As per HPI kb Exam: 22:56 Head/Face: Normocephalic, atraumatic. ENT: Moist Mucous membranes Cardiovascular: kb Regular rate Respiratory: Respirations even and unlabored. No increased work of breathing. Talking in full sentences Abdomen/GI: Soft, non-tender. No distention Skin: Warm, dry with normal turgor. Normal color. MS/ Extremity: Pulses equal, no cyanosis. Neurovascular intact. Full, normal range of motion. Neuro: Awake and alert, GCS 15, oriented to person, place, time, and situation. Moves all extremities. 22:56 ECG was reviewed by the Attending Physician. 11/27 00:00 Constitutional: The patient appears in no acute distress, alert, drowsy kb Vital Signs: 11/26 20:53 BP 91 / 62; Pulse 78; Resp 18; Temp 97.9; Pulse Ox 100% on R/A; Pain 10/10; cm10 21:13 BP 89 / 58; Pulse 74; Resp 16; Pulse Ox 99% on R/A; tl4 22:00 BP 86 / 55; Pulse 70; Resp 17 S; Pulse Ox 98% on R/A; jw7 22:30 BP 80 / 52; Pulse 60; Resp 17 S; Pulse Ox 98% on R/A; jw7 23:00 BP 80 / 48; Pulse 61; Resp 17 S; Pulse Ox 98% on R/A; jw7 23:30 BP 87 / 52; Pulse 68; Resp 17 S; Pulse Ox 98% on R/A; jw7 11/27 00:00 BP 91 / 66; Pulse 71; Resp 18 S; Pulse Ox 98% on R/A; jw7 00:30 BP 84 / 54; Pulse 62; Resp 17 S; Pulse Ox 98% on R/A; jw7 01:30 BP 94 / 75; Pulse 69; Resp 17 S; Pulse Ox 100% on R/A; jw7 02:30 BP 104 / 86; Pulse 71; Resp 17 S; Pulse Ox 100% on R/A; jw7 03:30 BP 88 / 61; Pulse 72; Resp 16 S; Pulse Ox 100% on R/A; jw7 04:30 BP 89 / 65; Pulse 70; Resp 17 S; Pulse Ox 100% on R/A; 7 11/26 20:53 Pain Scale: Adult cm10 MDM: 11/26 20:47 Patient medically screened. 11/27 00:02 Differential diagnosis: abnormal EKG, acute myocardial infarction, anxiety, coronary kb artery disease chest wall pain, pulmonary embolus. Data reviewed: vital signs, nurses notes. Consideration of Admission/Observation Escalation of care including admission/observation considered. admission considered for chest pain and hypotension. Dr Baca recommends giving the pt more time for the ativan to wear off. States pt does not need to be admitted at this point. . Management of patient was discussed with the following: Hospitalist: Dr Baca. Historians other than the Patient: EMS: [facility]. 00:58 Transition of care: After a detail discussion of the patient's case, care is kb transferred to Wayne Diaz MD. 11/26 20:48 Order name: Basic Metabolic Panel; Complete Time: 21:23 kb 11/26 20:48 Order name: CBC with Diff; Complete Time: 21:09 kb 11/26 20:48 Order name: D-Dimer; Complete Time: 21:45 kb 11/26 20:48 Order name: Magnesium; Complete Time: 21:23 kb 11/26 20:48 Order name: Troponin HS; Complete Time: 21:23 kb 11/27 00:22 Order name: Troponin High Sensitivity; Complete Time: 01:28 kb 11/26 20:48 Order name: XRAY Chest (1 view); Complete Time: 22:38 kb 11/26 20:48 Order name: EKG; Complete Time: 20:48 kb 11/26 20:48 Order name: Cardiac monitoring; Complete Time: 20:53 kb 11/26 20:48 Order name: EKG - Nurse/Tech; Complete Time: 21:12 kb 11/26 20:48 Order name: IV Saline Lock; Complete Time: 20:53 kb 11/26 20:48 Order name: Labs collected and sent; Complete Time: 20:53 kb 11/26 20:48 Order name: O2 Per Protocol; Complete Time: 20:53 kb 11/26 20:48 Order name: O2 Sat Monitoring; Complete Time: 20:53 kb 11/26 22:38 Order name: Vital Signs; Complete Time: 22:47 kb EC/10 22:56 Rate is 67 beats/min. Rhythm is regular. QRS [place] is Normal. [place] interval is normal at kb 176 msec. QRS interval is normal at 104 msec. QT interval is normal at 471 msec. Administered Medications: 22:14 Drug: NS 0.9% IV 1000 ml IV at 1000 ml once Route: IV; Rate: 1000 ml; Site: right tl4 forearm; Delivery: Primary tubing; 23:18 Follow up: Response: No adverse reaction; IV Status: Completed infusion; IV Intake: jw7 1000ml 23:18 Drug: NS 0.9% IV 1000 ml IV at 1000 ml once Route: IV; Rate: 1000 ml; Site: right jw7 forearm; 11/27 01:02 Follow up: Response: No adverse reaction; IV Status: Completed infusion; IV Intake: jw7 1000ml Disposition: 02:35 Co-signature as Attending Physician, Wayne Diaz MD I reviewed the patient's care rt provided by Advanced Practice Provider \T\ agree w/ the diagnosis \T\ care plan. I personally saw the pt \T\ performed a substantive portion of the visit, incldng all aspects of the (History/Exam/Medical Decision Making). Symptoms improved with treatment in the ED, vital signs improving. Repeat troponin is negative, stable for outpatient care.. Disposition Summary: 11/28/23 01:46 Discharge Ordered Notes: Location: Home rt Problem: new rt Symptoms: have improved rt Condition: Stable rt Diagnosis - Chest pain, unspecified rt - Anxiety disorder, unspecified rt Followup: rt - With: Private Physician - When: 2 - 3 days - Reason: Discharge Instructions: - Discharge Summary Sheet rt - Nonspecific Chest Pain, Adult rt - Managing Anxiety, Adult rt Forms: - Medication Reconciliation Form rt - Antibiotic Education rt - Prescription Opioid Use rt - Patient Portal Instructions rt - Leadership Thank You Letter rt Prescriptions: - Hydroxyzine HCl 25 mg Oral Tablet - take 1 tablet ORAL route every 6 hours As needed; 12 tablet; Refills: 0, rt Product Selection Permitted Signatures: Dispatcher [employer] [facility] Frida Moncada FNP-C FNP-Ckb Waits, Jodi RN RN jw7 aWyne Diaz MD MD rt Diane Bustamante RN RN cm10 Artem Lawrence RN RN tl4 Corrections: (The following items were deleted from the chart) 11/26 23:28 22:39 Chest Pa And Lat (2 Views)+[email or web address] ordered. [facility] 11/27 00:02 11/26 22:56 Constitutional: This is a well developed, well nourished patient who is kb awake, alert, and in no acute distress. Head/Face: Normocephalic, atraumatic. ENT: Moist Mucous membranes Cardiovascular: Regular rate Respiratory: Respirations even and unlabored. No increased work of breathing. Talking in full sentences Abdomen/GI: Soft, non-tender. No distention Skin: Warm, dry with normal turgor. Normal color. MS/ Extremity: Pulses equal, no cyanosis. Neurovascular intact. Full, normal range of motion. Neuro: Awake and alert, GCS 15, oriented to person, place, time, and situation. Moves all extremities. Normal gait. kb
[2023-11-28 05:24] VITALS: TEMP 97.9
[2023-11-28 05:42] VITALS: BP 89/65; O2SAT 100
--- NOTE | 2023-11-30 13:24 | EKG ---
Test Date: 2023-11-27 Test Time: 21:10:42 Wool Sampler: TL MEASUREMENT RESULTS: Intervals: Rate: 67 LA: 176 QRSD: 104 QT: 446 QTc: 471 [place]: P: 57 LA: 176 QRS: 79 T: 70 INTERPRETIVE STATEMENTS: Normal sinus rhythm Normal ECG Compared to ECG 06/06/2023 17:18:21 ST (T wave) deviation no longer present Electronically Signed On 11-30-23 13:18:22 CDT by [employer]
== END 2023-11-28 05:11 | disposition home or self-care (01) ==
LOC: ER 20:38
DX: F41.9 Anxiety disorder, unspecified (principal); F10.20 Alcohol dependence, uncomplicated; Z98.82 Breast implant status
CPT/HCPCS: 36415; 71045; 80048; 83735; 84484; 85025; 85379; 93005; 96360; 96361; 99285; J2405; J7030